=== PATIENT | female | born 1965 | race Caucasian/White ===

== ENCOUNTER 2016-10-18 19:18 | Inpatient (IN) ==
[2016-10-18] MEDS ORDERED: Ondansetron 4 MG/2 ML VIAL IV ONE (19:25)
--- NOTE | 2016-10-18 19:29 | Emergency Department Note ---
Disposition Clinical Impression: Nausea and vomiting, Chronic anemia, COPD exacerbation, CHF (congestive heart failure) Disposition: Admitted As Inpatient Condition: Fair Referrals: NO,PCP [Non-Partnered Physician] - Forms: ED Satisfaction Letter Time of Disposition: 23:04 Nausea/Vomiting/Diarrhea HPI - General Chief complaint: ED Nausea/Vomiting/Diarrhea Stated complaint: N/V Time Seen by Provider: 10/18/16 19:21 Source: patient, EMS Mode of arrival: EMS Limitations: physical limitation Nursing Notes Reviewed: Yes Vital Signs Reviewed: Yes - History of Present Illness HPI Narrative: This is a 51-year-old female who is morbidly obese who presents with nausea, vomiting, and diarrhea. None of these complaints are new to patient she states she has been on hospice care for CHF and states she has been doing this since July. Patient states she is now having trouble holding liquids down and she has not been eating for a month and a half according to patient although again she is morbidly obese. Patient does not really have any new complaints she states her abdomen hurts when she vomits from the dry heaving but does not hurt just sitting there. Patient states she is always short of breath and she does wear BiPAP and oxygen. Patient is not running any fevers. Patient's having no new urinary symptoms. Patient denies any chest pain. Pt Subjective Complaint: nausea, vomiting, diarrhea Onset (ago): month(s) - Related Data Home Medications Medication Instructions Recorded Confirmed Cetirizine HCl [Zyrtec] 10 mg PO DAILY 07/16/15 07/06/16 Cholecalciferol (Vitamin D3) 5,000 unit PO DAILY 07/16/15 07/06/16 [Vitamin D3] Ferrous Sulfate 325 mg PO TID 07/16/15 07/06/16 Glimepiride [Amaryl] 1 mg PO BID 07/16/15 07/06/16 Insulin Glargine,Hum.rec.anlog 67 unit SQ BID 07/16/15 07/06/16 [Lantus Solostar] Ondansetron [Zofran] 4 mg PO Q8H PRN 07/16/15 07/06/16 Atorvastatin [Lipitor] 40 mg PO HS 02/13/16 07/06/16 Fluticasone Propionate Nasal 1 - 2 spray NS DAILY 02/13/16 07/06/16 [Flonase] Guaifenesin [Mucinex] 600 mg PO Q12H 02/13/16 07/06/16 Magnesium Oxide [Mag-Ox] 400 mg PO BID 02/13/16 07/06/16 Oxybutynin [Ditropan] 2.5 mg PO BID 02/13/16 07/06/16 Capsaicin 0.025% [Trixaicin] 1 appl TP TID 05/30/16 07/06/16 Clotrimazole/Betameth Dip CRM 1 appl TP BID 05/30/16 07/06/16 [Lotrisone CRM] Gabapentin [Neurontin] 300 mg PO BID 05/30/16 07/06/16 Insulin LISPRO [Humalog Kwikpen 30 unit SQ TIDWM 05/30/16 07/06/16 U-100] L. Acidophilus/Pectin, [place] 1 cap PO DAILY 05/30/16 07/06/16 [Acidophilus Probiotic Capsule] LORazepam [Ativan] 1 mg PO BID PRN 05/30/16 07/06/16 Levothyroxine [Synthroid] 175 mcg PO DAILY 05/30/16 07/06/16 Lidocaine Patch [Lidoderm 5% patch] 1 patch TP DAILY 05/30/16 07/06/16 Omeprazole [PriLOSEC] 20 mg PO BIDAC 05/30/16 07/06/16 Oxygen 3.5 l NS AD 05/30/16 07/06/16 Saline Nasal [place] [[place] Nasal 1 - 2 spray NS Q4-6H PRN 05/30/16 07/06/16 [place]] Duloxetine HCl [Cymbalta] 120 mg PO DAILY 06/21/16 07/06/16 Previous Rx's Medication Instructions Recorded Budesonide/Formoterol 160/4.5 2 puff IH BIDR #1 inhaler 03/29/16 [Symbicort 160/4.5] Furosemide [Lasix] 80 mg PO BIDDIURETIC #120 tablet 03/29/16 Albuterol Sulfate [Albuterol 2 puff IH Q4HR PRN 30 Days 06/07/16 Inhaler] Cyanocobalamin (B-12) [Vitamin B12] 1,000 mcg PO Tu@0900 #10 tablet 06/07/16 Haloperidol Oral Conc [Haldol] 1 mg PO Q6H PRN #30 mls 07/08/16 LORazepam Oral Conc [Ativan Oral 1 mg PO Q6HR #30 mls 07/08/16 Conc] OxyCODONE Immed Rel [Roxicodone 5 5 mg PO Q2H PRN #70 tab 07/08/16 MG] Sennosides/Docusate Sodium [Senna 2 each PO BID #20 tablet 07/08/16 Plus] Allergies Allergy/AdvReac Type Severity Reaction Status Date / Time aspartame Allergy Hives Verified 06/08/16 15:48 ciprofloxacin [From Cipro] Allergy Hives Verified 06/08/16 15:48 escitalopram [From Lexapro] Allergy Hives Verified 06/08/16 15:48 morphine Allergy Hives Verified 06/08/16 15:48 Penicillins Allergy Hives Verified 06/08/16 15:48 prochlorperazine Allergy Hives Verified 06/08/16 15:48 All systems ED: reviewed and negative except as stated. Constitutional: Reports: other (pt states eating makes her sick). Denies: fever , chills, weakness, weight change Eyes: Denies: eye pain, eye discharge, vision change ENT ED: Denies: ear pain, throat pain, dental pain, hearing loss, epistaxis, congestion, dysphagia Cardiovascular: Denies: chest pain, palpitations, dyspnea on exertion, edema, syncope Respiratory: Reports: dyspnea. Denies: cough, wheezes, hemoptysis, stridor Gastrointestinal: Reports: abdominal pain, nausea, vomiting, diarrhea. Denies: constipation, hematemesis, melena, hematochezia Genitourinary: Denies: dysuria, frequency, hematuria, discharge Musculoskeletal: Denies: back pain, neck pain, arthralgia, myalgia Integumentary: Denies: rash, abrasion, lesions Neurological: Denies: headache, weakness, numbness, paresthesias, confusion, abnormal gait, vertigo Psychiatric: Denies: anxiety, depression, suicidal thoughts, homicidal thoughts , auditory hallucinations, visual hallucinations Endocrine: Reports: fatigue Hematological/Lymphatic: Denies: easy bleeding, easy bruising Allergic/Immunologic: Denies: facial swelling, urticaria Past Medical History - Past Medical History Attestation: Yes The following information was validated with the patient. 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 - Social History Smoking Status: Former smoker (Smoked about 2 packs per day for a long time, quit about 9 years ago) Smokeless Tobacco Status: No Alcohol use: Reports: none Drug use: Reports: none Physical Exam - General Limitations: physical limitation General appearance: alert, in no apparent distress, obese (morbid) - Head Head exam: atraumatic, normocephalic, normal inspection - Eye Eye exam: Present: normal appearance, PERRL, EOMI - ENT ENT exam: normal exam, normal oropharynx, mucous membranes moist - Expanded ENT Exam External ear exam: Present: normal external inspection Mouth exam: Present: normal external inspection Teeth exam: Present: normal inspection Throat exam: Present: normal inspection - Neck Neck exam: Present: normal inspection, full ROM, trachea midline - Chest Chest inspection: Present: normal inspection, symmetric chest wall rise - Respiratory Respiratory exam: Present: other (diminshed probably do to pts size) - Cardiovascular Cardiovascular exam: Present: regular rate, normal rhythm, normal heart sounds - Abdominal Exam Abdominal exam: Present: soft, Non-Tender, other (morbid obesity). Absent: tenderness, distention, guarding, rebound, rigidity - Extremities Exam Extremities exam: Present: normal inspection, full ROM, pedal edema. Absent: tenderness - Expanded Upper Extremity Exam Shoulder exam: Present: normal inspection, full ROM Arm exam: Present: normal inspection, full ROM Elbow exam: Present: normal inspection, full ROM Forearm/Wrist exam: Present: normal inspection, full ROM Hand exam: Present: normal inspection, full ROM Vascular exam: Normal: capillary refill, radial pulse - Expanded Lower Extremity Exam Hip/Pelvis exam: Present: normal inspection, full ROM Upper leg exam: Present: normal inspection, full ROM, swelling Knee exam: Present: normal inspection, full ROM Lower leg exam: Present: normal inspection, full ROM, swelling Ankle exam: Present: normal inspection, full ROM, swelling Foot/toe exam: Present: normal inspection, full ROM, swelling Neurovascular/Tendon exam: Absent: motor deficit, sensory deficit, tendon deficit - Back Exam Back exam: Present: normal inspection, full ROM. Absent: tenderness - Neurological Exam Neurological exam: Present: alert, oriented X3 - Expanded Neurological Exam Patient oriented to: Present: person, place, time Coma Scale Eye Opening: Spontaneous Coma Scale Motor Response: Obeys Commands Coma Scale Verbal Response: Oriented Coma Scale Total: 15 - Psychiatric Psychiatric exam: Present: normal affect, normal mood - Skin Skin exam: Present: warm, dry, intact, normal color Course Vital Signs Temperature 98.2 F 10/18/16 19:20 Pulse Rate 80 10/18/16 19:20 Respiratory Rate 20 10/18/16 19:20 Blood Pressure 98/62 10/18/16 19:20 O2 Sat by Pulse Oximetry 97 10/18/16 19:20 Temperature 98.2 F 10/18/16 19:20 Pulse Rate 80 10/18/16 19:20 Respiratory Rate 16 10/18/16 21:18 Blood Pressure 98/62 10/18/16 19:20 O2 Sat by Pulse Oximetry 100 10/18/16 21:18 Oxygen Delivery Oxygen Delivery Nasal Cannula Nausea/Vomiting/Diarrhea - Medical Records Medical records reviewed: Yes I reviewed the patient's medical records. - Lab Data Lab results reviewed: Yes I reviewed the patient's lab results. - Radiology Data Radiology results reviewed: Yes I reviewed the patient's radiology results. - EKG Data EKG attestation: Yes I reviewed and interpreted this EKG. EKG shows normal: sinus rhythm Rate: normal Rhythm: NSR [place]/QRS: normal Interpretation: no acute changes, nonspecific ST-T wave changes
[2016-10-18] MEDS: 0.9 % Sodium Chloride 500 ML IV SCH (20:19)
[2016-10-18] MEDS ORDERED: Metoclopramide 10 MG/2 ML VIAL IV ONE (20:41)
--- NOTE | 2016-10-18 23:33 | Emergency Department Note ---
START Narrative - START START: PT received in sign out by Dr. Valladares at 2330. Patient will get lab work and the plan is admission for intractable nausea vomiting and acute congestive heart failure. Disposition pending. Admission anticipated.
--- NOTE | 2016-10-18 23:34 | Emergency Department Note ---
Disposition Clinical Impression: Chronic anemia, COPD exacerbation, Acute kidney injury superimposed on chronic kidney disease Nausea and vomiting Qualifiers: Vomiting type: cyclical vomiting Vomiting Intractability: intractable Qualified Code(s): G43.A1 - Cyclical vomiting, intractable CHF (congestive heart failure) Qualifiers: Congestive heart failure type: combined Congestive heart failure chronicity: acute on chronic Qualified Code(s): I50.43 - Acute on chronic combined systolic (congestive) and diastolic (congestive) heart failure Disposition: Admitted As Inpatient Condition: Fair Referrals: NO,PCP [Non-Partnered Physician] - Forms: ED Satisfaction Letter Time of Disposition: 00:59 General Adult HPI - General Chief complaint: ED Nausea/Vomiting/Diarrhea Stated complaint: N/V Time Seen by Provider: 10/18/16 19:21 Source: patient, EMS Mode of arrival: EMS Limitations: physical limitation - History of Present Illness Pain Scale: 7 - Related Data Home Medications Medication Instructions Recorded Confirmed Cetirizine HCl [Zyrtec] 10 mg PO DAILY 07/16/15 07/06/16 Cholecalciferol (Vitamin D3) 5,000 unit PO DAILY 07/16/15 07/06/16 [Vitamin D3] Ferrous Sulfate 325 mg PO TID 07/16/15 07/06/16 Glimepiride [Amaryl] 1 mg PO BID 07/16/15 07/06/16 Insulin Glargine,Hum.rec.anlog 67 unit SQ BID 07/16/15 07/06/16 [Lantus Solostar] Ondansetron [Zofran] 4 mg PO Q8H PRN 07/16/15 07/06/16 Atorvastatin [Lipitor] 40 mg PO HS 02/13/16 07/06/16 Fluticasone Propionate Nasal 1 - 2 spray NS DAILY 02/13/16 07/06/16 [Flonase] Guaifenesin [Mucinex] 600 mg PO Q12H 02/13/16 07/06/16 Magnesium Oxide [Mag-Ox] 400 mg PO BID 02/13/16 07/06/16 Oxybutynin [Ditropan] 2.5 mg PO BID 02/13/16 07/06/16 Capsaicin 0.025% [Trixaicin] 1 appl TP TID 05/30/16 07/06/16 Clotrimazole/Betameth Dip CRM 1 appl TP BID 05/30/16 07/06/16 [Lotrisone CRM] Gabapentin [Neurontin] 300 mg PO BID 05/30/16 07/06/16 Insulin LISPRO [Humalog Kwikpen 30 unit SQ TIDWM 05/30/16 07/06/16 U-100] L. Acidophilus/Pectin, [place] 1 cap PO DAILY 05/30/16 07/06/16 [Acidophilus Probiotic Capsule] LORazepam [Ativan] 1 mg PO BID PRN 05/30/16 07/06/16 Levothyroxine [Synthroid] 175 mcg PO DAILY 05/30/16 07/06/16 Lidocaine Patch [Lidoderm 5% patch] 1 patch TP DAILY 05/30/16 07/06/16 Omeprazole [PriLOSEC] 20 mg PO BIDAC 05/30/16 07/06/16 Oxygen 3.5 l NS AD 05/30/16 07/06/16 Saline Nasal [place] [[place] Nasal 1 - 2 spray NS Q4-6H PRN 05/30/16 07/06/16 [place]] Duloxetine HCl [Cymbalta] 120 mg PO DAILY 06/21/16 07/06/16 Previous Rx's Medication Instructions Recorded Budesonide/Formoterol 160/4.5 2 puff IH BIDR #1 inhaler 03/29/16 [Symbicort 160/4.5] Furosemide [Lasix] 80 mg PO BIDDIURETIC #120 tablet 03/29/16 Albuterol Sulfate [Albuterol 2 puff IH Q4HR PRN 30 Days 06/07/16 Inhaler] Cyanocobalamin (B-12) [Vitamin B12] 1,000 mcg PO Tu@0900 #10 tablet 06/07/16 Haloperidol Oral Conc [Haldol] 1 mg PO Q6H PRN #30 mls 07/08/16 LORazepam Oral Conc [Ativan Oral 1 mg PO Q6HR #30 mls 07/08/16 Conc] OxyCODONE Immed Rel [Roxicodone 5 5 mg PO Q2H PRN #70 tab 07/08/16 MG] Sennosides/Docusate Sodium [Senna 2 each PO BID #20 tablet 07/08/16 Plus] Allergies Allergy/AdvReac Type Severity Reaction Status Date / Time aspartame Allergy Hives Verified 06/08/16 15:48 ciprofloxacin [From Cipro] Allergy Hives Verified 06/08/16 15:48 escitalopram [From Lexapro] Allergy Hives Verified 06/08/16 15:48 morphine Allergy Hives Verified 06/08/16 15:48 Penicillins Allergy Hives Verified 06/08/16 15:48 prochlorperazine Allergy Hives Verified 06/08/16 15:48 Constitutional: Reports: other (pt states eating makes her sick). Denies: fever , chills, weakness, weight change Eyes: Denies: eye pain, eye discharge, vision change ENT ED: Denies: ear pain, throat pain, dental pain, hearing loss, epistaxis, congestion, dysphagia Cardiovascular: Denies: chest pain, palpitations, dyspnea on exertion, edema, syncope Respiratory: Reports: dyspnea. Denies: cough, wheezes, hemoptysis, stridor Gastrointestinal: Reports: abdominal pain, nausea, vomiting, diarrhea. Denies: constipation, hematemesis, melena, hematochezia Genitourinary: Denies: dysuria, frequency, hematuria, discharge Musculoskeletal: Denies: back pain, neck pain, arthralgia, myalgia Integumentary: Denies: rash, abrasion, lesions Neurological: Denies: headache, weakness, numbness, paresthesias, confusion, abnormal gait, vertigo Psychiatric: Denies: anxiety, depression, suicidal thoughts, homicidal thoughts , auditory hallucinations, visual hallucinations Endocrine: Reports: fatigue Hematological/Lymphatic: Denies: easy bleeding, easy bruising Allergic/Immunologic: Denies: facial swelling, urticaria Past Medical History - Past Medical History Medical history: Reports: CHF (Chronic diastolic), COPD (Chronic respiratory failure, on home oxygen and BiPAP), diabetes (On long-term insulin), hyperlipidemia, hypertension, renal disease, thyroid disease (Hypothyroidism), other (Obstructive sleep apnea) Surgical history: Reports: appendectomy, (2), cholecystectomy, herniorrhaphy, orthopedic, other, other (Tonsillectomy) Psychiatric history: Reports: anxiety, depression 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 Valladares at 2330. Patient will get lab work and the plan is admission for intractable nausea vomiting and acute congestive heart failure. Disposition pending. Admission anticipated Time: 23:34 Reevaluation #2: The workup is complete CBC within normal limits chemistry panel shows worsening of her chronic renal insufficiency with acute exacerbation of chronic renal insufficiency. Troponin negative. Chest x-ray read by radiology shows cardiomegaly and mild pulmonary edema. Patient's symptoms are currently being managed with IV antiemetics and fluids. Awaiting hospitalist call back for admission. Patient stable. Time: 00:43 Reevaluation #3: Discussed the case with the hospitalist Dr. Springer. Patient accepted for admission to telemetry in stable condition. Admission orders place. Patient stable Time: 00:59 Vital Signs Temperature 98.2 F 10/18/16 19:20 Pulse Rate 80 10/18/16 19:20 Respiratory Rate 20 10/18/16 19:20 Blood Pressure 98/62 10/18/16 19:20 O2 Sat by Pulse Oximetry 97 10/18/16 19:20 Temperature 98.2 F 10/18/16 19:20 Pulse Rate 80 10/18/16 19:20 Respiratory Rate 16 10/18/16 21:18 Blood Pressure 98/62 10/18/16 19:20 O2 Sat by Pulse Oximetry 100 10/18/16 21:18 Oxygen Delivery Oxygen Delivery Nasal Cannula Medical Decision Making - Lab Data Result diagrams: 10/19/16 00:26 10/18/16 23:00 Lab Results 10/18/16 10/18/16 10/18/16 Range/Units 23:00 23:00 23:00 WBC TNP RBC TNP Hgb TNP Hct TNP MCV TNP MCH TNP MCHC TNP RDW TNP Plt Count TNP MPV TNP Immature Gran % (0-4) % Seg Neutrophils % % Lymphocytes % % Monocytes % % Eosinophils % % Basophils % % Neutrophils # (1.6-8.9) K/mcL Lymphocytes # (0.6-4.6) K/mcL Monocytes # (0.0-1.3) K/mcL Eosinophils # (0.0-0.6) K/mcL Basophils # (0.0-0.2) K/mcL Sodium 135 L (136-145) mEq/L Potassium 4.4 (3.5-4.5) mEq/L Chloride 92 L (98-109) mEq/L Carbon Dioxide 26 (19-29) mEq/L BUN 34 H (7-20) mg/dL Creatinine 2.50 H (0.57-1.11) mg/dL Est GFR ( Amer) 24 L (> 60) Est GFR (Non-Af Amer) 20 L (> 60) BUN/Creatinine Ratio 14 (6-26) Glucose 244 H (70-99) mg/dL Calculated Osmolality 296 (280-300) Calcium 8.9 (8.6-10.8) mg/dL Total Bilirubin 0.7 (0.2-1.2) mg/dL Direct Bilirubin 0.2 (0.0-0.5) mg/dL Indirect Bilirubin 0.5 (0.0-1.2) mg/dL AST 19 (5-34) Units/L ALT 8 (0-55) Units/L Alkaline Phosphatase 159 H (38-126) Units/L Troponin I 0.02 (0-0.03) ng/mL B-Natriuretic Peptide (0-100) pg/mL Serum Total Protein 7.6 (6.0-8.3) g/dL Albumin 2.4 L (3.5-5.0) g/dL Globulin 5.2 H (2.4-3.5) g/dL Albumin/Globulin Ratio 0.5 L (1.1-2.2) Lipase 29 (8-78) Units/L Specimen Rejected 10/18/16 10/19/16 10/19/16 Range/Units 23:00 00:26 23:06 WBC 8.8 RBC 3.83 Hgb 10.6 L Hct 32.4 L MCV 84.6 MCH 27.7 L MCHC 32.7 RDW 15.5 H Plt Count 164 MPV 9.7 Immature Gran % 2.7 (0-4) % Seg Neutrophils % 75.1 % Lymphocytes % 13.2 % Monocytes % 5.9 % Eosinophils % 2.3 % Basophils % 0.8 % Neutrophils # 6.6 (1.6-8.9) K/mcL Lymphocytes # 1.2 (0.6-4.6) K/mcL Monocytes # 0.5 (0.0-1.3) K/mcL Eosinophils # 0.2 (0.0-0.6) K/mcL Basophils # 0.1 (0.0-0.2) K/mcL Sodium (136-145) mEq/L Potassium (3.5-4.5) mEq/L Chloride (98-109) mEq/L Carbon Dioxide (19-29) mEq/L BUN (7-20) mg/dL Creatinine (0.57-1.11) mg/dL Est GFR ( Amer) (> 60) Est GFR (Non-Af Amer) (> 60) BUN/Creatinine Ratio (6-26) Glucose (70-99) mg/dL Calculated Osmolality (280-300) Calcium (8.6-10.8) mg/dL Total Bilirubin (0.2-1.2) mg/dL Direct Bilirubin (0.0-0.5) mg/dL Indirect Bilirubin (0.0-1.2) mg/dL AST (5-34) Units/L ALT (0-55) Units/L Alkaline Phosphatase (38-126) Units/L Troponin I (0-0.03) ng/mL B-Natriuretic Peptide 18 (0-100) pg/mL Serum Total Protein (6.0-8.3) g/dL Albumin (3.5-5.0) g/dL Globulin (2.4-3.5) g/dL Albumin/Globulin Ratio (1.1-2.2) Lipase (8-78) Units/L Specimen Rejected Clotted
[2016-10-18 23:40] LABS: Albumin 2.4 g/dL (3.5-5.0); Albumin/Globulin Ratio 0.5 (1.1-2.2); Bilirubin,Direct 0.2 mg/dL (0.0-0.5); Bilirubin,Indirect 0.5 mg/dL (0.0-1.2); Bilirubin,Total 0.7 mg/dL (0.2-1.2); Calcium 8.9 mg/dL (8.6-10.8); Globulin 5.2 g/dL (2.4-3.5); Potassium 4.4 mEq/L (3.5-4.5); Total Protein 7.6 g/dL (6.0-8.3)
[2016-10-19 00:33] LABS: Basophils # 0.1 K/mcL (0.0-0.2); Basophils % 0.8 %; Eosinophils # 0.2 K/mcL (0.0-0.6); Eosinophils % 2.3 %; Hematocrit 32.4 % (35.3-44.9); Hemoglobin 10.6 g/dL (11.5-15.4); Immature Granulocytes % 2.7 % (0-4); Lymphocytes # 1.2 K/mcL (0.6-4.6); Lymphocytes % 13.2 %; Mean Corpuscular HGB Conc 32.7 g/dL (31.6-35.5); Mean Corpuscular Hemoglobin 27.7 pg (28.0-33.3); Mean Corpuscular Volume 84.6 fL (83.0-100.0); Mean Platelet Volume 9.7 fL (9.4-12.4); Monocytes # 0.5 K/mcL (0.0-1.3); Monocytes % 5.9 %; Neutrophils # 6.6 K/mcL (1.6-8.9); Platelet Count 164 K/mcL (140-400); Red Blood Count 3.83 M/mcL (3.82-4.97); Red Cell Distribution Width 15.5 % (11.5-14.5); Segmented Neutrophils % 75.1 %
[2016-10-19] MEDS ORDERED: Ondansetron 4 MG/2 ML VIAL IVP ONE (00:45)
[2016-10-19] MEDS ORDERED: Albuterol 2.5 MG/3 ML NEBULIZER IH PRN (01:09)
[2016-10-19] MEDS ORDERED: Naloxone 0.4 MG/ML INJ IVP PRN (01:09)
[2016-10-19] MEDS ORDERED: *HR* OxyCODONE Immed Rel 5 MG TABLET PO PRN (01:09)
[2016-10-19] MEDS ORDERED: Haloperidol Oral Conc 10 MG/5 ML UDC PO PRN (01:14)
[2016-10-19] MEDS ORDERED: *HR* LORazepam 1 MG TABLET PO PRN (01:14)
[2016-10-19] MEDS ORDERED: NON-FORMULARY MEDICATION 1 EACH EACH (Oxygen [Oxygen] 3.5 L) NS SCH (01:15)
[2016-10-19] MEDS: Ipratropium/Albuterol Neb 3 ML IH SCH ×5 (02:19→23:13)
[2016-10-19] MEDS: Ondansetron 4 MG/2 ML VIAL IVP PRN ×3 (02:24→20:36)
[2016-10-19] MEDS: 0.9 % Sodium Chloride 1,000 ML IVC SCH (04:39)
[2016-10-19 04:52] LABS: Magnesium 0.9 mg/dL (1.6-2.6); Phosphorous 3.4 mg/dL (2.3-4.7)
[2016-10-19 04:53] LABS: INR 1.2; Prothrombin Time 13.1 Seconds (9.4-12.1)
[2016-10-19 04:56] LABS: Activated Partial Thrombo Time 35.4 Seconds (26.0-36.0)
[2016-10-19 05:15] LABS: Hemoglobin A1C 8.1 %
[2016-10-19 05:16] LABS: Thyroid Stimulating Hormone 3.273 mcIU/mL (0.350-4.840)
--- NOTE | 2016-10-19 05:17 | Internal Med History&Physical ---
Date of Encounter: 10/19/16 Time of Encounter: 01:00 Assessment and Plan (1) Intractable cyclical vomiting with nausea Current visit: Yes Status: Chronic . (2) Acute kidney injury superimposed on chronic kidney disease Current visit: Yes Status: Acute . (3) COPD exacerbation Current visit: Yes Status: Acute . (4) Chronic anemia Current visit: Yes Status: Chronic . (5) Acute exacerbation of COPD with asthma Current visit: Yes Status: Acute . (6) Diastolic CHF Current visit: Yes Status: Chronic . Qualifiers: Congestive heart failure chronicity: chronic Qualified Code(s): I50.32 - Chronic diastolic (congestive) heart failure (7) DMII (diabetes mellitus, type 2) Current visit: Yes Status: Chronic . Qualifiers: Diabetes mellitus complication status: with unspecified complications Diabetes mellitus watermaster insulin use: unspecified watermaster insulin use status Qualified Code(s): E11.8 - Type 2 diabetes mellitus with unspecified complications (8) HLD (hyperlipidemia) Current visit: Yes Status: Chronic . Qualifiers: Hyperlipidemia type: mixed hyperlipidemia Qualified Code(s): E78.2 - Mixed hyperlipidemia (9) HTN (hypertension) Current visit: Yes Status: Chronic . Qualifiers: Hypertension type: unspecified secondary hypertension Qualified Code(s): I15.9 - Secondary hypertension, unspecified; I15 - Secondary hypertension (10) Hypothyroid Current visit: Yes Status: Chronic . Qualifiers: Hypothyroidism type: acquired Qualified Code(s): E03.9 - Hypothyroidism, unspecified (11) Mixed restrictive and obstructive lung disease Current visit: Yes Status: Chronic . (12) Morbid obesity with BMI of 70 and over, adult Current visit: Yes Status: Chronic . (13) VONDA (obstructive sleep apnea) Current visit: Yes Status: Chronic . (14) Obesity hypoventilation syndrome Current visit: Yes Status: Chronic . (15) Hypotension due to medication Current visit: Yes Status: Acute . Internal Medicine - H&P: HPI Chief complaint: Nausea vomiting diarrhea. Abdominal pain. Admitted From: Emergency Dept Plans for Post Hospital Care: Home History of present illness: Ms. Pal is a 51 year old female is significant for COPD-mixed obstructive and restrictive disease, chronic respiratory failure, home oxygen and BiPAP therapy, VONDA/OHS, type 2 diabetes mellitus, hypertension, dyslipidemia, hypothyroidism, CKD III, osteoarthritis, osteopenia, depression and anxiety, chronic diastolic CHF, morbid obesity, former smoker. The patient was visited and interviewed and examined. The patient was admitted to [facility] through the emergency department when she presented via EMS services from home with complaints of intractable nausea vomiting and diarrhea. Patient acknowledges that none of the current symptoms or new. She further reports that she has been enrolled in hospice care for congestive heart failure and states that she has been having these symptoms repetitively since July 2016. She reports she is now having trouble holding liquids down. She has not eaten consistently for over a month and a half. According to the patient, eating makes her sick. She reports and general discomfort of her stomach. This pain is aggravated more from dry heaving. She experiences no pain sitting at rest or lying. She acknowledges some shortness of breath which is a chronic issue. She wears continuous oxygen as well as BiPAP at night she denies any associated fevers chills or sweats. Denies any upper or lower respiratory complaints. Denies any dysuria frequency or hematuria. Denies any bleeding events. Nice chest pain. Reports generalized fatigue. Findings in the ED: Temperature 98.2 pulse 80 respirations 20 blood pressure 98/62 O2 saturation 100% 2 L per nasal cannula. Telemetry panel normal except for sodium of 135 chloride 92. BUN 34 creatinine 2.5 GFR 20. Glucose 244 osm 296. Hepatic function normal except alkaline phosphatase 159. Albumin 2.4-7.6. Troponin 0.02. WBC 8.5 hemoglobin 10.6 MCH 27.7 platelets 164 ,000. RDW 15.5. Differential normal. Lipase 29. BNP 18. CT of the abdomen and pelvis noncontrast demonstrated no acute intra-abdominal findings. Hepatic steatosis noted. No evidence of bowel obstruction or evidence of abnormal bowel wall thickening or distention. Appendix not identified. Gallbladder surgically absent. Mild fatty atrophy of the pancreas. Santillan catheter in place of urinary bladder with collapse. Pelvic organs without acute abnormality. No free air or free fluid within the abdomen. Portable chest x- ray demonstrated persistent cardiomegaly with mild pulmonary edema. No focal consolidation or pleural effusion or pneumothorax identified. EKG normal sinus rhythm with no acute ischemic changes. Preliminary impression suggests functional abdominal pain. This is likely of musculoskeletal etiology. Radiographic studies did not disclose a discrete etiology for patient's persisting pain complaint. As it seems to relate to oral intake possibility of esophagitis gastritis duodenitis laboratory changes may be contributing to much of this. Patient is status post cholecystectomy and appendectomy. Morbidly obese the patient has a degree of anasarca and hepatic steatosis. Chest x-ray suggests cardiomegaly with mild pulmonary edema. Cyclic nausea vomiting and diarrhea may be a consequence of patient's significant medication pharmacology with adverse drug drug interaction and a relatively fasted for further elucidation will proceed. The patient given her significant comorbidities is at risk for further acute clinical decline and morbidity in this setting. Workup and treatment to progress comprehensively. Cumulative laboratory and radiographic data base was reviewed, considered and discussed. Pertinent ancillary medical records including ECW and PCI documentation, when available, was reviewed and considered. Given the patient's presenting concerns, past medical history, clinical findings and symptoms, she is admitted at this time will undergo further evaluation and disposition. Orders were written as per the computerized physician bordereau clerk system.......................................................................... .................... Consultative opinion and will be sought as clinical circumstances justify. Pain management needs will be addressed. Laboratory and radiographic data base will be updated as appropriate. Studies include: Cultures of blood urine sputum, cardiac injury panels, BNP, metabolic and hematologic panels, magnesium, phosphorus, ionized calcium, thyroid panel, lipid profile, HbgA1c, amylase, lipase, C-peptide, CRP, sed rate, respiratory infection profile, respiratory virus panel, blood gas, lactic acid, UDS, urinalysis, serologies, etc. Precautions: Aspiration, fall, delirium protocol/surveillance initiated. Telemetry with continuous hemodynamic monitoring and pulse oximetry initiated. Empiric antibody coverage: pending culture data. Bowel rest imposed. Nothing by mouth status to progress to clear liquids and progressed to ADA/cardiac diet as her clinical circumstances permit. Diabetic, prokinetic, probiotic therapy will be employed. Acute heart failure protocol/surveillance initiated. 1500 mL fluid total per 24 -hour restriction. No added salt diet restriction. Strict input output and daily weights. Calorie counts. Gentle diuresis with careful attention to metabolic and acid base balance and deficit corrections. Special studies: CT chest, CT abdomen/pelvis, chest x-ray, telemetry, EKG, bladder scan, postvoid, US retroperitoneum, echocardiogram.. Pulmonary toilet: Incentive spirometry, aerosol bronchodilator, mucolytic, antitussive, supplemental oxygen. Corticosteroid therapy may be employed. CPAP /BiPAP supplemental oxygen delivery employed. Aerosol Mucomyst therapy may be employed. Fluid and electrolyte repletion efforts will proceed. Careful attention to fluid balance and renal recovery will be emphasized. Avoidance of nephrotoxic exposure and adverse drug drug interaction in the setting of impaired renal function will be monitored closely. Acute coronary syndrome protocol/surveillance initiated. DVT and PUD prophylaxis initiated: PPI therapy, intermittent pneumatic cuffs. Subcutaneous heparin/lovenox. Early ambulation will be encouraged. Immunization updates recommended. Influenza and pneumococcal vaccinations as part of ongoing preventative healthcare recommendations strongly recommended. Smoking cessation counseling briefly addressed. Patient is a former smoker. Nicotine substitute will be provided on an as request basis. Advanced care directive discussion briefly addressed. Patient does not declare any healthcare restrictions at this time. Cardiovascular risk appraisal and cardiovascular risk reduction efforts will be emphasized. Physical and occupational therapy may be counseled to evaluate patient's functional capacity and progress mobility if her circumstances justify. Sliding scale /basal insulin coverage, ADA dietary restraint and schedule an as- needed basis fingerstick glucose assessments were initiated. Nutrition/diabetes education counseling may be considered as circumstances permit. Outpatient medication schedules will be reviewed confirmed and facilitated as appropriate. Reconciliation of home treatments including adjustments, substitutions and reintroduction into the treatment regimen as necessary maintenance therapies for chronic pre-existing medical conditions. Plan of care has been reviewed and discussed in detail with the patient. Questions addressed. Hospital course will depend on clinical findings, treatment response and potential consultative interventions. Patient is at risk for further acute clinical decline and morbidity due to her presenting chief complaints and comorbidities. Condition is serious. Prognosis is guarded. CODE STATUS is reported as full. 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 Obstructive sleep apnea. Hypoventilatory syndrome and the obese.), diabetes, GERD, hyperlipidemia , hypertension, osteoporosis (Sandhya deficiency), renal disease (Urinary incontinence.), thyroid disease, other (Anemia. Iron deficiency. Allergic rhinitis.) Psychiatric history: anxiety, depression, other - Past Surgical History Surgical History: appendectomy, , cholecystectomy, herniorrhaphy, orthopedic, other, sinus surgery (Tonsillectomy adenoidectomy.), other ( Bilateral tubal ligation.) - Social History Smoking Status: Former smoker Packs per day: Smoked approximately 2 packs per day for most of her adult life quit x9yrs Smokeless Tobacco Status: No Alcohol use: none Drug use: none Occupational status: unemployed, disabled Current living situation: With Family Activity Level: Mostly sedentary Recent Out of Country Travel Within the Last 8 Weeks: No Exposure or Possible Exposure to Illness During Travel: No - Family History Mother Adopted: No Living Status: Hx Family Cardiac Disorders: No Hx Family Respiratory Disorders: No Hx Family Cancer: Yes Hx Family GI Disorders: No Hx Family Endocrine Disorder: No Hx Family Neuromuscular Disorders: No Hx Family Neurologic Disorders: No Hx Family HEENT Disorders: No Hx Family Autoimmune Disorders: No Sister Hx Family Cancer: Yes (Sister " female cancer requiring hysterectomy") Father Adopted: No Living Status: Hx Family Cardiac Disorders: No Hx Family Respiratory Disorders: No Hx Family Cancer: No Hx Family GI Disorders: Yes Hx Family Endocrine Disorder: Yes Hx Family Neuromuscular Disorders: No Hx Family Neurologic Disorders: No Hx Family HEENT Disorders: No Hx Family Autoimmune Disorders: No Maternal Grandfather History Unknown: Yes Hx Family Cancer: Yes Internal Medicine - H&P: Meds Cetirizine HCl [Zyrtec] 10 mg PO DAILY 07/16/15 [History] Cholecalciferol (Vitamin D3) [Vitamin D3] 5,000 unit PO DAILY 07/16/15 [History] Ferrous Sulfate 325 mg PO TID 07/16/15 [History] Glimepiride [Amaryl] 1 mg PO BID 07/16/15 [History] Insulin Glargine,Hum.rec.anlog [Lantus Solostar] 67 unit SQ BID 07/16/15 [ History] Ondansetron [Zofran] 4 mg PO Q8H PRN 07/16/15 [History] Atorvastatin [Lipitor] 40 mg PO HS 02/13/16 [History] Guaifenesin [Mucinex] 600 mg PO Q12H 02/13/16 [History] Magnesium Oxide [Mag-Ox] 400 mg PO BID 02/13/16 [History] Oxybutynin [Ditropan] 2.5 mg PO BID 02/13/16 [History] Budesonide/Formoterol 160/4.5 [Symbicort 160/4.5] 2 puff IH BIDR #1 inhaler 04/08 [Rx] Capsaicin 0.025% [Trixaicin] 1 appl TP TID 05/30/16 [History] Clotrimazole/Betameth Dip CRM [Lotrisone CRM] 1 appl TP BID 05/30/16 [History] Gabapentin [Neurontin] 300 mg PO BID 05/30/16 [History] Insulin LISPRO [Humalog Kwikpen U-100] 30 unit SQ TIDWM 05/30/16 [History] LORazepam [Ativan] 1 mg PO BID PRN 05/30/16 [History] Levothyroxine [Synthroid] 175 mcg PO DAILY 05/30/16 [History] Omeprazole [PriLOSEC] 20 mg PO BIDAC 05/30/16 [History] Oxygen 3.5 l NS AD 05/30/16 [History] Saline Nasal [place] [[place] Nasal [place]] 1 - 2 spray NS Q4-6H PRN 05/30/16 [ History] Albuterol Sulfate [Albuterol Inhaler] 2 puff IH Q4HR PRN 30 Days 06/07/16 [Rx] LORazepam Oral Conc [Ativan Oral Conc] 1 mg PO Q6HR #30 mls 07/08/16 [Rx] OxyCODONE Immed Rel [Roxicodone 5 MG] 5 mg PO Q2H PRN #70 tab 07/08/16 [Rx] Cyanocobalamin (B-12) [Vitamin B12] 1,000 mcg PO DAILY 10/19/16 [History] Furosemide [Lasix] 80 mg PO BID 10/19/16 [History] Allergies aspartame Allergy (Verified 06/08/16 15:48) Hives ciprofloxacin [From Cipro] Allergy (Verified 06/08/16 15:48) Hives escitalopram [From Lexapro] Allergy (Verified 06/08/16 15:48) Hives morphine Allergy (Verified 06/08/16 15:48) Hives Penicillins Allergy (Verified 06/08/16 15:48) Hives prochlorperazine Allergy (Verified 06/08/16 15:48) Hives haloperidol [From Haldol] Adverse Reaction (Verified 10/19/16 05:29) Hallucinating All Systems PM: A 10-system review of systems was performed and is negative for pertinent findings except as documented above in the HPI. - Constitutional Constitutional: as per HPI, no chills, no fever(s), no night sweats - EENT Eyes: as per HPI, no change in vision, no discharge, no pain, no photophobia Ears: as per HPI, no ear discharge, no ear pain, no tinnitus Nose, mouth and throat: as per HPI, no dysphagia, no nasal discharge, no neck pain, no sore throat - Cardiovascular Cardiovascular ROS IM: as per HPI, no chest pain, no diaphoresis, no dyspnea, no lightheadedness, no palpitations, no syncope - Respiratory Respiratory: as per HPI, dyspnea, dyspnea on exertion, no cough, no wheezing, no excessive phlegm production - Gastrointestinal Gastrointestinal: as per HPI, abdominal pain, bloating, change in stool character, cramping, diarrhea, loose stools, nausea, vomiting, no coffee ground emesis, no hematemesis, no hematochezia, no melena - Genitourinary Genitourinary: as per HPI, no change in urinary stream, no dysuria, no flank pain, no hematuria Menstruation: as per HPI, post hysterectomy, post menopausal - Musculoskeletal Musculoskeletal ROS IM: as per HPI, no numbness, no tingling - Integumentary Integumentary IM: as per HPI, no rash, no unusual bruising - Neurological Neurological ROS: as per HPI, no confusion, no convulsions, no focal weakness, no numbness, no tingling, no tremor(s) - Psychiatric Psychiatric: as per HPI - Endocrine Endocrine IM: as per HPI - Hematologic/Lymphatic Hematologic/Lymphatic: as per HPI, no easy bruising - Allergic/Immunologic Allergic/Immunologic: as per HPI - Constitutional Vitals: Temp Pulse Resp BP Pulse Ox 97.5 F L 92 15 85/57 95 10/19/16 02:23 10/19/16 02:23 10/19/16 04:30 10/19/16 02:23 10/19/16 04:30 General appearance: Present: disheveled, mild distress, A&O X 3, morbidly obese , answers questions appropriately - Head Head exam: Present: atraumatic, normocephalic - Eye Eye exam: Present: EOMI, PERRL, conjuntiva pink, sclera anicteric Pupils: Present: normal accommodation, PERRL - ENT ENT exam: Present: mucous membranes moist, normal external ear exam, normal oropharynx - Neck Neck exam general surgery: Present: full ROM, supple, trachea midline. Absent: lymphadenopathy, tenderness, nuchal rigidity - Respiratory Respiratory exam: Present: chest wall tenderness, decreased breath sounds, prolonged expiratory phase, rhonchi, wheezes. Absent: accessory muscle use, rales, stridor - Cardiovascular Cardiovascular exam: Present: distant heart sounds, RRR, +S1, +S2. Absent: diastolic murmur, gallop, rubs, systolic murmur - GI/Abdominal GI/Abdominal exam: Present: normal bowel sounds, soft, no peritoneal signs. Absent: distended, tenderness - Extremities Exam Extremities exam: Present: full ROM, warm, radial pulses palpable and symetrical. Absent: calf tenderness, cyanotic, pedal edema - Neurological Exam Neurological exam: Present: alert, CN II-XII intact, oriented X3, no focal deficits. Absent: pronater drift, facial droop, speech deficit - Expanded Neurological Exam Neurological exam expanded: Present: protecting the airway. Absent: expressive aphasia, receptive aphasia Patient oriented to: Present: person, place, time Speech: Present: fluid speech Coma Scale Eye Opening: Spontaneous Coma Scale Motor Response: Obeys Commands Coma Scale Verbal Response: Oriented Coma Scale Total: 15 - Psychiatric Psychiatric exam: Present: normal affect, normal mood - Skin Skin exam: Present: dry, intact, warm. Absent: petechiae, rash, urticaria, vesicles Internal Med - H&P Results - Labs CBC & Chem 7: 10/20/16 03:23 10/20/16 03:23 Labs: Cardiac Enzymes 10/19/16 Range/Units 04:06 Troponin I 0.02 (0-0.03) ng/mL - Impressions Vital Signs Temp Pulse Resp BP Pulse Ox 10/19/16 04:30 15 95 10/19/16 02:23 97.5 F L 92 20 85/57 93 L 10/19/16 01:50 98.2 F 18 80/41 10/18/16 21:18 16 100 10/18/16 19:20 98.2 F 80 20 98/62 97 Intake and Output 10/18/16 10/18/16 10/19/16 15:59 23:59 07:59 Other: Stool Size Moderate Stool Characteristics Normal for Patient Stool Color Brown Weight 222.26 kg Short CBC 10/19/16 10/18/16 Range/Units 00:26 23:00 WBC 8.8 TNP Hgb 10.6 L TNP Hct 32.4 L TNP Plt Count 164 TNP Neutrophils # 6.6 (1.6-8.9) K/mcL BMP 10/18/16 Range/Units 23:00 Sodium 135 L (136-145) mEq/L Potassium 4.4 (3.5-4.5) mEq/L Chloride 92 L (98-109) mEq/L Carbon Dioxide 26 (19-29) mEq/L BUN 34 H (7-20) mg/dL Creatinine 2.50 H (0.57-1.11) mg/dL Glucose 244 H (70-99) mg/dL Calcium 8.9 (8.6-10.8) mg/dL Cardiac Enzymes 10/19/16 10/18/16 Range/Units 04:06 23:00 Troponin I 0.02 0.02 (0-0.03) ng/mL Liver Function 10/18/16 Range/Units 23:00 Total Bilirubin 0.7 (0.2-1.2) mg/dL Direct Bilirubin 0.2 (0.0-0.5) mg/dL AST 19 (5-34) Units/L ALT 8 (0-55) Units/L Alkaline Phosphatase 159 H (38-126) Units/L Albumin 2.4 L (3.5-5.0) g/dL Abnormal lab results Hgb 10.6 g/dL (11.5-15.4) L 10/19/16 00:26 Hct 32.4 % (35.3-44.9) L 10/19/16 00:26 MCH 27.7 pg (28.0-33.3) L 10/19/16 00:26 RDW 15.5 % (11.5-14.5) H 10/19/16 00:26 PT 13.1 Seconds (9.4-12.1) H 10/19/16 04:24 Sodium 135 mEq/L (136-145) L 10/18/16 23:00 Chloride 92 mEq/L (98-109) L 10/18/16 23:00 BUN 34 mg/dL (7-20) H 10/18/16 23:00 Creatinine 2.50 mg/dL (0.57-1.11) H 10/18/16 23:00 Est GFR ( Amer) 24 (> 60) L 10/18/16 23:00 Est GFR (Non-Af Amer) 20 (> 60) L 10/18/16 23:00 Glucose 244 mg/dL (70-99) H 10/18/16 23:00 Hemoglobin A1c 8.1 % (-5.6) H 10/19/16 04:24 Magnesium 0.9 mg/dL (1.6-2.6) L 10/19/16 04:24 Alkaline Phosphatase 159 Units/L (38-126) H 10/18/16 23:00 Creatine Kinase 14 Units/L (29-168) L 10/19/16 04:06 C-Reactive Protein 67 mg/L (Less than 5) H 10/19/16 04:06 Albumin 2.4 g/dL (3.5-5.0) L 10/18/16 23:00 Globulin 5.2 g/dL (2.4-3.5) H 10/18/16 23:00 Albumin/Globulin Ratio 0.5 (1.1-2.2) L 10/18/16 23:00 Allergies Allergy/AdvReac Type Severity Reaction Status Date / Time aspartame Allergy Hives Verified 06/08/16 15:48 ciprofloxacin [From Cipro] Allergy Hives Verified 06/08/16 15:48 escitalopram [From Lexapro] Allergy Hives Verified 06/08/16 15:48 morphine Allergy Hives Verified 06/08/16 15:48 Penicillins Allergy Hives Verified 06/08/16 15:48 prochlorperazine Allergy Hives Verified 06/08/16 15:48 Laboratory Results WBC 8.8 K/mcL (4.3-11.1) 10/19/16 00:26 RBC 3.83 M/mcL (3.82-4.97) 10/19/16 00:26 Hgb 10.6 g/dL (11.5-15.4) L 10/19/16 00:26 Hct 32.4 % (35.3-44.9) L 10/19/16 00:26 MCV 84.6 fL (83.0-100.0) 10/19/16 00:26 MCH 27.7 pg (28.0-33.3) L 10/19/16 00:26 MCHC 32.7 g/dL (31.6-35.5) 10/19/16 00:26 RDW 15.5 % (11.5-14.5) H 10/19/16 00:26 Plt Count 164 K/mcL (140-400) 10/19/16 00:26 MPV 9.7 fL (9.4-12.4) 10/19/16 00:26 Immature Gran % 2.7 % (0-4) 10/19/16 00:26 Seg Neutrophils % 75.1 % 10/19/16 00:26 Lymphocytes % 13.2 % 10/19/16 00:26 Monocytes % 5.9 % 10/19/16 00:26 Eosinophils % 2.3 % 10/19/16 00:26 Basophils % 0.8 % 10/19/16 00:26 Neutrophils # 6.6 K/mcL (1.6-8.9) 10/19/16 00:26 Lymphocytes # 1.2 K/mcL (0.6-4.6) 10/19/16 00:26 Monocytes # 0.5 K/mcL (0.0-1.3) 10/19/16 00:26 Eosinophils # 0.2 K/mcL (0.0-0.6) 10/19/16 00:26 Basophils # 0.1 K/mcL (0.0-0.2) 10/19/16 00:26 PT 13.1 Seconds (9.4-12.1) H 10/19/16 04:24 INR 1.2 10/19/16 04:24 APTT 35.4 Seconds (26.0-36.0) 10/19/16 04:24 Sodium 135 mEq/L (136-145) L 10/18/16 23:00 Potassium 4.4 mEq/L (3.5-4.5) 10/18/16 23:00 Chloride 92 mEq/L (98-109) L 10/18/16 23:00 Carbon Dioxide 26 mEq/L (19-29) 10/18/16 23:00 BUN 34 mg/dL (7-20) H 10/18/16 23:00 Creatinine 2.50 mg/dL (0.57-1.11) H 10/18/16 23:00 Est GFR ( Amer) 24 (> 60) L 10/18/16 23:00 Est GFR (Non-Af Amer) 20 (> 60) L 10/18/16 23:00 BUN/Creatinine Ratio 14 (6-26) 10/18/16 23:00 Glucose 244 mg/dL (70-99) H 10/18/16 23:00 Est Mean Plasma Glucose 186 mg/dl 10/19/16 04:24 Hemoglobin A1c 8.1 % (-5.6) H 10/19/16 04:24 Calculated Osmolality 296 (280-300) 10/18/16 23:00 Lactic Acid 1.5 mmol/L (0.5-2.2) 10/19/16 04:24 Calcium 8.9 mg/dL (8.6-10.8) 10/18/16 23:00 Phosphorus 3.4 mg/dL (2.3-4.7) 10/19/16 04:24 Magnesium 0.9 mg/dL (1.6-2.6) L 10/19/16 04:24 Total Bilirubin 0.7 mg/dL (0.2-1.2) 10/18/16 23:00 Direct Bilirubin 0.2 mg/dL (0.0-0.5) 10/18/16 23:00 Indirect Bilirubin 0.5 mg/dL (0.0-1.2) 10/18/16 23:00 AST 19 Units/L (5-34) 10/18/16 23:00 ALT 8 Units/L (0-55) 10/18/16 23:00 Alkaline Phosphatase 159 Units/L (38-126) H 10/18/16 23:00 Creatine Kinase 14 Units/L (29-168) L 10/19/16 04:06 Troponin I 0.02 ng/mL (0-0.03) 10/19/16 04:06 C-Reactive Protein 67 mg/L (Less than 5) H 10/19/16 04:06 B-Natriuretic Peptide 15 pg/mL (0-100) 10/19/16 04:24 Serum Total Protein 7.6 g/dL (6.0-8.3) 10/18/16 23:00 Albumin 2.4 g/dL (3.5-5.0) L 10/18/16 23:00 Globulin 5.2 g/dL (2.4-3.5) H 10/18/16 23:00 Albumin/Globulin Ratio 0.5 (1.1-2.2) L 10/18/16 23:00 Lipase 29 Units/L (8-78) 10/18/16 23:00 TSH 3.273 mcIU/mL (0.350-4.840) 10/19/16 04:06 Specimen Rejected Clotted 10/19/16 23:06 Impressions Chest X-Ray 10/18/16 19:24 IMPRESSION: Persistent cardiomegaly and mild pulmonary edema. D/ / Chintan Bowman MD / Chintan Bowman MD Interpreting Provider: Chintan Bowman MD Abdomen/Pelvis CT 10/18/16 19:25 IMPRESSION: 1. No acute intra-abdominal findings. 2. Hepatic steatosis. D/ / Chintan Bowman MD / Chintan Bowman MD Interpreting Provider: Chintan Bowman MD Chest CT 10/19/16 01:09 IMPRESSION: 1. No acute airspace disease. 2. Pulmonary hypertension. D/ / Martín Alexander MD / Martín Alexander MD Interpreting Provider: Martín Alexander MD
[2016-10-19] MEDS ORDERED: Magnesium Oxide 400 MG TABLET PO SCH (09:00)
[2016-10-19] MEDS: Loratadine 10 MG TABLET PO SCH (09:07)
[2016-10-19] MEDS: Gabapentin 300 MG CAPSULE PO SCH ×2 (09:07→20:33)
[2016-10-19] MEDS: Insulin DETEMIR 100 UNIT/ML X5UNITS SQ SCH ×2 (09:10→20:33)
[2016-10-19] MEDS: Insulin LISPRO 300 UNITS/3 ML VIAL SQ SCH ×3 (09:35→17:14)
[2016-10-19] MEDS ORDERED: Magnesium Sulfate 2 GM in D5% in Water 100 ML IVPB ONE (09:45)
[2016-10-19] MEDS: Budesonide/Formoterol 160/4.5 MDI IH SCH ×2 (10:17→23:13)
[2016-10-19 11:28] LABS: Bilirubin,Urine Moderate (Negative); Blood,Urine Large (Negative); Clarity,Urine Turbid (Clear); Color,Urine Red (Yellow); Glucose,Urine (UA) Normal (Normal); Ketones,Urine Trace mg/dL (Negative); Leukocyte Esterase,Urine Large (Negative); Nitrite,Urine Positive (Negative); PH,Urine 5.5 pH Units (5.0-8.0); Protein,Urine 100 mg/dL (Neg-Trace); Specific Gravity,Urine 1.021 (1.010-1.025); Urobilinogen,Urine Normal (Normal)
[2016-10-19 11:29] LABS: Bacteria,Urine Many per hpf (None-Few); Squamous Epithelial Cell,Urine Many per lpf (None-Few); WBC,Urine TNTC per hpf (0-3)
[2016-10-19 11:39] LABS: Amphetamine Screen,Urine Negative ng/mL (Cutoff=1000); Barbiturate Screen,Urine Negative ng/mL (Cutoff=200); Benzodiazepines Screen,Urine Negative ng/mL (Cutoff=200); Cannabinoid Screen,Urine Negative ng/mL (Cutoff = 50); Cocaine Screen,Urine Negative ng/mL (Cutoff= 300); Opiate Screen,Urine Positive ng/mL (Cutoff=300); Phencyclidine Screen,Urine Negative ng/mL (Cutoff=25)
[2016-10-19 11:57] LABS: Transitional Epi Cells,Urine Present per hpf (None-Few); Yeast,Urine Present per hpf (None Seen)
[2016-10-19 11:58] LABS: RBC,Urine Present per hpf (0-3); Renal Epithelial Cells,Urine Present per hpf (None-Few)
--- NOTE | 2016-10-19 15:52 | Electrocardiograph Report ---
[facility] Test Date: 2016-10-18 Pat Name: Silvina Pal Department: 102 Room: 3B23 Gender: F Order [place]: [facility] : 1965 Requested By: Tara Valladares Order Number: [id number] Reading MD: Larisa Apodaca Measurements Intervals [place] Rate: 78 P: 40 PA: 195 QRS: 44 QRSD: 90 T: 40 QT: 380 QTc: 413 Interpretive Statements SINUS RHYTHM NONSPECIFIC ST \T\ T-WAVE ABNORMALITY Electronically Signed On 10-19-16 15:50:40 EST by Larisa Apodaca
[2016-10-19] MEDS: *HR* HYDROmorphone (PF) 1 MG/ML SYRINGE IVP PRN ×2 (16:17→22:36)
--- NOTE | 2016-10-19 20:53 | Internal Med Progress Note ---
Date of Encounter: 10/19/16 Time of Encounter: 12:35 - Assessment and plan (1) Acute exacerbation of COPD with asthma Current Visit: Yes Status: Acute Assessment and plan: Continue current therapy (2) Acute kidney injury superimposed on chronic kidney disease Current Visit: Yes Status: Acute Assessment and plan: Trend creatinine (3) Diastolic CHF Current Visit: Yes Status: Chronic Qualifiers: Congestive heart failure chronicity: chronic Qualified Code(s): I50.32 - Chronic diastolic (congestive) heart failure (4) Intractable cyclical vomiting with nausea Current Visit: Yes Status: Chronic (5) Chronic anemia Current Visit: Yes Status: Chronic (6) DMII (diabetes mellitus, type 2) Current Visit: Yes Status: Chronic Qualifiers: Diabetes mellitus complication status: with unspecified complications Diabetes mellitus [facility] insulin use: unspecified [facility] insulin use status Qualified Code(s): E11.8 - Type 2 diabetes mellitus with unspecified complications (7) HLD (hyperlipidemia) Current Visit: Yes Status: Chronic Qualifiers: Hyperlipidemia type: mixed hyperlipidemia Qualified Code(s): E78.2 - Mixed hyperlipidemia (8) HTN (hypertension) Current Visit: Yes Status: Chronic Qualifiers: Hypertension type: unspecified secondary hypertension Qualified Code(s): I15.9 - Secondary hypertension, unspecified; I15 - Secondary hypertension (9) Hypothyroid Current Visit: Yes Status: Chronic Qualifiers: Hypothyroidism type: acquired Qualified Code(s): E03.9 - Hypothyroidism, unspecified (10) Morbid obesity with BMI of 70 and over, adult Current Visit: Yes Status: Chronic (11) VONDA (obstructive sleep apnea) Current Visit: Yes Status: Chronic (12) Obesity hypoventilation syndrome Current Visit: Yes Status: Chronic - Subjective Interval history: 51 Y/O F with PMH of Morbid Obesity, discharged 06/2016 to home hospice Being managed in this admission for acute on chronic respiratory failure and CHRISTO other chronic conditions are stabilized Patient reports intractable nausea and vomiting for the past 3 months, with poor oral intake However, chart review reveals weight gain from 209kg 06/2016 to 222kg this admission She is seen at bedside with spouse Denies new complains Requesting for pain medications IV as she is not tolerating orally - Constitutional Vitals: Temp Pulse Resp BP Pulse Ox 97.7 F 80 16 97/67 100 10/19/16 18:47 10/19/16 18:47 10/19/16 18:47 10/19/16 18:47 10/19/16 18:47 General appearance: Present: A&O X 3, morbidly obese, no acute distress - Head Head exam: Present: atraumatic - Eye Eye exam: Present: PERRL, conjuntiva pink, sclera anicteric - ENT ENT exam: Present: mucous membranes moist - Neck Neck exam general surgery: Present: normal inspection - Respiratory Additional comments: Diminished breath sounds due to her body habitus however, no crackles or rales - Cardiovascular Cardiovascular exam: Present: RRR, +S1, +S2. Absent: diastolic murmur, gallop, rubs, systolic murmur - GI/Abdominal GI/Abdominal exam: Present: normal bowel sounds, soft, no peritoneal signs. Absent: distended, tenderness - Extremities Exam Extremities exam: Present: warm, radial pulses palpable and symetrical. Absent : calf tenderness, cyanotic, pedal edema - Neurological Exam Neurological exam: Present: CN II-XII intact, oriented X3, no focal deficits. Absent: pronater drift, facial droop, speech deficit Internal Medicine: Result - Labs CBC & Chem 7: 10/19/16 00:26 10/18/16 23:00 Labs: Cardiac Enzymes 10/19/16 Range/Units 04:06 Troponin I 0.02 (0-0.03) ng/mL Urine 10/19/16 Range/Units 10:09 Urine Color Red A (Yellow) Urine Clarity Turbid A (Clear) Urine pH 5.5 (5.0-8.0) pH Units Ur Specific [place] 1.021 (1.010-1.025) Urine Protein 100 H (Neg-Trace) mg/dL Urine Glucose (UA) Normal (Normal) mg/dL - ABG Interpretation ABG results: PT/INR, D-dimer PT 13.1 Seconds (9.4-12.1) H 10/19/16 04:24 Consult Discharge Plan - Plan Referrals: Aide Foss DO [Primary Care Provider] - 10/26/16 1:45 pm ()
[2016-10-20] MEDS: 0.9 % Sodium Chloride 1,000 ML IVC SCH ×2 (03:16→03:20)
[2016-10-20] MEDS: 0.9 % Sodium Chloride 500 ML IV SCH (03:19)
[2016-10-20] MEDS: Ipratropium/Albuterol Neb 3 ML IH SCH ×4 (04:29→22:12)
[2016-10-20 05:08] LABS: Basophils % 0.4 %; Eosinophils # 0.1 K/mcL (0.0-0.6); Eosinophils % 2.1 %; Hematocrit 30.8 % (35.3-44.9); Hemoglobin 9.7 g/dL (11.5-15.4); Immature Granulocytes % 0.4 % (0-4); Lymphocytes # 0.7 K/mcL (0.6-4.6); Lymphocytes % 10.1 %; Mean Corpuscular HGB Conc 31.5 g/dL (31.6-35.5); Mean Corpuscular Hemoglobin 28.2 pg (28.0-33.3); Mean Corpuscular Volume 89.5 fL (83.0-100.0); Mean Platelet Volume 9.8 fL (9.4-12.4); Monocytes # 0.3 K/mcL (0.0-1.3); Monocytes % 5.1 %; Neutrophils # 5.5 K/mcL (1.6-8.9); Red Blood Count 3.44 M/mcL (3.82-4.97); Red Cell Distribution Width 15.7 % (11.5-14.5); Segmented Neutrophils % 81.9 %
[2016-10-20 05:40] LABS: Platelet Count 167 K/mcL (140-400)
[2016-10-20 05:46] LABS: Calcium 8.4 mg/dL (8.6-10.8); Magnesium 1.8 mg/dL (1.6-2.6); Phosphorous 4.1 mg/dL (2.3-4.7)
[2016-10-20 05:50] LABS: Adenovirus Not Detected (Not Detect); Bordetella Pertussis Not Detected (Not Detect); Chlamydophila pneumoniae Not Detected (Not Detect); Coronavirus 229E Not Detected (Not Detect); Coronavirus HKU1 Not Detected (Not Detect); Coronavirus NL63 Not Detected (Not Detect); Coronavirus OC43 Not Detected (Not Detect); Human Metapneumovirus Not Detected (Not Detect); Human Rhinovirus/Enterovirus Not Detected (Not Detect); Influenza A Subtype 2009 H1 Not Detected (Not Detect); Influenza A Untypeable Not Detected (Not Detect); Influenza B Not Detected (Not Detect); Mycoplasma pneumoniae Not Detected (Not Detect); Parainfluenza Virus 1 Not Detected (Not Detect); Parainfluenza Virus 2 Not Detected (Not Detect); Parainfluenza Virus 3 Not Detected (Not Detect); Parainfluenza Virus 4 Not Detected (Not Detect); Respiratory Syncytial Virus Not Detected (Not Detect)
[2016-10-20 06:18] LABS: Potassium 2.6 mEq/L (3.5-4.5)
[2016-10-20] MEDS ORDERED: Ondansetron ODT 4 MG TAB.RAPDIS SL ONE (08:30)
[2016-10-20] MEDS ORDERED: Magnesium Sulfate 2 GM in D5% in Water 100 ML IVPB SCH (09:00)
[2016-10-20] MEDS: Insulin LISPRO 300 UNITS/3 ML VIAL SQ SCH ×3 (09:36→17:54)
[2016-10-20] MEDS: Gabapentin 300 MG CAPSULE PO SCH ×2 (09:37→20:28)
[2016-10-20] MEDS: Loratadine 10 MG TABLET PO SCH (09:37)
[2016-10-20] MEDS: Insulin DETEMIR 100 UNIT/ML X5UNITS SQ SCH ×2 (10:49→21:55)
[2016-10-20] MEDS: Budesonide/Formoterol 160/4.5 MDI IH SCH ×2 (11:08→22:13)
[2016-10-20] MEDS ORDERED: 0.9 % Sodium Chloride 1,000 ML IVC ONE (11:58)
[2016-10-20] MEDS: *HR* HYDROmorphone (PF) 1 MG/ML SYRINGE IVP PRN ×2 (12:04→18:35)
[2016-10-20] MEDS: *HR* Heparin 5,000 UNIT/ML VIAL SQ SCH (15:35)
--- NOTE | 2016-10-20 16:27 | General Surgery Consult Note ---
Date of Encounter: 10/20/16 Time of Encounter: 16:27 Assessment and Plan (1) Intractable cyclical vomiting with nausea Current Visit: Yes Status: Chronic Surgery would like to do an EGD, patient has been informed and is considering the risks and benefits of the procedure before giving consent (2) Acute kidney injury superimposed on chronic kidney disease Current Visit: Yes Status: Acute improving management per medicine team (3) Chronic anemia Current Visit: Yes Status: Chronic stable (4) DMII (diabetes mellitus, type 2) Current Visit: Yes Status: Chronic management per medicine team Qualifiers: Diabetes mellitus complication status: with unspecified complications Diabetes mellitus [place] insulin use: unspecified [place] insulin use status Qualified Code(s): E11.8 - Type 2 diabetes mellitus with unspecified complications (5) VONDA (obstructive sleep apnea) Current Visit: Yes Status: Chronic BIPAP at night (6) Obesity hypoventilation syndrome Current Visit: Yes Status: Chronic management per medicine team supplemental oxygen BIPAP PRN and when sleeping History of Present Illness Consult date: 10/20/16 Reason for consult: other (intractable nausea and vomiting) Requesting physician: Jensen Bangura History of present illness: 51-year-old female with the past medical history of diabetes, stage III CKD, COPD requiring supplemental oxygen 24/7 with BiPAP during sleep, pulmonary hypertension, morbid obesity presents with a several month history. This has been going on at least since with a worsening since July. She states that everything she eats come and that she also throws up yellow or green fluid. She has had a greater than 100 pound weight loss without trying to lose weight. She has no appetite. She has had a decrease in her bowel movements from once a day to every other day, she also notes that she now has diarrhea - sometimes with urgency. Her last EGD and colonoscopy were 2-3 years ago in [place]. As far as she can recall, the results were normal. Chest CT shows pulmonary hypertension. Abdominal/pelvic CT shows hepatic steatosis. 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 Obstructive sleep apnea. Hypoventilatory syndrome and the obese.), diabetes, GERD, hyperlipidemia , hypertension, osteoporosis (Sandhya deficiency), renal disease (Urinary incontinence.), thyroid disease, other (Anemia. Iron deficiency. Allergic rhinitis.) Psychiatric history: anxiety, depression, other - Past Surgical History Surgical History: appendectomy, , cholecystectomy, herniorrhaphy, orthopedic, other, sinus surgery (Tonsillectomy adenoidectomy.), other ( Bilateral tubal ligation.) - Social History Smoking Status: Former smoker Packs per day: Smoked approximately 2 packs per day for most of her adult life quit x9yrs Smokeless Tobacco Status: No Alcohol use: none Drug use: none - Family History Mother Adopted: No Living Status: Hx Family Cardiac Disorders: No Hx Family Respiratory Disorders: No Hx Family Cancer: Yes Hx Family GI Disorders: No Hx Family Endocrine Disorder: No Hx Family Neuromuscular Disorders: No Hx Family Neurologic Disorders: No Hx Family HEENT Disorders: No Hx Family Autoimmune Disorders: No Sister Hx Family Cancer: Yes (Sister " female cancer requiring hysterectomy") Father Adopted: No Living Status: Hx Family Cardiac Disorders: No Hx Family Respiratory Disorders: No Hx Family Cancer: No Hx Family GI Disorders: Yes Hx Family Endocrine Disorder: Yes Hx Family Neuromuscular Disorders: No Hx Family Neurologic Disorders: No Hx Family HEENT Disorders: No Hx Family Autoimmune Disorders: No Maternal Grandfather History Unknown: Yes Hx Family Cancer: Yes Medications and Allergies Cetirizine HCl [Zyrtec] 10 mg PO DAILY 07/16/15 [History] Cholecalciferol (Vitamin D3) [Vitamin D3] 5,000 unit PO DAILY 07/16/15 [History] Ferrous Sulfate 325 mg PO TID 07/16/15 [History] Glimepiride [Amaryl] 1 mg PO BID 07/16/15 [History] Insulin Glargine,Hum.rec.anlog [Lantus Solostar] 67 unit SQ BID 07/16/15 [ History] Ondansetron [Zofran] 4 mg PO Q8H PRN 07/16/15 [History] Atorvastatin [Lipitor] 40 mg PO HS 02/13/16 [History] Guaifenesin [Mucinex] 600 mg PO Q12H 02/13/16 [History] Magnesium Oxide [Mag-Ox] 400 mg PO BID 02/13/16 [History] Oxybutynin [Ditropan] 2.5 mg PO BID 02/13/16 [History] Budesonide/Formoterol 160/4.5 [Symbicort 160/4.5] 2 puff IH BIDR #1 inhaler 04/08 [Rx] Capsaicin 0.025% [Trixaicin] 1 appl TP TID 05/30/16 [History] Clotrimazole/Betameth Dip CRM [Lotrisone CRM] 1 appl TP BID 05/30/16 [History] Gabapentin [Neurontin] 300 mg PO BID 05/30/16 [History] Insulin LISPRO [Humalog Kwikpen U-100] 30 unit SQ TIDWM 05/30/16 [History] LORazepam [Ativan] 1 mg PO BID PRN 05/30/16 [History] Levothyroxine [Synthroid] 175 mcg PO DAILY 05/30/16 [History] Omeprazole [PriLOSEC] 20 mg PO BIDAC 05/30/16 [History] Oxygen 3.5 l NS AD 05/30/16 [History] Saline Nasal [place] [Deputy Nasal [place]] 1 - 2 spray NS Q4-6H PRN 05/30/16 [ History] Albuterol Sulfate [Albuterol Inhaler] 2 puff IH Q4HR PRN 30 Days 06/07/16 [Rx] LORazepam Oral Conc [Ativan Oral Conc] 1 mg PO Q6HR #30 mls 07/08/16 [Rx] OxyCODONE Immed Rel [Roxicodone 5 MG] 5 mg PO Q2H PRN #70 tab 07/08/16 [Rx] Cyanocobalamin (B-12) [Vitamin B12] 1,000 mcg PO DAILY 10/19/16 [History] Furosemide [Lasix] 80 mg PO BID 10/19/16 [History] Allergies aspartame Allergy (Verified 06/08/16 15:48) Hives ciprofloxacin [From Cipro] Allergy (Verified 06/08/16 15:48) Hives escitalopram [From Lexapro] Allergy (Verified 06/08/16 15:48) Hives morphine Allergy (Verified 06/08/16 15:48) Hives Penicillins Allergy (Verified 06/08/16 15:48) Hives prochlorperazine Allergy (Verified 06/08/16 15:48) Hives haloperidol [From Haldol] Adverse Reaction (Verified 10/19/16 05:29) Hallucinating Review of Systems All systems PM: A 10-system review of systems was performed and is negative for pertinent findings except as documented above in the HPI. - Constitutional weight loss, no chills, no fever(s) - Gastrointestinal change in bowel habits (less frequent bowel movements), diarrhea, nausea, vomiting (bilious, nonbloody) - Genitourinary Genitourinary: no dysuria General Surgery Exam Initial Vital Signs Temp Pulse Resp BP Pulse Ox 98.2 F 80 20 98/62 97 10/18/16 19:20 10/18/16 19:20 10/18/16 19:20 10/18/16 19:20 10/18/16 19:20 Exam Initial Vital Signs Temp Pulse Resp BP Pulse Ox 98.2 F 80 20 98/62 97 10/18/16 19:20 10/18/16 19:20 10/18/16 19:20 10/18/16 19:20 10/18/16 19:20 - General physical appearance no distress, obese (morbidly), other (on BIPAP) - Eyes PERRL, normal ocular movement - ENT Other (on BIPAP support) - Neck trachea midline - Respiratory clear to auscultation - Abdomen Abdomen: soft, tender (LLQ, mild) - Integumentary no rash - Neurologic CN 2-12 grossly intact - Psychiatric oriented to time, oriented to person, oriented to place, speech is normal Results - Labs 10/20/16 03:23 10/20/16 03:23 Abnormal lab results RBC 3.44 M/mcL (3.82-4.97) L 10/20/16 03:23 Hgb 9.7 g/dL (11.5-15.4) L 10/20/16 03:23 Hct 30.8 % (35.3-44.9) L 10/20/16 03:23 MCHC 31.5 g/dL (31.6-35.5) L 10/20/16 03:23 RDW 15.7 % (11.5-14.5) H 10/20/16 03:23 PT 13.1 Seconds (9.4-12.1) H 10/19/16 04:24 Potassium 2.6 mEq/L (3.5-4.5) L D 10/20/16 03:23 Chloride 96 mEq/L (98-109) L 10/20/16 03:23 BUN 33 mg/dL (7-20) H 10/20/16 03:23 Creatinine 2.26 mg/dL (0.57-1.11) H 10/20/16 03:23 Est GFR ( Amer) 27 (> 60) L 10/20/16 03:23 Est GFR (Non-Af Amer) 23 (> 60) L 10/20/16 03:23 POC Glucose 111 (58-89) H 10/20/16 12:01 Hemoglobin A1c 8.1 % (-5.6) H 10/19/16 04:24 Calcium 8.4 mg/dL (8.6-10.8) L 10/20/16 03:23 Alkaline Phosphatase 159 Units/L (38-126) H 10/18/16 23:00 Creatine Kinase 14 Units/L (29-168) L 10/19/16 04:06 C-Reactive Protein 67 mg/L (Less than 5) H 10/19/16 04:06 Albumin 2.4 g/dL (3.5-5.0) L 10/18/16 23:00 Globulin 5.2 g/dL (2.4-3.5) H 10/18/16 23:00 Albumin/Globulin Ratio 0.5 (1.1-2.2) L 10/18/16 23:00 Ur Specimen Adequacy See below A 10/19/16 10:09 Urine Color Red (Yellow) A 10/19/16 10:09 Urine Clarity Turbid (Clear) A 10/19/16 10:09 Urine Protein 100 mg/dL (Neg-Trace) H 10/19/16 10:09 Urine Ketones Trace mg/dL (Negative) H 10/19/16 10:09 Urine Blood Large (Negative) H 10/19/16 10:09 Urine Nitrite Positive (Negative) A 10/19/16 10:09 Urine Bilirubin Moderate (Negative) H 10/19/16 10:09 Ur Leukocyte Esterase Large (Negative) H 10/19/16 10:09 Urine Microscopic WBC TNTC per hpf (0-3) H 10/19/16 10:09 Ur Squamous Epith Cells Many per lpf (None-Few) H 10/19/16 10:09 Urine Bacteria Many per hpf (None-Few) H 10/19/16 10:09 Urine Yeast Present per hpf (None Seen) H 10/19/16 10:09 Urine Opiates Screen Positive ng/mL ([id number]) H 10/19/16 10:09 All other labs normal. Consult Discharge Plan - Plan Referrals: Aide Foss DO [Primary Care Provider] - 10/26/16 1:45 pm ()
--- NOTE | 2016-10-20 17:37 | Internal Med Progress Note ---
Date of Encounter: 10/20/16 Time of Encounter: 12:00 - Assessment and plan (1) Hypokalemia Current Visit: Yes Status: Acute (2) Acute exacerbation of COPD with asthma Current Visit: Yes Status: Acute Assessment and plan: Continue current therapy (3) Acute kidney injury superimposed on chronic kidney disease Current Visit: Yes Status: Acute Assessment and plan: Slight improvement in creatinine Received 1L bolus today Gentle maintenance with close monitoring of respiratory status (4) Intractable cyclical vomiting with nausea Current Visit: Yes Status: Chronic Assessment and plan: Acute on chronic GI review appreciated For EGD (5) Diastolic CHF Current Visit: Yes Status: Chronic Assessment and plan: Not in exacerbation Will need close monitoring due to requirement of IVF or CHRISTO Qualifiers: Congestive heart failure chronicity: chronic Qualified Code(s): I50.32 - Chronic diastolic (congestive) heart failure (6) Chronic anemia Current Visit: Yes Status: Chronic (7) DMII (diabetes mellitus, type 2) Current Visit: Yes Status: Chronic Qualifiers: Diabetes mellitus complication status: with unspecified complications Diabetes mellitus retirement insulin use: unspecified [employer] insulin use status Qualified Code(s): E11.8 - Type 2 diabetes mellitus with unspecified complications (8) HLD (hyperlipidemia) Current Visit: Yes Status: Chronic Qualifiers: Hyperlipidemia type: mixed hyperlipidemia Qualified Code(s): E78.2 - Mixed hyperlipidemia (9) HTN (hypertension) Current Visit: Yes Status: Chronic Qualifiers: Hypertension type: unspecified secondary hypertension Qualified Code(s): I15.9 - Secondary hypertension, unspecified; I15 - Secondary hypertension (10) Hypothyroid Current Visit: Yes Status: Chronic Qualifiers: Hypothyroidism type: acquired Qualified Code(s): E03.9 - Hypothyroidism, unspecified (11) Morbid obesity with BMI of 70 and over, adult Current Visit: Yes Status: Chronic (12) VONDA (obstructive sleep apnea) Current Visit: Yes Status: Chronic (13) Obesity hypoventilation syndrome Current Visit: Yes Status: Chronic - Subjective Interval history: 51 Y/O F with PMH of Morbid Obesity, discharged 06/2016 to home hospice Being managed in this admission for acute on chronic respiratory failure and CHRISTO She has been noted to have lost >100 pounds unintentionally and reports not being able to tolerate orally She is seen today at bedside with no new complains She reports that she revoked her hospice status when she came into the ER, she has had multiple abdominal surgeries in the past, and had a B last night She has been started on IVF boluses and will be made inpatient due to necessity for work up of intractable nausea and vomiting, continuous IV use of opiates, IV replacement of electrolytes, CHRISTO on CKD with slow improvement and high risk respiratory status Surgery has been consulted for GI complains - Constitutional Vitals: Temp Pulse Resp BP Pulse Ox 98.0 F 77 15 80/54 100 10/20/16 16:35 10/20/16 16:35 10/20/16 16:35 10/20/16 16:35 10/20/16 16:35 General appearance: Present: A&O X 3, morbidly obese, no acute distress, answers questions appropriately - Head Head exam: Present: atraumatic - Eye Eye exam: Present: PERRL, conjuntiva pink, sclera anicteric - ENT ENT exam: Present: mucous membranes dry - Respiratory Respiratory exam: Present: CTAB Additional comments: Diminished due to body habitus - Cardiovascular Cardiovascular exam: Present: RRR, +S1, +S2 - GI/Abdominal GI/Abdominal exam: Present: normal bowel sounds, soft, no peritoneal signs. Absent: tenderness - Extremities Exam Extremities exam: Absent: pedal edema - Neurological Exam Neurological exam: Present: alert, oriented X3, no focal deficits. Absent: pronater drift, facial droop, speech deficit - Skin Skin exam: Present: dry Internal Medicine: Result - Labs CBC & Chem 7: 10/20/16 03:23 10/20/16 03:23 - ABG Interpretation ABG results: PT/INR, D-dimer PT 13.1 Seconds (9.4-12.1) H 10/19/16 04:24 Consult Discharge Plan - Plan Referrals: Aide Foss DO [Primary Care Provider] - 10/26/16 1:45 pm ()
[2016-10-20] MEDS: Ondansetron 4 MG/2 ML VIAL IVP PRN (20:30)
[2016-10-20] MEDS: Nystatin POWDER 30 GM BOTTLE TP SCH (21:55)
[2016-10-21] MEDS: *HR* Heparin 5,000 UNIT/ML VIAL SQ SCH ×3 (00:55→15:44)
[2016-10-21] MEDS: *HR* HYDROmorphone (PF) 1 MG/ML SYRINGE IVP PRN ×4 (00:58→23:39)
[2016-10-21] MEDS: Ipratropium/Albuterol Neb 3 ML IH SCH ×4 (04:01→23:51)
[2016-10-21] MEDS: 0.9 % Sodium Chloride 1,000 ML IVC SCH ×2 (04:22→13:40)
[2016-10-21 04:54] LABS: Basophils % 0.7 %; Eosinophils # 0.2 K/mcL (0.0-0.6); Eosinophils % 3.7 %; Hematocrit 26.9 % (35.3-44.9); Hemoglobin 8.2 g/dL (11.5-15.4); Immature Granulocytes % 0.2 % (0-4); Lymphocytes # 0.6 K/mcL (0.6-4.6); Lymphocytes % 13.6 %; Mean Corpuscular HGB Conc 30.5 g/dL (31.6-35.5); Mean Corpuscular Hemoglobin 27.2 pg (28.0-33.3); Mean Corpuscular Volume 89.1 fL (83.0-100.0); Monocytes # 0.2 K/mcL (0.0-1.3); Monocytes % 5.5 %; Neutrophils # 3.3 K/mcL (1.6-8.9); Platelet Count 138 K/mcL (140-400); Red Blood Count 3.02 M/mcL (3.82-4.97); Red Cell Distribution Width 15.7 % (11.5-14.5); Segmented Neutrophils % 76.3 %
[2016-10-21 05:13] LABS: Magnesium 1.9 mg/dL (1.6-2.6); Potassium 2.7 mEq/L (3.5-4.5)
[2016-10-21] MEDS ORDERED: 0.9 % Sodium Chloride 500 ML IVC ONE (07:37)
[2016-10-21] MEDS: Insulin LISPRO 300 UNITS/3 ML VIAL SQ SCH ×3 (07:49→17:06)
[2016-10-21] MEDS: Loratadine 10 MG TABLET PO SCH (08:09)
[2016-10-21] MEDS: Gabapentin 300 MG CAPSULE PO SCH ×2 (08:09→20:34)
[2016-10-21] MEDS: Magnesium Oxide 400 MG TABLET PO SCH ×2 (08:10→20:34)
[2016-10-21] MEDS: Insulin DETEMIR 100 UNIT/ML X5UNITS SQ SCH ×2 (08:29→20:35)
[2016-10-21] MEDS: Nystatin POWDER 30 GM BOTTLE TP SCH ×2 (08:31→20:45)
[2016-10-21] MEDS: Ondansetron 4 MG/2 ML VIAL IVP PRN ×2 (09:28→15:45)
[2016-10-21] MEDS: Budesonide/Formoterol 160/4.5 MDI IH SCH ×2 (11:41→23:51)
--- NOTE | 2016-10-21 13:42 | Event Note ---
Date of Encounter: 10/21/16 Time of Encounter: 13:40 Patient is refusing EGD at this time. Surgery will sign off. We are available if there are any further questions/concerns. Recommend follow-up with Gastroenterology.
--- NOTE | 2016-10-21 15:36 | Internal Med Progress Note ---
Date of Encounter: 10/21/16 Time of Encounter: 12:20 - Assessment and plan (1) Hypokalemia Current Visit: Yes Status: Acute Assessment and plan: Replaced, Magnessium now WNL, continue to monitor (2) Acute exacerbation of COPD with asthma Current Visit: Yes Status: Acute Assessment and plan: Continue current therapy (3) Acute kidney injury superimposed on chronic kidney disease Current Visit: Yes Status: Acute Assessment and plan: Improving Discontinue IVF,m encourage oral intake (4) Intractable cyclical vomiting with nausea Current Visit: Yes Status: Chronic Assessment and plan: Chronic, improving GI review appreciated NO intervention for now (5) Diastolic CHF Current Visit: Yes Status: Chronic Assessment and plan: Not in exacerbation Will continue to monitor closely Qualifiers: Congestive heart failure chronicity: chronic Qualified Code(s): I50.32 - Chronic diastolic (congestive) heart failure (6) Chronic anemia Current Visit: Yes Status: Chronic (7) DMII (diabetes mellitus, type 2) Current Visit: Yes Status: Chronic Assessment and plan: SQ insulin, basal and prandial, monitor FS Qualifiers: Diabetes mellitus complication status: with unspecified complications Diabetes mellitus fpc insulin use: unspecified fpc insulin use status Qualified Code(s): E11.8 - Type 2 diabetes mellitus with unspecified complications (8) HLD (hyperlipidemia) Current Visit: Yes Status: Chronic Qualifiers: Hyperlipidemia type: mixed hyperlipidemia Qualified Code(s): E78.2 - Mixed hyperlipidemia (9) HTN (hypertension) Current Visit: Yes Status: Chronic Assessment and plan: Meds held due to low BP Qualifiers: Hypertension type: unspecified secondary hypertension Qualified Code(s): I15.9 - Secondary hypertension, unspecified; I15 - Secondary hypertension (10) Hypothyroid Current Visit: Yes Status: Chronic Qualifiers: Hypothyroidism type: acquired Qualified Code(s): E03.9 - Hypothyroidism, unspecified (11) Morbid obesity with BMI of 70 and over, adult Current Visit: Yes Status: Chronic (12) VONDA (obstructive sleep apnea) Current Visit: Yes Status: Chronic Assessment and plan: BIPAP RTC (13) Obesity hypoventilation syndrome Current Visit: Yes Status: Chronic - Subjective Interval history: 51 Y/O F with PMH of Morbid Obesity, discharged 06/2016 to home hospice Being managed in this admission for acute on chronic respiratory failure and CHRISTO She has been noted to have lost >100 pounds unintentionally and reports not being able to tolerate orally She is seen today at bedside, tolerating orally , with no new complains Patient was seen by Surgery (on behalf of GI) yesterday and she had refused EGD. She maintains her stance today Her CHRISTO is improving and she is beginning to tolerate orally She has many electrolyte abnormalities today which I plan to replace Patient will be discharged home a.m if her multiple electrolyte derangements and CHRISTO continue to improve She had revoked her home hospice status and as per palliative care here, she is no longer a candidate - Constitutional Vitals: Temp Pulse Resp BP Pulse Ox 97.8 F 76 18 117/64 98 10/21/16 11:37 10/21/16 11:37 10/21/16 11:41 10/21/16 11:37 10/21/16 11:41 General appearance: Present: A&O X 3, morbidly obese, no acute distress, answers questions appropriately - Head Head exam: Present: atraumatic, normocephalic - Eye Eye exam: Present: PERRL, conjuntiva pink, sclera anicteric Pupils: Present: PERRL - Neck Neck exam general surgery: Present: supple, trachea midline. Absent: lymphadenopathy - Respiratory Respiratory exam: Present: CTAB - Cardiovascular Cardiovascular exam: Present: RRR, +S1, +S2. Absent: diastolic murmur, gallop, rubs, systolic murmur - GI/Abdominal GI/Abdominal exam: Present: normal bowel sounds, soft, no peritoneal signs. Absent: distended, tenderness - Extremities Exam Extremities exam: Present: warm, radial pulses palpable and symetrical. Absent : calf tenderness, cyanotic, pedal edema - Neurological Exam Neurological exam: Present: CN II-XII intact, oriented X3, no focal deficits. Absent: pronater drift, facial droop, speech deficit - Skin Skin exam: Present: dry, intact Internal Medicine: Result - Labs CBC & Chem 7: 10/21/16 04:21 10/21/16 04:21 Labs: Short CBC 10/21/16 Range/Units 04:21 WBC 4.4 (4.3-11.1) K/mcL Hgb 8.2 L D (11.5-15.4) g/dL Hct 26.9 L (35.3-44.9) % Plt Count 138 L (140-400) K/mcL Neutrophils # 3.3 (1.6-8.9) K/mcL BMP 10/21/16 04:21 Sodium 139 Potassium 2.7 L Chloride 99 Carbon Dioxide 32 H BUN 29 H Creatinine 1.68 H Glucose 108 H Calcium 8.0 L - ABG Interpretation ABG results: PT/INR, D-dimer PT 13.1 Seconds (9.4-12.1) H 10/19/16 04:24 Consult Discharge Plan - Plan Referrals: Aide Foss DO [Primary Care Provider] - 10/26/16 1:45 pm ()
[2016-10-21] MEDS: Acetaminophen 325 MG TABLET PO PRN (20:33)
[2016-10-22] MEDS: *HR* Heparin 5,000 UNIT/ML VIAL SQ SCH ×3 (00:35→15:07)
[2016-10-22] MEDS: Ipratropium/Albuterol Neb 3 ML IH SCH ×4 (03:34→22:50)
[2016-10-22] MEDS: Ondansetron 4 MG/2 ML VIAL IVP PRN ×3 (04:02→21:12)
[2016-10-22 04:27] LABS: Basophils % 1.2 %; Eosinophils # 0.2 K/mcL (0.0-0.6); Eosinophils % 4.7 %; Hematocrit 26.6 % (35.3-44.9); Hemoglobin 8.3 g/dL (11.5-15.4); Immature Granulocytes % 0.3 % (0-4); Lymphocytes # 0.7 K/mcL (0.6-4.6); Lymphocytes % 19.5 %; Mean Corpuscular HGB Conc 31.2 g/dL (31.6-35.5); Mean Corpuscular Hemoglobin 27.8 pg (28.0-33.3); Mean Platelet Volume 9.2 fL (9.4-12.4); Monocytes # 0.2 K/mcL (0.0-1.3); Monocytes % 5.9 %; Neutrophils # 2.3 K/mcL (1.6-8.9); Platelet Count 135 K/mcL (140-400); Red Blood Count 2.99 M/mcL (3.82-4.97); Red Cell Distribution Width 15.9 % (11.5-14.5); Segmented Neutrophils % 68.4 %
[2016-10-22 04:38] LABS: Calcium 8.2 mg/dL (8.6-10.8); Phosphorous 1.9 mg/dL (2.3-4.7); Potassium 3.3 mEq/L (3.5-4.5)
[2016-10-22] MEDS: *HR* HYDROmorphone (PF) 1 MG/ML SYRINGE IVP PRN ×3 (07:53→21:12)
[2016-10-22] MEDS: Nystatin POWDER 30 GM BOTTLE TP SCH ×2 (07:54→21:30)
[2016-10-22] MEDS: Gabapentin 300 MG CAPSULE PO SCH ×2 (07:54→22:44)
[2016-10-22] MEDS: Loratadine 10 MG TABLET PO SCH (07:54)
[2016-10-22] MEDS: Insulin LISPRO 300 UNITS/3 ML VIAL SQ SCH ×3 (07:54→17:24)
[2016-10-22] MEDS: Magnesium Oxide 400 MG TABLET PO SCH ×2 (07:54→22:44)
--- NOTE | 2016-10-22 10:12 | General Surgery Progress Note ---
Date of Encounter: 10/22/16 Time of Encounter: 10:10 - Assessment and Plan (1) Intractable cyclical vomiting with nausea Current Visit: Yes Status: Chronic Patient refused EGD due to the risks of sedation/intubation Proceed with UGI evaluation (2) Chronic anemia Current Visit: Yes Status: Chronic Stable Management per medicine service (3) Acute kidney injury superimposed on chronic kidney disease Current Visit: Yes Status: Acute Improving-- 2.26>1.68>1.43 Continue to monitor labs Management per medicine service (4) DMII (diabetes mellitus, type 2) Current Visit: Yes Status: Chronic Management per medicine service Qualifiers: Diabetes mellitus complication status: with unspecified complications Diabetes mellitus retirement insulin use: unspecified retirement insulin use status Qualified Code(s): E11.8 - Type 2 diabetes mellitus with unspecified complications (5) VONDA (obstructive sleep apnea) Current Visit: Yes Status: Chronic On bipap as needed while sleeping and as needed (6) Obesity hypoventilation syndrome Current Visit: Yes Status: Chronic On bipap while sleeping and as needed (7) Morbid obesity Current Visit: No Status: Chronic Qualifiers: Obesity type: due to excess calories Qualified Code(s): E66.01 - Morbid ( severe) obesity due to excess calories Subjective Patient reports: no new complaints, afebrile (Patient refused EGD due to the risk of sedation and intubation; she requested a less invasive work-up if possible) Objective Vital Signs - Last 8 Hours Temp Pulse Resp BP Pulse Ox 10/22/16 07:37 97.5 F L 74 18 103/58 96 10/22/16 04:22 98.5 F 74 14 107/57 97 10/22/16 03:35 18 92/56 99 Intake and Output 10/21/16 10/22/16 10/22/16 23:59 07:59 15:59 Intake Total 120 / 120 0 / 0 Output Total 1200 / 1200 0 / 0 Balance 120 / 120 -1200 / -1200 0 / 0 Intake: Oral 120 / 120 0 / 0 Output: Urine 0 / 0 Catheter 1200 / 1200 Other: Meal Lunch NPO Percent of Meal Consumed 20% 0% Weight 170.1 kg Blood Glucose* 267 166 Patient Weight 10/22/16 23:59 Weight 170.1 kg - General physical appearance no distress, chronically ill, obese, other (resting comfortably on bipap) - Eyes normal ocular movement - ENT dry mucosa, atraumatic, normocephalic - Neck Neck exam: trachea midline - Respiratory clear to auscultation, other (resting on bipap) - Cardiovascular Cardiovascular exam: Present: RRR - Abdomen Abdomen: Present: bowel sounds present, soft, non tender - Genitourinary other ([place] catheter to SD) - Neurologic CN 2-12 grossly intact - Musculoskeletal other (severe deconditioning) - Psychiatric oriented to time, oriented to person, oriented to place, speech is normal, memory intact - Labs 10/22/16 04:10 10/22/16 04:10 Diabetes panel 10/22/16 Range/Units 04:10 Sodium 137 (136-145) mEq/L Potassium 3.3 L (3.5-4.5) mEq/L Chloride 99 (98-109) mEq/L Carbon Dioxide 29 (19-29) mEq/L BUN 22 H (7-20) mg/dL Creatinine 1.43 H (0.57-1.11) mg/dL Glucose 192 H (70-99) mg/dL Calcium 8.2 L (8.6-10.8) mg/dL Calcium panel 10/22/16 Range/Units 04:10 Calcium 8.2 L (8.6-10.8) mg/dL Phosphorus 1.9 L (2.3-4.7) mg/dL Pituitary panel 10/22/16 Range/Units 04:10 Sodium 137 (136-145) mEq/L Potassium 3.3 L (3.5-4.5) mEq/L Chloride 99 (98-109) mEq/L Carbon Dioxide 29 (19-29) mEq/L BUN 22 H (7-20) mg/dL Creatinine 1.43 H (0.57-1.11) mg/dL Glucose 192 H (70-99) mg/dL Calcium 8.2 L (8.6-10.8) mg/dL Adrenal panel 10/22/16 Range/Units 04:10 Sodium 137 (136-145) mEq/L Potassium 3.3 L (3.5-4.5) mEq/L Chloride 99 (98-109) mEq/L Carbon Dioxide 29 (19-29) mEq/L BUN 22 H (7-20) mg/dL Creatinine 1.43 H (0.57-1.11) mg/dL Glucose 192 H (70-99) mg/dL Calcium 8.2 L (8.6-10.8) mg/dL Consult Discharge Plan - Plan Referrals: Aide Foss DO [Primary Care Provider] - 10/26/16 1:45 pm () - Attending Attestation I examined this patient and my medical decision-making was reviewed with the JAVA SCALA DEVELOPER/PA/Advanced Practice Nurse/Resident Physician. I agree with the documented findings, disposition and treatment plan as described except to the extent set forth below.
[2016-10-22] MEDS: Budesonide/Formoterol 160/4.5 MDI IH SCH ×2 (10:58→22:51)
[2016-10-22] MEDS: Acetaminophen 325 MG TABLET PO PRN (15:07)
--- NOTE | 2016-10-22 16:36 | Internal Med Progress Note ---
Date of Encounter: 10/22/16 Time of Encounter: 10:00 - Assessment and plan (1) Hypokalemia Current Visit: Yes Status: Acute Assessment and plan: Replaced, Magnessium now WNL, continue to monitor (2) Acute exacerbation of COPD with asthma Current Visit: Yes Status: Acute Assessment and plan: Significantly improved (3) Acute kidney injury superimposed on chronic kidney disease Current Visit: Yes Status: Acute Assessment and plan: Improving Creatinine is back to baseline (4) Intractable cyclical vomiting with nausea Current Visit: Yes Status: Chronic Assessment and plan: Barium studies noted for possible esophageal dysmotility and generally poor stdy due to patient's inabiity to stand and she vomitted barium, endoscopy was recommended Awaiting Follow up by surgery (5) Diastolic CHF Current Visit: Yes Status: Chronic Assessment and plan: Not in exacerbation Will continue to monitor closely Qualifiers: Congestive heart failure chronicity: chronic Qualified Code(s): I50.32 - Chronic diastolic (congestive) heart failure (6) Chronic anemia Current Visit: Yes Status: Chronic (7) DMII (diabetes mellitus, type 2) Current Visit: Yes Status: Chronic Assessment and plan: SQ insulin, basal and prandial, monitor FS Qualifiers: Diabetes mellitus complication status: with unspecified complications Diabetes mellitus emt intermediate insulin use: unspecified emt intermediate insulin use status Qualified Code(s): E11.8 - Type 2 diabetes mellitus with unspecified complications (8) HLD (hyperlipidemia) Current Visit: Yes Status: Chronic Qualifiers: Hyperlipidemia type: mixed hyperlipidemia Qualified Code(s): E78.2 - Mixed hyperlipidemia (9) HTN (hypertension) Current Visit: Yes Status: Chronic Assessment and plan: Meds held due to low BP Qualifiers: Hypertension type: unspecified secondary hypertension Qualified Code(s): I15.9 - Secondary hypertension, unspecified; I15 - Secondary hypertension (10) Hypothyroid Current Visit: Yes Status: Chronic Qualifiers: Hypothyroidism type: acquired Qualified Code(s): E03.9 - Hypothyroidism, unspecified (11) Morbid obesity with BMI of 70 and over, adult Current Visit: Yes Status: Chronic (12) VONDA (obstructive sleep apnea) Current Visit: Yes Status: Chronic Assessment and plan: BIPAP RTC (13) Obesity hypoventilation syndrome Current Visit: Yes Status: Chronic - Subjective Interval history: 51 Y/O F with PMH of Morbid Obesity, discharged 06/2016 to home hospice Being managed in this admission for acute on chronic respiratory failure and CHRISTO She has been noted to have lost >100 pounds unintentionally and reports not being able to tolerate orally She is seen today, no new complains, awaiting upper GI series study as she had refused EGD - Constitutional Vitals: Temp Pulse Resp BP Pulse Ox 98.4 F 80 12 102/59 100 10/22/16 15:53 10/22/16 15:53 10/22/16 15:58 10/22/16 15:53 10/22/16 15:58 General appearance: Present: A&O X 3, morbidly obese, no acute distress, answers questions appropriately - Head Head exam: Present: atraumatic, normocephalic - Eye Eye exam: Present: PERRL, conjuntiva pink, sclera anicteric Pupils: Present: PERRL - Neck Neck exam general surgery: Present: supple, trachea midline. Absent: lymphadenopathy - Respiratory Respiratory exam: Present: CTAB. Absent: accessory muscle use, rales, rhonchi, wheezes Additional comments: Distant breath sounds due to body habitus NO wheezing or rhonchi - Cardiovascular Cardiovascular exam: Present: RRR, +S1, +S2, systolic murmur. Absent: diastolic murmur, gallop, rubs - GI/Abdominal GI/Abdominal exam: Present: normal bowel sounds, soft, no peritoneal signs. Absent: distended, tenderness - Extremities Exam Extremities exam: Present: warm, radial pulses palpable and symetrical. Absent : calf tenderness, cyanotic, pedal edema - Neurological Exam Neurological exam: Present: CN II-XII intact, oriented X3, no focal deficits. Absent: pronater drift, facial droop, speech deficit - Skin Skin exam: Present: dry Internal Medicine: Result - Labs CBC & Chem 7: 10/22/16 04:10 10/22/16 04:10 Labs: Short CBC 10/22/16 Range/Units 04:10 WBC 3.4 L (4.3-11.1) K/mcL Hgb 8.3 L (11.5-15.4) g/dL Hct 26.6 L (35.3-44.9) % Plt Count 135 L (140-400) K/mcL Neutrophils # 2.3 (1.6-8.9) K/mcL BMP 10/22/16 04:10 Sodium 137 Potassium 3.3 L Chloride 99 Carbon Dioxide 29 BUN 22 H Creatinine 1.43 H Glucose 192 H Calcium 8.2 L - ABG Interpretation ABG results: PT/INR, D-dimer PT 13.1 Seconds (9.4-12.1) H 10/19/16 04:24 - Impressions Impressions Upper GI Series 10/22/16 14:54 IMPRESSION: Limited examination due to the patient's inability to stand and move on the table. There was evidence of gastroesophageal reflux and the esophagus did not completely empty suggesting some dysmotility or dysfunction. No obvious mass or stenosis. Limited evaluation of the stomach. The patient vomited contrast, and the study was then terminated. Endoscopy could better evaluate if indicated. D/ / 10/22/2016 16:02:29 Edith Rodriguez MD / bcarter Interpreting Provider: Edith Rodriguez MD Consult Discharge Plan - Plan Referrals: Aide Foss DO [Primary Care Provider] - 10/26/16 1:45 pm ()
[2016-10-22] MEDS: Insulin DETEMIR 100 UNIT/ML X5UNITS SQ SCH (22:45)
[2016-10-23] MEDS: *HR* Heparin 5,000 UNIT/ML VIAL SQ SCH ×3 (00:28→16:59)
[2016-10-23] MEDS: Ipratropium/Albuterol Neb 3 ML IH SCH ×4 (04:19→21:44)
[2016-10-23] MEDS: *HR* HYDROmorphone (PF) 1 MG/ML SYRINGE IVP PRN (07:50)
[2016-10-23] MEDS: Ondansetron 4 MG/2 ML VIAL IVP PRN ×2 (07:50→17:00)
[2016-10-23] MEDS: Insulin LISPRO 300 UNITS/3 ML VIAL SQ SCH ×3 (08:00→17:00)
[2016-10-23] MEDS: Magnesium Oxide 400 MG TABLET PO SCH ×2 (08:01→21:14)
[2016-10-23] MEDS: Gabapentin 300 MG CAPSULE PO SCH ×2 (08:01→21:22)
[2016-10-23] MEDS: Loratadine 10 MG TABLET PO SCH (08:01)
[2016-10-23] MEDS: Nystatin POWDER 30 GM BOTTLE TP SCH ×2 (08:03→21:22)
[2016-10-23 09:13] LABS: Calcium 8.7 mg/dL (8.6-10.8); Potassium 3.8 mEq/L (3.5-4.5)
[2016-10-23] MEDS: Budesonide/Formoterol 160/4.5 MDI IH SCH ×2 (11:03→22:40)
--- NOTE | 2016-10-23 14:43 | General Surgery Progress Note ---
Addendum entered and electronically signed by Albina Lawson DO 14:50: Subjective: Patient resting comfortably in bed on BiPAP. No complaints at this time. Objective: Gen: No distress, morbidly obese, on BiPAP Eyes: PERRL, normal ocular movements ENT: On BiPAP support Neck: Trachea midline Respiratory: Clear to auscultation bilaterally Integumentary: No rash Neurologic: CN 2-12 grossly intact Original Note: <Albina Lawson - Last Filed: 10/23/16 14:41> Date of Encounter: 10/23/16 Time of Encounter: 14:41 - Assessment and Plan (1) Intractable cyclical vomiting with nausea Current Visit: Yes Status: Chronic Upper GI results: Limited examination due to patient inability to stand and move on the table. There was evidence of gastroesophageal reflux and the esophagus did not completely empty suggesting some dysmotility or dysfunction. No obvious mass or stenosis. Limited evaluation of the stomach. The patient vomited contrast, and the study was then terminated. Endoscopy could better evaluate if indicated. Patient still refusing EGD due to the risks of sedation/intubation. Surgery will sign off at this time, thank you for involving us in this patient s care, please feel free to contact us with any questions. (2) Acute kidney injury superimposed on chronic kidney disease Current Visit: Yes Status: Acute Improving-- 2.26>1.68>1.43>1.25 Management per medicine service (3) Chronic anemia Current Visit: Yes Status: Chronic Stable Management per medicine service (4) DMII (diabetes mellitus, type 2) Current Visit: Yes Status: Chronic Management per medicine service Qualifiers: Diabetes mellitus complication status: with unspecified complications Diabetes mellitus porcelain enamel sprayer insulin use: unspecified porcelain enamel sprayer insulin use status Qualified Code(s): E11.8 - Type 2 diabetes mellitus with unspecified complications (5) VONDA (obstructive sleep apnea) Current Visit: Yes Status: Chronic On bipap while sleeping and as needed (6) Obesity hypoventilation syndrome Current Visit: Yes Status: Chronic On bipap while sleeping and as needed Objective Vital Signs - Last 8 Hours Temp Pulse Resp BP Pulse Ox 10/23/16 14:16 82/56 10/23/16 12:09 84 84/50 10/23/16 11:56 97.7 F 85 16 84/43 97 12/31/16 08:16 100 10/23/16 07:23 97.9 F 69 18 108/67 100 Intake and Output 10/22/16 10/23/16 10/23/16 23:59 07:59 15:59 Intake Total 0 / 0 0 / 0 60 / 60 Output Total 0 / 0 Balance 0 / 0 0 / 0 60 / 60 Intake: Oral 0 / 0 0 / 0 60 / 60 Output: Catheter 0 / 0 Other: Meal Breakfast Percent of Meal Consumed 5% Weight 171.2 kg Blood Glucose* 179 162 155 Patient Weight 10/23/16 23:59 Weight 171.2 kg - Labs 10/22/16 04:10 10/23/16 07:50 Diabetes panel 10/23/16 Range/Units 07:50 Sodium 139 (136-145) mEq/L Potassium 3.8 (3.5-4.5) mEq/L Chloride 101 (98-109) mEq/L Carbon Dioxide 31 H (19-29) mEq/L BUN 20 (7-20) mg/dL Creatinine 1.25 H (0.57-1.11) mg/dL Glucose 173 H (70-99) mg/dL Calcium 8.7 (8.6-10.8) mg/dL Calcium panel 10/23/16 Range/Units 07:50 Calcium 8.7 (8.6-10.8) mg/dL Pituitary panel 10/23/16 Range/Units 07:50 Sodium 139 (136-145) mEq/L Potassium 3.8 (3.5-4.5) mEq/L Chloride 101 (98-109) mEq/L Carbon Dioxide 31 H (19-29) mEq/L BUN 20 (7-20) mg/dL Creatinine 1.25 H (0.57-1.11) mg/dL Glucose 173 H (70-99) mg/dL Calcium 8.7 (8.6-10.8) mg/dL Adrenal panel 10/23/16 Range/Units 07:50 Sodium 139 (136-145) mEq/L Potassium 3.8 (3.5-4.5) mEq/L Chloride 101 (98-109) mEq/L Carbon Dioxide 31 H (19-29) mEq/L BUN 20 (7-20) mg/dL Creatinine 1.25 H (0.57-1.11) mg/dL Glucose 173 H (70-99) mg/dL Calcium 8.7 (8.6-10.8) mg/dL Consult Discharge Plan - Plan Referrals: Aide Foss DO [Primary Care Provider] - 10/26/16 1:45 pm () <Negrita Moreno - Last Filed: 10/23/16 15:01> Date of Encounter: 10/23/16 - Assessment and Plan (1) Acute exacerbation of COPD with asthma Current Visit: Yes Status: Acute (2) Nausea and vomiting Current Visit: Yes Status: Acute recommend zofran/phenegran may need scopalamine patch Qualifiers: Vomiting type: cyclical vomiting Vomiting Intractability: intractable Qualified Code(s): G43.A1 - Cyclical vomiting, intractable (3) Intractable cyclical vomiting with nausea Current Visit: Yes Status: Chronic discussed with patient her UGI results, discussed EGD and she refuses at this time. Will sign off. Subjective Patient reports: no new complaints Objective Vital Signs - Last 8 Hours Temp Pulse Resp BP Pulse Ox 10/23/16 14:16 82/56 10/23/16 12:09 84 84/50 10/23/16 11:56 97.7 F 85 16 84/43 97 10/23/16 08:16 100 10/23/16 07:23 97.9 F 69 18 108/67 100 Intake and Output 10/22/16 10/23/16 10/23/16 23:59 07:59 15:59 Intake Total 0 / 0 0 / 0 60 / 60 Output Total 0 / 0 Balance 0 / 0 0 / 0 60 / 60 Intake: Oral 0 / 0 0 / 0 60 / 60 Output: Catheter 0 / 0 Other: Meal Breakfast Percent of Meal Consumed 5% Weight 171.2 kg Blood Glucose* 179 162 155 Patient Weight 10/23/16 23:59 Weight 171.2 kg - General physical appearance no distress, no pain, obese - Eyes PERRL, normal ocular movement - ENT dry mucosa, atraumatic - Neurologic CN 2-12 grossly intact - Psychiatric oriented to time, oriented to person, memory intact - Labs 10/22/16 04:10 10/23/16 07:50 Diabetes panel 10/23/16 Range/Units 07:50 Sodium 139 (136-145) mEq/L Potassium 3.8 (3.5-4.5) mEq/L Chloride 101 (98-109) mEq/L Carbon Dioxide 31 H (19-29) mEq/L BUN 20 (7-20) mg/dL Creatinine 1.25 H (0.57-1.11) mg/dL Glucose 173 H (70-99) mg/dL Calcium 8.7 (8.6-10.8) mg/dL Calcium panel 10/23/16 Range/Units 07:50 Calcium 8.7 (8.6-10.8) mg/dL Pituitary panel 10/23/16 Range/Units 07:50 Sodium 139 (136-145) mEq/L Potassium 3.8 (3.5-4.5) mEq/L Chloride 101 (98-109) mEq/L Carbon Dioxide 31 H (19-29) mEq/L BUN 20 (7-20) mg/dL Creatinine 1.25 H (0.57-1.11) mg/dL Glucose 173 H (70-99) mg/dL Calcium 8.7 (8.6-10.8) mg/dL Adrenal panel 10/23/16 Range/Units 07:50 Sodium 139 (136-145) mEq/L Potassium 3.8 (3.5-4.5) mEq/L Chloride 101 (98-109) mEq/L Carbon Dioxide 31 H (19-29) mEq/L BUN 20 (7-20) mg/dL Creatinine 1.25 H (0.57-1.11) mg/dL Glucose 173 H (70-99) mg/dL Calcium 8.7 (8.6-10.8) mg/dL - Imaging Additional Studies: UGI results discussed with patient - Attending Attestation I examined this patient and my medical decision-making was reviewed with the SAFETY ADVISOR/PA/Advanced Practice Nurse/Resident Physician. I agree with the documented findings, disposition and treatment plan as described except to the extent set forth below.
--- NOTE | 2016-10-23 14:45 | Internal Med Progress Note ---
Date of Encounter: 10/23/16 Time of Encounter: 10:55 - Assessment and plan (1) Hypokalemia Current Visit: Yes Status: Acute Assessment and plan: Resolved (2) Acute exacerbation of COPD with asthma Current Visit: Yes Status: Acute Assessment and plan: Significantly improved (3) Acute kidney injury superimposed on chronic kidney disease Current Visit: Yes Status: Acute Assessment and plan: Resolved. Creatinine has been stable at baseline (4) Intractable cyclical vomiting with nausea Current Visit: Yes Status: Chronic Assessment and plan: Surgery has verbally signed off due to patient refused offered diagnostic EGD Will continue supportive care with Zofran pre-meal Patient is scheduled for d/c to home hospice, however, D[facility]WBEN[facility] OPERATOR may not be able to admit patient to hospice till Tuesday Will keep patient in-patient till then due to necessity for IV medications which family may not be able to help administer (5) Diastolic CHF Current Visit: Yes Status: Chronic Assessment and plan: Not in exacerbation Will continue to monitor closely Qualifiers: Qualified Code(s): I50.32 - Chronic diastolic (congestive) heart failure (6) Chronic anemia Current Visit: Yes Status: Chronic (7) DMII (diabetes mellitus, type 2) Current Visit: Yes Status: Chronic Assessment and plan: SQ insulin, basal and prandial, monitor FS Qualifiers: Qualified Code(s): E11.8 - Type 2 diabetes mellitus with unspecified complications (8) HLD (hyperlipidemia) Current Visit: Yes Status: Chronic Qualifiers: Qualified Code(s): E78.2 - Mixed hyperlipidemia (9) HTN (hypertension) Current Visit: Yes Status: Chronic Assessment and plan: Meds held due to low BP Patient's BP running low with MAP 65. Will give gentle boluses if MAP <65 Continue to monitor closely Qualifiers: Qualified Code(s): I15.9 - Secondary hypertension, unspecified; I15 - Secondary hypertension (10) Hypothyroid Current Visit: Yes Status: Chronic Qualifiers: Qualified Code(s): E03.9 - Hypothyroidism, unspecified (11) Morbid obesity with BMI of 70 and over, adult Current Visit: Yes Status: Chronic (12) VONDA (obstructive sleep apnea) Current Visit: Yes Status: Chronic Assessment and plan: BIPAP RTC (13) Obesity hypoventilation syndrome Current Visit: Yes Status: Chronic - Subjective Interval history: 51 Y/O F with PMH of Morbid Obesity, discharged 06/2016 to home hospice Being managed in this admission for acute on chronic respiratory failure and CHRISTO She has been noted to have lost >100 pounds unintentionally and reports not being able to tolerate orally Barium studies revealed possible esophageal dysmotility, with recommendations for endoscopy However, patient had refused EGD offered by surgery Her main active problems this morning is persistent nausea and vomiting with low blood pressures Blood pressure has ranged from mid 80s systolic but MAP has been greater than and equal to 65 CHRISTO has resolved and her respiratory status is back to baseline Hypokalemia has improved - Constitutional Vitals: Temp Pulse Resp BP Pulse Ox 97.7 F 84 16 82/56 97 10/23/16 11:56 10/23/16 12:09 10/23/16 11:56 10/23/16 14:16 10/23/16 11:56 General appearance: Present: A&O X 3, morbidly obese, no acute distress, answers questions appropriately - Head Head exam: Present: atraumatic, normocephalic - Eye Eye exam: Present: PERRL, conjuntiva pink, sclera anicteric Pupils: Present: PERRL - Neck Neck exam general surgery: Present: supple, trachea midline. Absent: lymphadenopathy - Respiratory Respiratory exam: Present: CTAB. Absent: accessory muscle use (Distant breath sounds due to body habitus. ), rales, rhonchi, wheezes - Cardiovascular Cardiovascular exam: Present: RRR, +S1, +S2, systolic murmur. Absent: diastolic murmur, gallop, rubs - GI/Abdominal GI/Abdominal exam: Present: normal bowel sounds, soft, no peritoneal signs. Absent: distended, tenderness - Extremities Exam Extremities exam: Present: warm, radial pulses palpable and symetrical. Absent : calf tenderness, cyanotic, pedal edema - Neurological Exam Neurological exam: Present: CN II-XII intact, oriented X3, no focal deficits. Absent: pronater drift, facial droop, speech deficit - Skin Skin exam: Present: dry Internal Medicine: Result - Labs CBC & Chem 7: 10/22/16 04:10 10/23/16 07:50 Labs: BMP 10/23/16 07:50 Sodium 139 Potassium 3.8 Chloride 101 Carbon Dioxide 31 H BUN 20 Creatinine 1.25 H Glucose 173 H Calcium 8.7 - ABG Interpretation ABG results: PT/INR, D-dimer PT 13.1 Seconds (9.4-12.1) H 10/19/16 04:24 - Impressions Impressions Upper GI Series 10/22/16 14:54 IMPRESSION: Limited examination due to the patient's inability to stand and move on the table. There was evidence of gastroesophageal reflux and the esophagus did not completely empty suggesting some dysmotility or dysfunction. No obvious mass or stenosis. Limited evaluation of the stomach. The patient vomited contrast, and the study was then terminated. Endoscopy could better evaluate if indicated. D/ / 10/22/2016 16:02:29 Edith Rodriguez MD / art Interpreting Provider: Edith Rodriguez MD Consult Discharge Plan - Plan Referrals: Aide Foss DO [Primary Care Provider] - 10/26/16 1:45 pm ()
[2016-10-23] MEDS: Acetaminophen 325 MG TABLET PO PRN (21:14)
[2016-10-23] MEDS: Insulin DETEMIR 100 UNIT/ML X5UNITS SQ SCH (21:17)
[2016-10-24] MEDS: Ondansetron 4 MG/2 ML VIAL IVP PRN ×4 (01:17→21:32)
[2016-10-24] MEDS: *HR* HYDROmorphone (PF) 1 MG/ML SYRINGE IVP PRN ×4 (01:19→21:33)
[2016-10-24] MEDS: *HR* Heparin 5,000 UNIT/ML VIAL SQ SCH ×3 (01:25→17:57)
[2016-10-24] MEDS: Ipratropium/Albuterol Neb 3 ML IH SCH ×4 (03:58→22:09)
[2016-10-24 05:46] LABS: Calcium 8.7 mg/dL (8.6-10.8); Potassium 4.4 mEq/L (3.5-4.5)
[2016-10-24] MEDS: Acetaminophen 325 MG TABLET PO PRN (06:53)
[2016-10-24] MEDS: Magnesium Oxide 400 MG TABLET PO SCH ×2 (08:00→21:32)
[2016-10-24] MEDS: Loratadine 10 MG TABLET PO SCH (08:00)
[2016-10-24] MEDS: Nystatin POWDER 30 GM BOTTLE TP SCH ×2 (08:01→21:33)
[2016-10-24] MEDS: Gabapentin 300 MG CAPSULE PO SCH ×2 (08:01→21:33)
[2016-10-24] MEDS: Insulin LISPRO 300 UNITS/3 ML VIAL SQ SCH ×3 (08:02→17:57)
[2016-10-24] MEDS: Budesonide/Formoterol 160/4.5 MDI IH SCH ×2 (09:52→22:09)
--- NOTE | 2016-10-24 14:09 | Internal Med Progress Note ---
Date of Encounter: 10/24/16 Time of Encounter: 10:00 - Assessment and plan (1) Hypokalemia Current Visit: Yes Status: Resolved Assessment and plan: Resolved (2) Acute exacerbation of COPD with asthma Current Visit: Yes Status: Acute Assessment and plan: Significantly improved (3) Acute kidney injury superimposed on chronic kidney disease Current Visit: Yes Status: Resolved Assessment and plan: Resolved. Creatinine has been stable at baseline (4) Intractable cyclical vomiting with nausea Current Visit: Yes Status: Chronic Assessment and plan: Surgery has verbally signed off due to patient refused offered diagnostic EGD Will continue supportive care with Zofran pre-meal Patient is scheduled for d/c to home hospice, however, [facility] may not be able to admit patient to hospice till Tuesday Will keep patient in-patient till then due to necessity for IV medications which family may not be able to help administer (5) Diastolic CHF Current Visit: Yes Status: Chronic Assessment and plan: Not in exacerbation Will continue to monitor closely Qualifiers: Congestive heart failure chronicity: chronic Qualified Code(s): I50.32 - Chronic diastolic (congestive) heart failure (6) Chronic anemia Current Visit: Yes Status: Chronic (7) DMII (diabetes mellitus, type 2) Current Visit: Yes Status: Chronic Assessment and plan: SQ insulin, basal and prandial, monitor FS Qualifiers: Diabetes mellitus complication status: with unspecified complications Diabetes mellitus parts counterman insulin use: unspecified parts counterman insulin use status Qualified Code(s): E11.8 - Type 2 diabetes mellitus with unspecified complications (8) HLD (hyperlipidemia) Current Visit: Yes Status: Chronic Qualifiers: Hyperlipidemia type: mixed hyperlipidemia Qualified Code(s): E78.2 - Mixed hyperlipidemia (9) HTN (hypertension) Current Visit: Yes Status: Chronic Assessment and plan: Meds held due to low BP Patient's BP running low with MAP 65. Will give gentle boluses if MAP <65 Continue to monitor closely Qualifiers: Hypertension type: unspecified secondary hypertension Qualified Code(s): I15.9 - Secondary hypertension, unspecified; I15 - Secondary hypertension (10) Hypothyroid Current Visit: Yes Status: Chronic Qualifiers: Hypothyroidism type: acquired Qualified Code(s): E03.9 - Hypothyroidism, unspecified (11) Morbid obesity with BMI of 70 and over, adult Current Visit: Yes Status: Chronic (12) VONDA (obstructive sleep apnea) Current Visit: Yes Status: Chronic Assessment and plan: BIPAP RTC (13) Obesity hypoventilation syndrome Current Visit: Yes Status: Chronic - Subjective Interval history: 51 Y/O F with PMH of Morbid Obesity, discharged 06/2016 to home hospice Being managed in this admission for acute on chronic respiratory failure and CHRISTO She has been noted to have lost >100 pounds unintentionally and reports not being able to tolerate orally Barium studies revealed possible esophageal dysmotility, with recommendations for endoscopy However, patient had refused EGD offered by surgery Her main active problems this morning is persistent nausea and vomiting with low blood pressures CHRISTO has resolved and her respiratory status is back to baseline Hypokalemia has improved BP has remained low normal with MAP >65 - Constitutional Vitals: Temp Pulse Resp BP Pulse Ox 98 F 87 14 93/58 99 10/24/16 11:07 10/24/16 11:07 10/24/16 11:07 10/24/16 11:07 10/24/16 11:07 General appearance: Present: A&O X 3, morbidly obese, no acute distress, answers questions appropriately - Head Head exam: Present: atraumatic, normocephalic - Eye Eye exam: Present: PERRL, conjuntiva pink, sclera anicteric Pupils: Present: PERRL - Neck Neck exam general surgery: Present: supple, trachea midline. Absent: lymphadenopathy - Respiratory Respiratory exam: Present: CTAB. Absent: accessory muscle use, rales, rhonchi, wheezes - Cardiovascular Cardiovascular exam: Present: RRR, +S1, +S2. Absent: diastolic murmur, gallop, rubs, systolic murmur - GI/Abdominal GI/Abdominal exam: Present: normal bowel sounds, soft, no peritoneal signs. Absent: distended, tenderness - Extremities Exam Extremities exam: Present: warm, radial pulses palpable and symetrical. Absent : calf tenderness, cyanotic, pedal edema - Neurological Exam Neurological exam: Present: CN II-XII intact, oriented X3, no focal deficits. Absent: pronater drift, facial droop, speech deficit - Skin Skin exam: Present: dry Internal Medicine: Result - Labs CBC & Chem 7: 10/22/16 04:10 10/24/16 04:55 Labs: BMP 10/24/16 04:55 Sodium 139 Potassium 4.4 Chloride 104 Carbon Dioxide 29 BUN 18 Creatinine 1.22 H Glucose 151 H Calcium 8.7 - ABG Interpretation ABG results: PT/INR, D-dimer PT 13.1 Seconds (9.4-12.1) H 10/19/16 04:24 Consult Discharge Plan - Plan Referrals: Aide Foss DO [Primary Care Provider] - 10/26/16 1:45 pm ()
[2016-10-24] MEDS: Insulin DETEMIR 100 UNIT/ML X5UNITS SQ SCH (21:33)
[2016-10-25] MEDS: *HR* Heparin 5,000 UNIT/ML VIAL SQ SCH ×3 (00:55→15:09)
[2016-10-25] MEDS: Ipratropium/Albuterol Neb 3 ML IH SCH ×4 (04:25→22:16)
[2016-10-25] MEDS: Ondansetron 4 MG/2 ML VIAL IVP PRN ×3 (06:30→19:27)
[2016-10-25] MEDS: *HR* HYDROmorphone (PF) 1 MG/ML SYRINGE IVP PRN ×2 (06:31→19:59)
[2016-10-25 07:51] LABS: Calcium 8.6 mg/dL (8.6-10.8)
[2016-10-25 07:52] LABS: Potassium 5.2 mEq/L (3.5-4.5)
--- NOTE | 2016-10-25 09:02 | Physician Discharge Referral ---
Home Health/Hosp Referral Info Transfer to: Hospice (Home hospice) Provider in Charge Post Discharge: Lamps Tester And Inspector - Diagnosis (1) Hypokalemia Priority: Secondary Status: Resolved (2) Acute exacerbation of COPD with asthma Priority: Primary Status: Resolved (3) Acute kidney injury superimposed on chronic kidney disease Priority: Primary Status: Resolved (4) Intractable cyclical vomiting with nausea Priority: Secondary Status: Chronic (5) Diastolic CHF Priority: Secondary Status: Chronic (6) Chronic anemia Priority: Secondary Status: Chronic (7) DMII (diabetes mellitus, type 2) Priority: Secondary Status: Chronic (8) HLD (hyperlipidemia) Priority: Secondary Status: Chronic (9) HTN (hypertension) Priority: Secondary Status: Chronic (10) Hypothyroid Priority: Secondary Status: Chronic (11) Morbid obesity with BMI of 70 and over, adult Priority: Secondary Status: Chronic (12) VONDA (obstructive sleep apnea) Priority: Secondary Status: Chronic (13) Obesity hypoventilation syndrome Priority: Secondary Status: Chronic - Respiratory Orders Other (Continuous CPAP) Smoking Cessation: Smoking cessation has been advised. For more information, call the [place] Tobacco Quit Line at 9-042-ZMJO-NOW. - Diet/Nutrition Diet/Nutrition Orders: Mechanical Soft, Renal, Cardiac - Activity Activity Orders: Bedrest - Services Needed Following services are medically necessary services: Nursing - Transfer Medications Home Medications: Cetirizine HCl [Zyrtec] 10 mg PO DAILY 07/16/15 [History] Cholecalciferol (Vitamin D3) [Vitamin D3] 5,000 unit PO DAILY 07/16/15 [History] Ferrous Sulfate 325 mg PO TID 07/16/15 [History] Glimepiride [Amaryl] 1 mg PO BID 07/16/15 [History] Insulin Glargine,Hum.rec.anlog [Lantus Solostar] 67 unit SQ BID 07/16/15 [ History] Ondansetron [Zofran] 4 mg PO Q8H PRN 07/16/15 [History] Atorvastatin [Lipitor] 40 mg PO HS 02/13/16 [History] Guaifenesin [Mucinex] 600 mg PO Q12H 02/13/16 [History] Magnesium Oxide [Mag-Ox] 400 mg PO BID 02/13/16 [History] Oxybutynin [Ditropan] 2.5 mg PO BID 02/13/16 [History] Budesonide/Formoterol 160/4.5 [Symbicort 160/4.5] 2 puff IH BIDR #1 inhaler 04/08 [Rx] Capsaicin 0.025% [Trixaicin] 1 appl TP TID 05/30/16 [History] Clotrimazole/Betameth Dip CRM [Lotrisone CRM] 1 appl TP BID 05/30/16 [History] Gabapentin [Neurontin] 300 mg PO BID 05/30/16 [History] Insulin LISPRO [Humalog Kwikpen U-100] 30 unit SQ TIDWM 05/30/16 [History] LORazepam [Ativan] 1 mg PO BID PRN 05/30/16 [History] Levothyroxine [Synthroid] 175 mcg PO DAILY 05/30/16 [History] Omeprazole [PriLOSEC] 20 mg PO BIDAC 05/30/16 [History] Oxygen 3.5 l NS AD 05/30/16 [History] Saline Nasal [place] [[place] Nasal [place]] 1 - 2 spray NS Q4-6H PRN 05/30/16 [ History] Albuterol Sulfate [Albuterol Inhaler] 2 puff IH Q4HR PRN 30 Days 06/07/16 [Rx] LORazepam Oral Conc [Ativan Oral Conc] 1 mg PO Q6HR #30 mls 07/08/16 [Rx] OxyCODONE Immed Rel [Roxicodone 5 MG] 5 mg PO Q2H PRN #70 tab 07/08/16 [Rx] Cyanocobalamin (B-12) [Vitamin B12] 1,000 mcg PO DAILY 10/19/16 [History] Furosemide [Lasix] 80 mg PO BID 10/19/16 [History] Allergies/Adverse Reactions: Allergies aspartame Allergy (Verified 06/08/16 15:48) Hives ciprofloxacin [From Cipro] Allergy (Verified 06/08/16 15:48) Hives escitalopram [From Lexapro] Allergy (Verified 06/08/16 15:48) Hives morphine Allergy (Verified 06/08/16 15:48) Hives Penicillins Allergy (Verified 06/08/16 15:48) Hives prochlorperazine Allergy (Verified 06/08/16 15:48) Hives haloperidol [From Haldol] Adverse Reaction (Verified 10/19/16 05:29) Hallucinating Certification: Further, I certify that my clinical findings support that this patient is homebound (i.e. absences from home require considerable and taxing effort and are for medical reasons or cheondoism services or infrequently or short duration when for other reasons) because: Homebound Reason: Patient requires assistance of a person or device to safely leave home, Leaving home requires considerable and taxing effort due to condition, Severity of cardiac or pulmonary status limits activity tolerance Attestation: My signature below is to certify that this patient is under my care and that I, or nurse practitioner, or a physician's respiratory assistant working with me, has a face-to -face encounter with this patient.
--- NOTE | 2016-10-25 09:04 | Discharge Summary ---
Date of Encounter: 10/25/16 Time of Encounter: 09:03 - Discharge Diagnosis (1) Hypokalemia Priority: Primary Status: Resolved (2) Acute exacerbation of COPD with asthma Priority: Primary Status: Resolved (3) Acute kidney injury superimposed on chronic kidney disease Priority: Primary Status: Resolved (4) Intractable cyclical vomiting with nausea Priority: Secondary Status: Chronic (5) Diastolic CHF Priority: Secondary Status: Chronic Qualifiers: Congestive heart failure chronicity: chronic Qualified Code(s): I50.32 - Chronic diastolic (congestive) heart failure (6) Chronic anemia Priority: Secondary Status: Chronic (7) DMII (diabetes mellitus, type 2) Priority: Secondary Status: Chronic Qualifiers: Diabetes mellitus complication status: with unspecified complications Diabetes mellitus terminal operator insulin use: unspecified residential insulin use status Qualified Code(s): E11.8 - Type 2 diabetes mellitus with unspecified complications (8) HLD (hyperlipidemia) Priority: Secondary Status: Chronic Qualifiers: Hyperlipidemia type: mixed hyperlipidemia Qualified Code(s): E78.2 - Mixed hyperlipidemia (9) HTN (hypertension) Priority: Secondary Status: Chronic Qualifiers: Hypertension type: unspecified secondary hypertension Qualified Code(s): I15.9 - Secondary hypertension, unspecified; I15 - Secondary hypertension (10) Hypothyroid Priority: Secondary Status: Chronic Qualifiers: Hypothyroidism type: acquired Qualified Code(s): E03.9 - Hypothyroidism, unspecified (11) Morbid obesity with BMI of 70 and over, adult Priority: Secondary Status: Chronic (12) VONDA (obstructive sleep apnea) Priority: Secondary Status: Chronic (13) Obesity hypoventilation syndrome Priority: Secondary Status: Chronic - Discharge Medications Home Medications: Cetirizine HCl [Zyrtec] 10 mg PO DAILY 07/16/15 [History] Cholecalciferol (Vitamin D3) [Vitamin D3] 5,000 unit PO DAILY 07/16/15 [History] Ferrous Sulfate 325 mg PO TID 07/16/15 [History] Glimepiride [Amaryl] 1 mg PO BID 07/16/15 [History] Insulin Glargine,Hum.rec.anlog [Lantus Solostar] 67 unit SQ BID 07/16/15 [ History] Ondansetron [Zofran] 4 mg PO Q8H PRN 07/16/15 [History] Atorvastatin [Lipitor] 40 mg PO HS 04/22/16 [History] Guaifenesin [Mucinex] 600 mg PO Q12H 02/13/16 [History] Magnesium Oxide [Mag-Ox] 400 mg PO BID 02/13/16 [History] Oxybutynin [Ditropan] 2.5 mg PO BID 02/13/16 [History] Budesonide/Formoterol 160/4.5 [Symbicort 160/4.5] 2 puff IH BIDR #1 inhaler 04/08 [Rx] Capsaicin 0.025% [Trixaicin] 1 appl TP TID 05/30/16 [History] Clotrimazole/Betameth Dip CRM [Lotrisone CRM] 1 appl TP BID 05/30/16 [History] Gabapentin [Neurontin] 300 mg PO BID 05/30/16 [History] Insulin LISPRO [Humalog Kwikpen U-100] 30 unit SQ TIDWM 05/30/16 [History] LORazepam [Ativan] 1 mg PO BID PRN 05/30/16 [History] Levothyroxine [Synthroid] 175 mcg PO DAILY 05/30/16 [History] Omeprazole [PriLOSEC] 20 mg PO BIDAC 05/30/16 [History] Oxygen 3.5 l NS AD 05/30/16 [History] Saline Nasal [place] [[place] Nasal [place]] 1 - 2 spray NS Q4-6H PRN 05/30/16 [ History] Albuterol Sulfate [Albuterol Inhaler] 2 puff IH Q4HR PRN 30 Days 06/07/16 [Rx] LORazepam Oral Conc [Ativan Oral Conc] 1 mg PO Q6HR #30 mls 07/08/16 [Rx] OxyCODONE Immed Rel [Roxicodone 5 MG] 5 mg PO Q2H PRN #70 tab 07/08/16 [Rx] Cyanocobalamin (B-12) [Vitamin B12] 1,000 mcg PO DAILY 10/19/16 [History] Furosemide [Lasix] 80 mg PO BID 10/19/16 [History] Allergies/Adverse Reactions: Allergies aspartame Allergy (Verified 06/08/16 15:48) Hives ciprofloxacin [From Cipro] Allergy (Verified 06/08/16 15:48) Hives escitalopram [From Lexapro] Allergy (Verified 06/08/16 15:48) Hives morphine Allergy (Verified 06/08/16 15:48) Hives Penicillins Allergy (Verified 06/08/16 15:48) Hives prochlorperazine Allergy (Verified 06/08/16 15:48) Hives haloperidol [From Haldol] Adverse Reaction (Verified 10/19/16 05:29) Hallucinating Date of admission: 10/20/16 14:06 Primary care physician: Aide Foss DO Consults: 10/20/16 14:24 Consult to Surgery [CONS] Routine Consulting Provider: [facility] Reason for Consult: Persistent vomitting Call Completed: Yes Discharging clinician: Jensen Bangura Anticipated date of discharge: 10/25/16 - Patient Status Condition: Fair - Discharge Instructions Follow Up With: Aide Foss DO [Primary Care Provider] - 11/01/16 10:00 am () Hospital course: Ms. Pal is a 51 year old female - Time Spent with Patient Total time spent providing and/or coordinating discharge services: - Constitutional Vitals: Temp Pulse Resp BP Pulse Ox 97.4 F L 86 13 94/64 100 10/25/16 07:57 10/25/16 07:57 10/25/16 07:57 10/25/16 07:57 10/25/16 07:57 General appearance: Present: A&O X 3, morbidly obese, no acute distress, answers questions appropriately
[2016-10-25] MEDS: Gabapentin 300 MG CAPSULE PO SCH ×2 (09:27→19:58)
[2016-10-25] MEDS: Loratadine 10 MG TABLET PO SCH (09:27)
[2016-10-25] MEDS: Magnesium Oxide 400 MG TABLET PO SCH ×2 (09:28→19:59)
[2016-10-25] MEDS: Insulin LISPRO 300 UNITS/3 ML VIAL SQ SCH ×3 (09:28→17:13)
[2016-10-25] MEDS: Nystatin POWDER 30 GM BOTTLE TP SCH ×2 (09:44→20:00)
[2016-10-25] MEDS: Budesonide/Formoterol 160/4.5 MDI IH SCH ×2 (11:00→22:16)
[2016-10-25] MEDS: Acetaminophen 325 MG TABLET PO PRN (13:05)
--- NOTE | 2016-10-25 13:52 | Internal Med Progress Note ---
Date of Encounter: 10/25/16 Time of Encounter: 13:50 - Assessment and plan (1) Hypokalemia Current Visit: Yes Status: Resolved Assessment and plan: Resolved, now elevated this morning, will hold supplements and give [id number]\\ Monitor chem (2) Acute exacerbation of COPD with asthma Current Visit: Yes Status: Resolved Assessment and plan: Resolved (3) Acute kidney injury superimposed on chronic kidney disease Current Visit: Yes Status: Resolved Assessment and plan: Resolved. Creatinine has been stable at baseline (4) Intractable cyclical vomiting with nausea Current Visit: Yes Status: Chronic Assessment and plan: Surgery had verbally signed off 10/23 due to patient refused offered diagnostic EGD Patient was scheduled for d/c to home hospice, however today, requests surgery consultation as she now wants the procedure Surgery has been consulted (5) Diastolic CHF Current Visit: Yes Status: Chronic Assessment and plan: Not in exacerbation Will continue to monitor closely Qualifiers: Congestive heart failure chronicity: chronic Qualified Code(s): I50.32 - Chronic diastolic (congestive) heart failure (6) Chronic anemia Current Visit: Yes Status: Chronic (7) DMII (diabetes mellitus, type 2) Current Visit: Yes Status: Chronic Assessment and plan: SQ insulin, basal and prandial, monitor FS Qualifiers: Diabetes mellitus complication status: with unspecified complications Diabetes mellitus [facility] insulin use: unspecified vermin exterminator insulin use status Qualified Code(s): E11.8 - Type 2 diabetes mellitus with unspecified complications (8) HLD (hyperlipidemia) Current Visit: Yes Status: Chronic Qualifiers: Hyperlipidemia type: mixed hyperlipidemia Qualified Code(s): E78.2 - Mixed hyperlipidemia (9) HTN (hypertension) Current Visit: Yes Status: Chronic Assessment and plan: Meds held due to low BP Patient's BP running low with MAP 65. Will give gentle boluses if MAP <65 Continue to monitor closely Qualifiers: Hypertension type: unspecified secondary hypertension Qualified Code(s): I15.9 - Secondary hypertension, unspecified; I15 - Secondary hypertension (10) Hypothyroid Current Visit: Yes Status: Chronic Qualifiers: Hypothyroidism type: acquired Qualified Code(s): E03.9 - Hypothyroidism, unspecified (11) Morbid obesity with BMI of 70 and over, adult Current Visit: Yes Status: Chronic (12) VONDA (obstructive sleep apnea) Current Visit: Yes Status: Chronic Assessment and plan: BIPAP RTC (13) Obesity hypoventilation syndrome Current Visit: Yes Status: Chronic - Subjective Interval history: 51 Y/O F with PMH of Morbid Obesity, discharged 06/2016 to home hospice Being managed in this admission for acute on chronic respiratory failure and CHRISTO CHRISTO and respiratory failure has resolved She has been noted to have lost >100 pounds unintentionally and reports not being able to tolerate orally Barium studies revealed possible esophageal dysmotility, with recommendations for endoscopy However, patient had refused EGD offered by surgery Her main active problems this morning is persistent nausea and vomiting with low blood pressures This morning, patient tells physician "I do not want to yet, I want surgery and the procedure, and or a feeding tube". Prior to this conversation, she had been scheduled to return to home hospice today I have spoken to the surgical team following patient , they will review - Constitutional Vitals: Temp Pulse Resp BP Pulse Ox 97.8 F 90 18 100/65 100 10/25/16 11:30 10/25/16 11:30 10/25/16 11:30 10/25/16 11:30 10/25/16 11:30 General appearance: Present: A&O X 3, morbidly obese, no acute distress, answers questions appropriately - Head Head exam: Present: atraumatic - Eye Eye exam: Present: PERRL, conjuntiva pink, sclera anicteric - ENT Additional comments: Perinasal mottling possibly fro chronic use of BiPAP - Neck Neck exam general surgery: Present: supple, trachea midline. Absent: lymphadenopathy - Respiratory Respiratory exam: Present: CTAB. Absent: accessory muscle use, rales, rhonchi, wheezes - Cardiovascular Cardiovascular exam: Present: RRR, +S1, +S2. Absent: diastolic murmur, gallop, rubs, systolic murmur - GI/Abdominal GI/Abdominal exam: Present: normal bowel sounds, soft, no peritoneal signs. Absent: distended, tenderness - Extremities Exam Extremities exam: Present: warm, radial pulses palpable and symetrical. Absent : calf tenderness, cyanotic, pedal edema - Neurological Exam Neurological exam: Present: CN II-XII intact, oriented X3, no focal deficits. Absent: pronater drift, facial droop, speech deficit - Skin Skin exam: Present: dry, excoriation Internal Medicine: Result - Labs CBC & Chem 7: 12/30/16 04:10 10/25/16 07:25 Labs: BMP 10/25/16 07:25 Sodium 139 Potassium 5.2 H Chloride 107 Carbon Dioxide 23 BUN 18 Creatinine 1.34 H Glucose 171 H Calcium 8.6 - ABG Interpretation ABG results: PT/INR, D-dimer PT 13.1 Seconds (9.4-12.1) H 10/19/16 04:24 Consult Discharge Plan - Plan Referrals: Aide Foss DO [Primary Care Provider] - 11/01/16 10:00 am ()
[2016-10-25] MEDS ORDERED: *HR* HYDROmorphone 2 MG TABLET PO ONE (14:58)
--- NOTE | 2016-10-25 19:08 | Anesthesia Evaluation PreOp ---
Date of Encounter: 10/25/16 Time of Encounter: 19:00 - Past History Planned Operation: EGD Cardiac History: CHF (Diastolic Dysfunction), HTN, Hyperlipidemia, Other ( Chronic Anemia) Pulmonary History: COPD, VONDA Dx (Currently on BiPap) TAPROOM ATTENDANT History: Denies Any Significant HX Other Medical History: Renal (CKD Stage 3), Diabetes Type II, Thyroid ( Hypothyroid), Other (Morbid Obesity BMI 70) Anesthesia History: No Prior Anesthetic Complications : No Alcohol Use: none Drug use: none Medications and Allergies Cetirizine HCl [Zyrtec] 10 mg PO DAILY 07/16/15 [History] Cholecalciferol (Vitamin D3) [Vitamin D3] 5,000 unit PO DAILY 07/16/15 [History] Ferrous Sulfate 325 mg PO TID 07/16/15 [History] Glimepiride [Amaryl] 1 mg PO BID 07/16/15 [History] Insulin Glargine,Hum.rec.anlog [Lantus Solostar] 67 unit SQ BID 07/16/15 [ History] Ondansetron [Zofran] 4 mg PO Q8H PRN 07/16/15 [History] Atorvastatin [Lipitor] 40 mg PO HS 02/13/16 [History] Guaifenesin [Mucinex] 600 mg PO Q12H 02/13/16 [History] Magnesium Oxide [Mag-Ox] 400 mg PO BID 02/13/16 [History] Oxybutynin [Ditropan] 2.5 mg PO BID 02/13/16 [History] Budesonide/Formoterol 160/4.5 [Symbicort 160/4.5] 2 puff IH BIDR #1 inhaler 04/08 [Rx] Capsaicin 0.025% [Trixaicin] 1 appl TP TID 05/30/16 [History] Clotrimazole/Betameth Dip CRM [Lotrisone CRM] 1 appl TP BID 05/30/16 [History] Gabapentin [Neurontin] 300 mg PO BID 05/30/16 [History] Insulin LISPRO [Humalog Kwikpen U-100] 30 unit SQ TIDWM 05/30/16 [History] LORazepam [Ativan] 1 mg PO BID PRN 05/30/16 [History] Levothyroxine [Synthroid] 175 mcg PO DAILY 05/30/16 [History] Omeprazole [PriLOSEC] 20 mg PO BIDAC 05/30/16 [History] Oxygen 3.5 l NS AD 05/30/16 [History] Saline Nasal [place] [[place] Nasal [place]] 1 - 2 spray NS Q4-6H PRN 05/30/16 [ History] Albuterol Sulfate [Albuterol Inhaler] 2 puff IH Q4HR PRN 30 Days 06/07/16 [Rx] LORazepam Oral Conc [Ativan Oral Conc] 1 mg PO Q6HR #30 mls 07/08/16 [Rx] OxyCODONE Immed Rel [Roxicodone 5 MG] 5 mg PO Q2H PRN #70 tab 07/08/16 [Rx] Cyanocobalamin (B-12) [Vitamin B12] 1,000 mcg PO DAILY 10/19/16 [History] Furosemide [Lasix] 80 mg PO BID 10/19/16 [History] Allergies aspartame Allergy (Verified 06/08/16 15:48) Hives ciprofloxacin [From Cipro] Allergy (Verified 06/08/16 15:48) Hives escitalopram [From Lexapro] Allergy (Verified 06/08/16 15:48) Hives morphine Allergy (Verified 06/08/16 15:48) Hives Penicillins Allergy (Verified 06/08/16 15:48) Hives prochlorperazine Allergy (Verified 06/08/16 15:48) Hives haloperidol [From Haldol] Adverse Reaction (Verified 10/19/16 05:29) Hallucinating - Meds/Allergy Pre-op Review Medications Reviewed: Yes Allergies Reviewed: Yes Beta Blockers on Current Med List: No Anesthesia Results - Labs 10/22/16 04:10 10/25/16 07:25 Laboratory Tests 10/19/16 10/22/16 10/25/16 04:24 04:10 07:25 Hgb 8.3 L Hct 26.6 L Plt Count 135 L PT 13.1 H INR 1.2 APTT 35.4 Sodium 139 Potassium 5.2 H BUN 18 Creatinine 1.34 H POC Glucose 10/25/16 16:24 Hgb Hct Plt Count PT INR APTT Sodium Potassium BUN Creatinine POC Glucose 166 H - Imaging EKG: report reviewed (SR non specific changes) Additional studies: ECHO from -2015 LVEF 65% Anesthesia Exam O2 Sat Weight 170.097 kg O2 Sat by Pulse Oximetry 100 O2 Sat by Pulse Oximetry 90 O2 Sat by Pulse Oximetry 100 O2 Sat by Pulse Oximetry 100 O2 Sat by Pulse Oximetry 100 O2 Sat by Pulse Oximetry 100 O2 Sat by Pulse Oximetry 100 O2 Sat by Pulse Oximetry 98 O2 Sat by Pulse Oximetry 98 O2 Sat by Pulse Oximetry 100 O2 Sat by Pulse Oximetry 93 Vital Signs Temp Pulse Resp BP Pulse Ox 98.2 F 80 20 98/62 97 10/18/16 19:20 10/18/16 19:20 10/18/16 19:20 10/18/16 19:20 10/18/16 19:20 Height: 5'3 Weight: 375 lbs NPO (# of Hours): MN - HEENT Pupil (Motor): Pupils equal, EOMI Mallampati: III Teeth: Edentulous Oral Opening: Less than or equal to 3 - TAPROOM ATTENDANT LOC: Oriented TAPROOM ATTENDANT Motor: Normal RUE, Normal LUE, Normal RLE, Normal LLE, Normal Face TAPROOM ATTENDANT Sensory: Normal: RUE, LUE, RLE, LLE, Face - Cardiac Rhythm: Regular Murmur: None JVD: No Carotid Bruit: No - Pulmonary Breath Sounds: bilateral Clear Respiratory Effort: Symmetrical (On BiPAP) Anesthesia Assess/Plan ASA Score: 4 (MO HTN VONDA CKD DM) Modified Jose L Scale for Level of Consciousness: Cooperative, oriented, and tranquil Anesthetic Plan: MAC Monitoring Plan: Standard Monitors Recovery Plan: PACU (Discussed MAC, agrees to proceed)
[2016-10-25] MEDS: Insulin DETEMIR 100 UNIT/ML X5UNITS SQ SCH (19:59)
[2016-10-26] MEDS: *HR* Heparin 5,000 UNIT/ML VIAL SQ SCH ×3 (00:41→16:05)
[2016-10-26] MEDS: Ondansetron 4 MG/2 ML VIAL IVP PRN ×3 (02:39→16:05)
[2016-10-26] MEDS: *HR* HYDROmorphone (PF) 1 MG/ML SYRINGE IVP PRN ×4 (02:39→22:01)
[2016-10-26] MEDS: Ipratropium/Albuterol Neb 3 ML IH SCH ×2 (04:39→10:22)
[2016-10-26] MEDS: Insulin LISPRO 300 UNITS/3 ML VIAL SQ SCH ×3 (08:19→16:05)
[2016-10-26] MEDS: Nystatin POWDER 30 GM BOTTLE TP SCH ×2 (08:19→22:01)
[2016-10-26] MEDS: Magnesium Oxide 400 MG TABLET PO SCH ×2 (08:20→22:00)
[2016-10-26] MEDS: Gabapentin 300 MG CAPSULE PO SCH ×2 (08:20→22:00)
[2016-10-26] MEDS: Loratadine 10 MG TABLET PO SCH (08:21)
[2016-10-26] MEDS: Budesonide/Formoterol 160/4.5 MDI IH SCH ×2 (10:22→20:03)
[2016-10-26] MEDS ORDERED: 0.9 % Sodium Chloride 1,000 ML IVC SCH (10:45)
[2016-10-26] MEDS ORDERED: Metoclopramide 10 MG/2 ML VIAL ONE (11:16)
[2016-10-26] MEDS ORDERED: Famotidine 20 MG/2 ML VIAL ONE (11:16)
[2016-10-26 11:24] LABS: Basophils % 0.5 %; Eosinophils # 0.2 K/mcL (0.0-0.6); Eosinophils % 3.3 %; Hematocrit 27.5 % (35.3-44.9); Hemoglobin 8.7 g/dL (11.5-15.4); Immature Granulocytes % 0.5 % (0-4); Lymphocytes # 0.7 K/mcL (0.6-4.6); Lymphocytes % 10.7 %; Mean Corpuscular HGB Conc 31.6 g/dL (31.6-35.5); Mean Corpuscular Hemoglobin 28.2 pg (28.0-33.3); Mean Corpuscular Volume 89.3 fL (83.0-100.0); Mean Platelet Volume 9.4 fL (9.4-12.4); Monocytes # 0.3 K/mcL (0.0-1.3); Monocytes % 4.6 %; Neutrophils # 5.2 K/mcL (1.6-8.9); Platelet Count 122 K/mcL (140-400); Red Blood Count 3.08 M/mcL (3.82-4.97); Red Cell Distribution Width 15.8 % (11.5-14.5); Segmented Neutrophils % 80.4 %
[2016-10-26] MEDS ORDERED: Ketamine *HR* 500 MG/10 ML MDV ONE (11:33)
[2016-10-26 11:37] LABS: Calcium 8.8 mg/dL (8.6-10.8)
[2016-10-26] MEDS ORDERED: Ipratropium/Albuterol Neb 3 ML IH PRN (12:04)
[2016-10-26] MEDS ORDERED: *HR* Propofol 200 MG/20 ML VIAL IVP ONE (12:08)
--- NOTE | 2016-10-26 12:14 | Anesthesia Evaluation Post Op ---
Date of Encounter: 10/26/16 Time of Encounter: 12:12 - Vital Signs Vital Signs: 3 Vital Signs Time 1305 BP 106/76 Pulse 91 Resp 20 O2 Sat 99 - Lungs Lungs: Clear Ascult./Percussion (no change) - Airway Airway: Non-obstructed - Cardiovascular Regular Rate - Mental Status Mental Status: Alert & Oriented, Answers Appropriately - Pain Pain Scale: 0 - Nausea Vomiting Nausea Vomiting: Present (chronic nausea) - Hydration Hydration: NPO, Has not voided - Discharge PostOp Status: Transfer Patient to floor
--- NOTE | 2016-10-26 14:18 | Palliative - Consult Note ---
Date of Encounter: 10/26/16 Time of Encounter: 14:16 - Assessment and Plan (1) Nausea and vomiting Current Visit: Yes Status: Acute Assessment and plan: Anti-emetics scheduled around the clock for now. Added reglan for increased motility. EGD completed today, results noted. Qualifiers: Vomiting type: cyclical vomiting Vomiting Intractability: intractable Qualified Code(s): G43.A1 - Cyclical vomiting, intractable (2) COPD exacerbation Current Visit: Yes Status: Acute Assessment and plan: On BIPAP (3) Goals of care, counseling/discussion Current Visit: Yes Status: Acute Assessment and plan: Discussed goals of care with the patient and her . She states that she revoked hospice services because she "wanted worked up" for the intractable nausea and weight loss. We discussed code status. Ms. Pal wishes to be a DNR/DNI as was her previously known intent. She is still contemplating going home with hospice services vs. Home Health. Ms. Pal states that this decision will depend on the report of findings. Her goal was to discover the reason behind the intractable nausea and vomiting. social services specialist are following the patient to assist with discharge planning. Palliative-CN HPI - Data of Consult Patient: known to practice within the last 3 years Consult date: 10/26/16 Requesting Physician: Jensen Bangura MD Primary Care Provider: Aide Foss DO - Consult Narrative Palliative Care/Comfort Measures: Palliative care Reason for consult: Goals of care History of present illness: Ms. Pal is a 51 year old female known to the palliative care team from prior admissions. She was enrolled in [facility] services prior to admission. Ms. Pal reports a 3 month history of intractable nausea and vomiting with a 140# weight loss in 3 months. She revoked hospice services to seek aggressive input on what is causing her nausea/vomiting. General surgery was consulted to assist with treatment options. Ms. Pal initially declined invasive testing due to the risks of anesthesia. An Upper GI series was completed and revealed esophageal dismotility. Further recommendations were for an EGD, but Ms. Pal declined that until today. Her EGD revealed mild gastritis. The palliative care team was consulted to assist with goals of care management and code status discussions. Overall, Ms. Pal has been on a progressive decline over the past 6 months. She is bed bound and depends on her BiPAP the vast majority of the time , only using her nasal cannula during meal times. She reports progressive generalized weakness and shortness of breath with exertion. Ms. Pal has had a chronic indwelling dallas catheter for at least 3 months. She reports having loose stools. Ms. Pal has chronic low back pain that has been stable. She has some mild lower extremity edema, but it is stable. CC: Jensen Bangura MD Past Med Surg Social Fam HX - Past Medical History Attestation: Yes The following information was validated with the patient. Source: patient, old records reviewed Medical history: arthritis, asthma, CHF, COPD, diabetes, GERD, hyperlipidemia, hypertension, osteoporosis, renal disease, thyroid disease, other (pulmonary hypertension, morbid obesity, VONDA, esophagitis, CKD, neuropathy) Psychiatric history: anxiety, depression, other - Past Surgical History Surgical History: appendectomy, , cholecystectomy, herniorrhaphy, orthopedic, other, sinus surgery, other (tonsillectomy) - Social History Smoking Status: Former smoker Packs per day: Smoked approximately 2 packs per day for most of her adult life quit x9yrs Smokeless Tobacco Status: No Alcohol use: none Drug use: none Occupational status: disabled Current living situation: Home, With Family Activity Level: Bed bound Additional social history: Ms. Pal was previously enrolled in hospice care. She opted to revoke hospice and return to the hospital for aggressive measures. - Family History Mother Adopted: No Living Status: Hx Family Cardiac Disorders: No Hx Family Respiratory Disorders: No Hx Family Cancer: Yes Hx Family GI Disorders: No Hx Family Endocrine Disorder: No Hx Family Neuromuscular Disorders: No Hx Family Neurologic Disorders: No Hx Family HEENT Disorders: No Hx Family Autoimmune Disorders: No Sister Hx Family Cancer: Yes (Sister " female cancer requiring hysterectomy") Father Adopted: No Living Status: Hx Family Cardiac Disorders: No Hx Family Respiratory Disorders: No Hx Family Cancer: No Hx Family GI Disorders: Yes Hx Family Endocrine Disorder: Yes Hx Family Neuromuscular Disorders: No Hx Family Neurologic Disorders: No Hx Family HEENT Disorders: No Hx Family Autoimmune Disorders: No Maternal Grandfather History Unknown: Yes Hx Family Cancer: Yes Medications and Allergies Cetirizine HCl [Zyrtec] 10 mg PO DAILY 07/16/15 [History] Cholecalciferol (Vitamin D3) [Vitamin D3] 5,000 unit PO DAILY 07/16/15 [History] Ferrous Sulfate 325 mg PO TID 07/16/15 [History] Glimepiride [Amaryl] 1 mg PO BID 07/16/15 [History] Insulin Glargine,Hum.rec.anlog [Lantus Solostar] 67 unit SQ BID 07/16/15 [ History] Ondansetron [Zofran] 4 mg PO Q8H PRN 07/16/15 [History] Atorvastatin [Lipitor] 40 mg PO HS 02/13/16 [History] Guaifenesin [Mucinex] 600 mg PO Q12H 02/13/16 [History] Magnesium Oxide [Mag-Ox] 400 mg PO BID 02/13/16 [History] Oxybutynin [Ditropan] 2.5 mg PO BID 02/13/16 [History] Budesonide/Formoterol 160/4.5 [Symbicort 160/4.5] 2 puff IH BIDR #1 inhaler 04/08 [Rx] Capsaicin 0.025% [Trixaicin] 1 appl TP TID 05/30/16 [History] Clotrimazole/Betameth Dip CRM [Lotrisone CRM] 1 appl TP BID 05/30/16 [History] Gabapentin [Neurontin] 300 mg PO BID 05/30/16 [History] Insulin LISPRO [Humalog Kwikpen U-100] 30 unit SQ TIDWM 05/30/16 [History] LORazepam [Ativan] 1 mg PO BID PRN 05/30/16 [History] Levothyroxine [Synthroid] 175 mcg PO DAILY 05/30/16 [History] Omeprazole [PriLOSEC] 20 mg PO BIDAC 05/30/16 [History] Oxygen 3.5 l NS AD 05/30/16 [History] Saline Nasal [place] [[place] Nasal [place]] 1 - 2 spray NS Q4-6H PRN 05/30/16 [ History] Albuterol Sulfate [Albuterol Inhaler] 2 puff IH Q4HR PRN 30 Days 06/07/16 [Rx] LORazepam Oral Conc [Ativan Oral Conc] 1 mg PO Q6HR #30 mls 07/08/16 [Rx] OxyCODONE Immed Rel [Roxicodone 5 MG] 5 mg PO Q2H PRN #70 tab 07/08/16 [Rx] Cyanocobalamin (B-12) [Vitamin B12] 1,000 mcg PO DAILY 10/19/16 [History] Furosemide [Lasix] 80 mg PO BID 10/19/16 [History] Allergies aspartame Allergy (Verified 06/08/16 15:48) Hives ciprofloxacin [From Cipro] Allergy (Verified 06/08/16 15:48) Hives escitalopram [From Lexapro] Allergy (Verified 06/08/16 15:48) Hives morphine Allergy (Verified 06/08/16 15:48) Hives Penicillins Allergy (Verified 06/08/16 15:48) Hives prochlorperazine Allergy (Verified 06/08/16 15:48) Hives haloperidol [From Haldol] Adverse Reaction (Verified 10/19/16 05:29) Hallucinating - Constitutional Constitutional ROS PAL: decreased appetite, weight loss (patient self reports a 140# weight loss since June 2016) - EENT Eyes: no change in vision Ears: no decreased hearing Ears, nose, mouth, throat: dysphagia, no dry mouth, no neck pain, no sore throat - Cardiovascular Cardiovascular ROS: dyspnea on exertion, no chest pain, no leg edema - Respiratory Respiratory: dyspnea, dyspnea on exertion Additional comments: BiPAP dependent except during meals when she wears O2 at 3 liters per nasal cannula. - Gastrointestinal Gastrointestinal: loose stools, nausea, vomiting, no abdominal pain, no constipation, no hematemesis Additional comments: reports chronic nausea with vomiting during meals accompanied by weight loss. - Genitourinary Additional comments: chronic indwelling dallas catheter with occasional bladder spasms. - Musculoskeletal Musculoskeletal ROS IM: back pain (chronic), muscle weakness Additional comments: bedbound - Integumentary ROS Integumentary: rash (intermittent to skin folds) - Neurological Neurological ROS: weakness (generalized overal weakness), no confusion, no paresthesias - Psychiatric Psychiatric general PM: depression Palliative Care-Exam - Constitutional Vitals: Temp Pulse Resp BP Pulse Ox 98.3 F 91 16 116/64 98 10/26/16 11:20 10/26/16 11:20 10/26/16 11:20 10/26/16 11:20 10/26/16 11:20 General appearance: Present: cooperative, morbidly obese Exam: 51 year old female appearing older than stated age, morbidly obese, bipap dependent. - Head Head Exam: Present: atraumatic - Eye Eye exam: Present: EOMI Pupils: Present: PERRL - ENT ENT exam: Present: mucous membranes moist - Expanded ENT Exam Teeth exam: Present: edentulous - Respiratory Respiratory exam: Present: decreased breath sounds. Absent: accessory muscle use, respiratory distress Additional comments: BiPAP dependent - Cardiovascular Cardiovascular exam: Present: RRR - GI/Abdominal Exam GI/Abdominal exam: Present: normal bowel sounds. Absent: guarding, tenderness - Expanded GI/Abdominal Exam GI/Abdominal exam: Absent: ascites - Rectal Rectal exam: Present: deferred - Catheter Type: Urethral ([place]) - Extremities Exam Extremities exam: Absent: pedal edema - Neurological Exam Neurological exam: Present: alert, oriented X3, no focal deficits, strengths equal and symetr throughout (generalized weakness) - Psychiatric Psychiatric exam: Present: flat affect. Absent: agitated, anxious - Skin Skin exam: Present: dry, warm Internal Medicine - CN: Reslt - Labs CBC & Chem 7: 10/26/16 11:18 10/26/16 11:18 Labs: Short CBC 10/26/16 Range/Units 11:18 WBC 6.5 D (4.3-11.1) K/mcL Hgb 8.7 L (11.5-15.4) g/dL Hct 27.5 L (35.3-44.9) % Plt Count 122 L (140-400) K/mcL Neutrophils # 5.2 (1.6-8.9) K/mcL BMP 10/26/16 11:18 Sodium 138 Potassium 5.0 H Chloride 103 Carbon Dioxide 29 BUN 17 Creatinine 1.29 H Glucose 153 H Calcium 8.8 - ABG Interpretation ABG results: PT/INR, D-dimer PT 13.1 Seconds (9.4-12.1) H 10/19/16 04:24 Consult Discharge Plan - Plan Referrals: Aide Foss DO [Primary Care Provider] - 11/01/16 10:00 am () Palliative Quality Palliative Quality: Screen for Code Status: Yes, Screen for Goals of Care: Yes, Screen for Pain: Yes, If Pain Regimen Started, Initiate Bowel Regimen: NA, Screen for Nausea/Vomitting: Yes
[2016-10-26] MEDS ORDERED: Ondansetron 4 MG/2 ML VIAL ONE (14:33)
--- NOTE | 2016-10-26 14:40 | Internal Med Progress Note ---
Date of Encounter: 10/26/16 Time of Encounter: 14:38 - Assessment and plan (1) COPD exacerbation Current Visit: Yes Status: Acute Assessment and plan: resolved. (2) Goals of care, counseling/discussion Current Visit: Yes Status: Acute Assessment and plan: palliative was consulted. maryan wants to remain DNR-CCA however just wanted work up for her peristent nausea. appreciate palliative recommnedations. (3) HLD (hyperlipidemia) Current Visit: Yes Status: Chronic Qualifiers: Hyperlipidemia type: mixed hyperlipidemia Qualified Code(s): E78.2 - Mixed hyperlipidemia (4) HTN (hypertension) Current Visit: Yes Status: Chronic Assessment and plan: bP stable today. Continue to monitor closely Qualifiers: Hypertension type: unspecified secondary hypertension Qualified Code(s): I15.9 - Secondary hypertension, unspecified; I15 - Secondary hypertension (5) Intractable cyclical vomiting with nausea Current Visit: Yes Status: Chronic Assessment and plan: Surgery had verbally signed off 10/23 due to patient refused offered diagnostic EGD Patient was scheduled for d/c to home hospice, however requests surgery consultation as she now wants the procedure she underwent EGD today and showed mild gastritis. will add sucralfate as per the recommendation. will also add reglan as she has GERD and her upper bowel series also shows reflux disease. will consult GI if this does not help. (6) Morbid obesity with BMI of 70 and over, adult Current Visit: Yes Status: Chronic (7) VONDA (obstructive sleep apnea) Current Visit: Yes Status: Chronic Assessment and plan: BIPAP RTC (8) Acute kidney injury superimposed on chronic kidney disease Current Visit: Yes Status: Resolved Assessment and plan: Resolved. Creatinine has been stable at baseline - Time Spent With Patient 25 - 35 minutes - Subjective Interval history: Patient seen at the bedside, complaining of nausea. Reported that she vomited once today. CODE STATUS is still DNR CC, however wanted to have work up for thus nausea. - Constitutional Vitals: Temp Pulse Resp BP Pulse Ox 98.3 F 91 16 116/64 98 10/26/16 11:20 10/26/16 11:20 10/26/16 11:20 10/26/16 11:20 10/26/16 11:20 General appearance: Present: A&O X 3, morbidly obese, no acute distress, answers questions appropriately Exam: General appearance: Present: A&O X 3, morbidly obese, no acute distress, answers questions appropriately - Head Head exam: Present: atraumatic - Eye Eye exam: Present: PERRL, conjuntiva pink, sclera anicteric - ENT Additional comments: Perinasal mottling possibly fro chronic use of BiPAP - Neck Neck exam general surgery: Present: supple, trachea midline. Absent: lymphadenopathy - Respiratory Respiratory exam: Present: CTAB. Absent: accessory muscle use, rales, rhonchi, wheezes - Cardiovascular Cardiovascular exam: Present: RRR, +S1, +S2. Absent: diastolic murmur, gallop, rubs, systolic murmur - GI/Abdominal GI/Abdominal exam: Present: normal bowel sounds, soft, no peritoneal signs. Absent: distended, tenderness - Extremities Exam Extremities exam: Present: warm, radial pulses palpable and symetrical. Absent : calf tenderness, cyanotic, pedal edema - Neurological Exam Neurological exam: Present: CN II-XII intact, oriented X3, no focal deficits. Absent: pronater drift, facial droop, speech deficit - Skin Skin exam: Present: dry, excoriation Internal Medicine: Result - Labs CBC & Chem 7: 10/26/16 11:18 10/26/16 11:18 Labs: Short CBC 10/26/16 Range/Units 11:18 WBC 6.5 D (4.3-11.1) K/mcL Hgb 8.7 L (11.5-15.4) g/dL Hct 27.5 L (35.3-44.9) % Plt Count 122 L (140-400) K/mcL Neutrophils # 5.2 (1.6-8.9) K/mcL BMP 10/26/16 11:18 Sodium 138 Potassium 5.0 H Chloride 103 Carbon Dioxide 29 BUN 17 Creatinine 1.29 H Glucose 153 H Calcium 8.8 - ABG Interpretation ABG results: PT/INR, D-dimer PT 13.1 Seconds (9.4-12.1) H 10/19/16 04:24 Consult Discharge Plan - Plan Referrals: Aide Foss DO [Primary Care Provider] - 11/01/16 10:00 am ()
[2016-10-26] MEDS: Ondansetron 4 MG/2 ML VIAL IVP SCH (14:41)
[2016-10-26] MEDS: Sucralfate 1 GM TABLET PO SCH ×2 (16:05→22:00)
[2016-10-26] MEDS: Insulin DETEMIR 100 UNIT/ML X5UNITS SQ SCH (22:00)
[2016-10-27] MEDS: *HR* Heparin 5,000 UNIT/ML VIAL SQ SCH ×3 (01:30→14:57)
[2016-10-27] MEDS: Ondansetron 4 MG/2 ML VIAL IVP SCH ×4 (01:31→17:04)
[2016-10-27] MEDS: Loratadine 10 MG TABLET PO SCH (08:28)
[2016-10-27] MEDS: Magnesium Oxide 400 MG TABLET PO SCH ×2 (08:28→20:50)
[2016-10-27] MEDS: Gabapentin 300 MG CAPSULE PO SCH ×2 (08:29→20:50)
[2016-10-27] MEDS: Budesonide/Formoterol 160/4.5 MDI IH SCH ×2 (08:38→21:58)
--- NOTE | 2016-10-27 09:15 | Palliative Progress Note ---
Date of Encounter: 10/27/16 Time of Encounter: 08:30 - Assessment and plan (1) Nausea and vomiting Current Visit: Yes Status: Acute Assessment and plan: Mild gastritis noted on EGD A she has noted that the Reglan and scheduled Zofran does seem to be helping some, however the patient still has a bag in her hand. Qualifiers: Vomiting type: cyclical vomiting Vomiting Intractability: intractable Qualified Code(s): G43.A1 - Cyclical vomiting, intractable (2) Goals of care, counseling/discussion Current Visit: Yes Status: Acute Assessment and plan: The patient is DNR CCA, DNI to work is working on her discharge plan. The patient is probably going home with [facility]. (3) Dyspnea Current Visit: No Status: Acute Assessment and plan: Using BiPAP as needed, she is largely BiPAP dependent new current medications. Qualifiers: Dyspnea type: shortness of breath Qualified Code(s): R06.02 - Shortness of breath - Time Spent With Patient Total time spent is greater than 50% in coordination of care (as documented) at patient's floor/unit and/or counseling patient: - Subjective Interval history: Nausea is a little better this morning. Otherwise no complaint. She seems somewhat cheerful. Patient is not wearing BiPAP currently. - Constitutional Vitals: Abnormal lab results RBC 3.08 M/mcL (3.82-4.97) L 10/26/16 11:18 Hgb 8.7 g/dL (11.5-15.4) L 10/26/16 11:18 Hct 27.5 % (35.3-44.9) L 10/26/16 11:18 RDW 15.8 % (11.5-14.5) H 10/26/16 11:18 Plt Count 122 K/mcL (140-400) L 10/26/16 11:18 PT 13.1 Seconds (9.4-12.1) H 10/19/16 04:24 Potassium 5.0 mEq/L (3.5-4.5) H 10/26/16 11:18 Creatinine 1.29 mg/dL (0.57-1.11) H 10/26/16 11:18 Est GFR ( Amer) 52 (> 60) L 10/26/16 11:18 Est GFR (Non-Af Amer) 43 (> 60) L 10/26/16 11:18 Glucose 153 mg/dL (70-99) H 10/26/16 11:18 POC Glucose 115 (58-89) H 10/27/16 07:50 Hemoglobin A1c 8.1 % (-5.6) H 10/19/16 04:24 Phosphorus 1.9 mg/dL (2.3-4.7) L 10/22/16 04:10 Alkaline Phosphatase 159 Units/L (38-126) H 10/18/16 23:00 Creatine Kinase 14 Units/L (29-168) L 10/19/16 04:06 C-Reactive Protein 67 mg/L (Less than 5) H 10/19/16 04:06 Albumin 2.4 g/dL (3.5-5.0) L 10/18/16 23:00 Globulin 5.2 g/dL (2.4-3.5) H 10/18/16 23:00 Albumin/Globulin Ratio 0.5 (1.1-2.2) L 10/18/16 23:00 Ur Specimen Adequacy See below A 10/19/16 10:09 Urine Color Red (Yellow) A 10/19/16 10:09 Urine Clarity Turbid (Clear) A 10/19/16 10:09 Urine Protein 100 mg/dL (Neg-Trace) H 10/19/16 10:09 Urine Ketones Trace mg/dL (Negative) H 10/19/16 10:09 Urine Blood Large (Negative) H 10/19/16 10:09 Urine Nitrite Positive (Negative) A 10/19/16 10:09 Urine Bilirubin Moderate (Negative) H 10/19/16 10:09 Ur Leukocyte Esterase Large (Negative) H 10/19/16 10:09 Urine Microscopic WBC TNTC per hpf (0-3) H 10/19/16 10:09 Ur Squamous Epith Cells Many per lpf (None-Few) H 10/19/16 10:09 Urine Bacteria Many per hpf (None-Few) H 10/19/16 10:09 Urine Yeast Present per hpf (None Seen) H 10/19/16 10:09 Urine Opiates Screen Positive ng/mL (Vlxbkc=731) H 10/19/16 10:09 General appearance: Present: morbidly obese, no acute distress - Head Head exam: Present: atraumatic, normal inspection - Eye Eye exam: Present: normal appearance - ENT ENT exam: Present: mucous membranes moist - Neck Neck exam: Present: normal inspection - Respiratory Respiratory exam: Present: decreased breath sounds (Not on BiPAP currently.) - Cardiovascular Cardiovascular exam: Present: RRR - GI/Abdominal GI/Abdominal exam: Present: normal bowel sounds, soft. Absent: tenderness - Extremities Exam Extremities exam: Present: normal inspection. Absent: pedal edema - Neurological Exam Neurological exam: Present: alert, oriented X3 - Psychiatric Psychiatric exam: Present: normal affect, normal mood. Absent: agitated, anxious - Skin Skin exam: Present: dry, warm Palliative Quality Palliative Quality: Screen for Code Status: Yes, Screen for Goals of Care: Yes, Screen for Pain: Yes, If Pain Regimen Started, Initiate Bowel Regimen: NA, Screen for Nausea/Vomitting: Yes Code Status: 10/19/16 01:09 Resuscitation Status: Active [RES] Routine Comment: Resuscitation Status: [id number] - Labs CBC & Chem 7: 10/26/16 11:18 10/26/16 11:18 Labs: Laboratory Results - last 24 hr 10/26/16 10/26/16 10/26/16 11:18 11:18 15:51 WBC 6.5 D RBC 3.08 L Hgb 8.7 L Hct 27.5 L MCV 89.3 MCH 28.2 MCHC 31.6 RDW 15.8 H Plt Count 122 L MPV 9.4 Immature Gran % 0.5 Seg Neutrophils % 80.4 Lymphocytes % 10.7 Monocytes % 4.6 Eosinophils % 3.3 Basophils % 0.5 Neutrophils # 5.2 Lymphocytes # 0.7 Monocytes # 0.3 Eosinophils # 0.2 Basophils # 0.0 Sodium 138 Potassium 5.0 H Chloride 103 Carbon Dioxide 29 BUN 17 Creatinine 1.29 H Est GFR ( Amer) 52 L Est GFR (Non-Af Amer) 43 L BUN/Creatinine Ratio 13 Glucose 153 H POC Glucose 110 H Calculated Osmolality 291 Calcium 8.8 10/26/16 10/27/16 20:54 07:50 WBC RBC Hgb Hct MCV MCH MCHC RDW Plt Count MPV Immature Gran % Seg Neutrophils % Lymphocytes % Monocytes % Eosinophils % Basophils % Neutrophils # Lymphocytes # Monocytes # Eosinophils # Basophils # Sodium Potassium Chloride Carbon Dioxide BUN Creatinine Est GFR ( Amer) Est GFR (Non-Af Amer) BUN/Creatinine Ratio Glucose POC Glucose 119 H 115 H Calculated Osmolality Calcium - Impressions Impressions Upper GI Series 10/22/16 14:54 IMPRESSION: Limited examination due to the patient's inability to stand and move on the table. There was evidence of gastroesophageal reflux and the esophagus did not completely empty suggesting some dysmotility or dysfunction. No obvious mass or stenosis. Limited evaluation of the stomach. The patient vomited contrast, and the study was then terminated. Endoscopy could better evaluate if indicated. D/ / 10/22/2016 16:02:29 Edith Rodriguez MD / bcarter Interpreting Provider: Edith Rodriguez MD - ABG Interpretation ABG results: PT/INR, D-dimer PT 13.1 Seconds (9.4-12.1) H 10/19/16 04:24 Consult Discharge Plan - Plan Referrals: Aide Foss DO [Primary Care Provider] - 11/01/16 10:00 am ()
[2016-10-27] MEDS: Insulin LISPRO 300 UNITS/3 ML VIAL SQ SCH ×3 (09:51→17:03)
[2016-10-27] MEDS: Sucralfate 1 GM TABLET PO SCH ×4 (09:51→21:02)
[2016-10-27] MEDS: *HR* HYDROmorphone (PF) 1 MG/ML SYRINGE IVP PRN ×2 (14:58→21:02)
--- NOTE | 2016-10-27 15:42 | Internal Med Progress Note ---
Date of Encounter: 10/27/16 Time of Encounter: 15:40 - Assessment and plan (1) COPD exacerbation Current Visit: Yes Status: Acute Assessment and plan: resolved. (2) Goals of care, counseling/discussion Current Visit: Yes Status: Acute Assessment and plan: palliative was consulted. maryan wants to remain DNR-CCA however just wanted work up for her peristent nausea. appreciate palliative recommnedations. (3) HLD (hyperlipidemia) Current Visit: Yes Status: Chronic Qualifiers: Hyperlipidemia type: mixed hyperlipidemia Qualified Code(s): E78.2 - Mixed hyperlipidemia (4) HTN (hypertension) Current Visit: Yes Status: Chronic Assessment and plan: bP stable today. Continue to monitor closely Qualifiers: Hypertension type: unspecified secondary hypertension Qualified Code(s): I15.9 - Secondary hypertension, unspecified; I15 - Secondary hypertension (5) Intractable cyclical vomiting with nausea Current Visit: Yes Status: Chronic Assessment and plan: Surgery had verbally signed off 10/23 due to patient refused offered diagnostic EGD Patient was scheduled for d/c to home hospice, however requests surgery consultation as she now wants the procedure she underwent EGD today and showed mild gastritis. will add sucralfate as per the recommendation. also added reglan as she has GERD and her upper bowel series also shows reflux disease. will consult GI as requested. (6) Morbid obesity with BMI of 70 and over, adult Current Visit: Yes Status: Chronic (7) VONDA (obstructive sleep apnea) Current Visit: Yes Status: Chronic Assessment and plan: BIPAP RTC (8) Acute kidney injury superimposed on chronic kidney disease Current Visit: Yes Status: Resolved Assessment and plan: Resolved. Creatinine has been stable at baseline - Time Spent With Patient 25 - 35 minutes - Subjective Interval history: Patient seen at the bedside, was changed tp zofran schedulaed and was started on reglan . she reports that she feels somewhat better but still has some nausea. when asked if she wants to be seen by GI< she says she would like a GI consult. s/p EGD that just showed mild gastritis. CODE STATUS is still DNR CC, however wanted to have work up for thus nausea. - Constitutional Vitals: Temp Pulse Resp BP Pulse Ox 98.9 F 88 20 98/73 99 10/27/16 11:39 10/27/16 11:39 10/27/16 11:39 10/27/16 11:39 10/27/16 11:39 General appearance: Present: A&O X 3, morbidly obese, no acute distress, answers questions appropriately Exam: neck- supple chest- b/l clear, no added sounds CVS- s1 and s2, no m/r/g abd-soft, obese, non tender, bs are present ext- no edema Internal Medicine: Result - Labs CBC & Chem 7: 10/26/16 11:18 10/26/16 11:18 - ABG Interpretation ABG results: PT/INR, D-dimer PT 13.1 Seconds (9.4-12.1) H 10/19/16 04:24 - Impressions Impressions Upper GI Series 10/22/16 14:54 IMPRESSION: Limited examination due to the patient's inability to stand and move on the table. There was evidence of gastroesophageal reflux and the esophagus did not completely empty suggesting some dysmotility or dysfunction. No obvious mass or stenosis. Limited evaluation of the stomach. The patient vomited contrast, and the study was then terminated. Endoscopy could better evaluate if indicated. D/ / 10/22/2016 16:02:29 Edith Rodriguez MD / art Interpreting Provider: Edith Rodriguez MD Consult Discharge Plan - Plan Referrals: Aide Foss DO [Primary Care Provider] - 11/01/16 10:00 am ()
[2016-10-27] MEDS: Nystatin POWDER 30 GM BOTTLE TP SCH ×2 (16:42→21:03)
[2016-10-27] MEDS: Insulin DETEMIR 100 UNIT/ML X5UNITS SQ SCH (20:49)
[2016-10-28] MEDS: Ondansetron 4 MG/2 ML VIAL IVP SCH ×4 (00:08→17:59)
[2016-10-28] MEDS: *HR* Heparin 5,000 UNIT/ML VIAL SQ SCH ×3 (00:08→17:57)
[2016-10-28] MEDS: *HR* HYDROmorphone (PF) 1 MG/ML SYRINGE IVP PRN ×3 (04:14→16:14)
[2016-10-28] MEDS: Budesonide/Formoterol 160/4.5 MDI IH SCH (07:50)
[2016-10-28] MEDS: Gabapentin 300 MG CAPSULE PO SCH (07:57)
[2016-10-28] MEDS: Magnesium Oxide 400 MG TABLET PO SCH (07:57)
[2016-10-28] MEDS: Sucralfate 1 GM TABLET PO SCH ×3 (07:57→17:58)
[2016-10-28] MEDS: Loratadine 10 MG TABLET PO SCH (07:57)
[2016-10-28] MEDS: Nystatin POWDER 30 GM BOTTLE TP SCH (07:58)
[2016-10-28] MEDS: Insulin LISPRO 300 UNITS/3 ML VIAL SQ SCH ×3 (07:58→17:58)
[2016-10-28 11:02] VITALS: BP 104/71
--- NOTE | 2016-10-28 11:31 | Gastroenterology Consult Note ---
<Ian Jose - Last Filed: 10/28/16 11:28> Date of Encounter: 10/28/16 Time of Encounter: 10:30 - Assessment and plan (1) Nausea and vomiting Current Visit: Yes Status: Acute Assessment and plan: s/p EGD which showed gastritis and upper GI series that showed reflux, mild narrowing of GE junction, esophagus never emtied which is concerning for dysmotility or dysfunction. Could be secondary to gastroparesis. Will try to complete gastric emptying study. Recommend: * Small frequent meals * Avoid fried and fatty foods * Chew food well * Blenderize food when symptomatic * Reduce or avoid high-fiber foods and medications * Avoid raw vegetables * If you have diabetes, keep blood sugars well controlled * Avoid medications that can delay gastric emptying such as narcotics, high- fiber medications, and high-fiber foods Qualifiers: Vomiting type: cyclical vomiting Vomiting Intractability: intractable Qualified Code(s): G43.A1 - Cyclical vomiting, intractable (2) DMII (diabetes mellitus, type 2) Current Visit: Yes Status: Chronic Qualifiers: Diabetes mellitus complication status: with unspecified complications Diabetes mellitus longterm insulin use: unspecified termite treater insulin use status Qualified Code(s): E11.8 - Type 2 diabetes mellitus with unspecified complications (3) Morbid obesity Current Visit: No Status: Chronic Qualifiers: Obesity type: due to excess calories Qualified Code(s): E66.01 - Morbid ( severe) obesity due to excess calories (4) COPD exacerbation Current Visit: Yes Status: Acute - Time Spent With Patient Total time spent is greater than 50% in coordination of care (as documented) at patient's floor/unit and/or counseling patient: GI History of Present Illness - Data of Consult Patient: new to practice Consult date: 10/28/16 Requesting Physician: Jensen Bangura MD - Consult Narrative Reason for consult: Persistent nausea and vomiting History of present illness: Ms. Pal is a 51 year old female with PMHx of COPD with home O2, DM, HTN, HLD, CKD III, CHF, and morbid obesity who presented to the ED with c/o intractable nausea and vomiting since July 2016. CT A/P with no acute intra- abdominal findings. Hepatic steatosis noted. No evidence of bowel obstruction or evidence of abnormal bowel wall thickening or distention. Appendix not identified. Gallbladder surgically absent. Mild fatty atrophy of the pancreas. Pt had upper GI series showed reflux, mild narrowing of GE junction, esophagus never emptied which is concerning for dysmotility or EGD 10/26/15 that showed small hiatal hernia and gastritis. Pt states that she is vomiting after every meal. Antiemetics are helping control her symptoms. She denies any NSAID use. Procedures: EGD 10/26/15 that showed small hiatal hernia and gastritis NSAIDs: None Anticoagulation: None Past Med Surg Social Fam HX - Past Medical History Medical history: arthritis, asthma, CHF, COPD, diabetes, GERD, hyperlipidemia, hypertension, osteoporosis, renal disease, thyroid disease, other (pulmonary hypertension, morbid obesity, VONDA, esophagitis, CKD, neuropathy) Psychiatric history: anxiety, depression, other - Past Surgical History Surgical History: appendectomy, , cholecystectomy, herniorrhaphy, orthopedic, other, sinus surgery, other (tonsillectomy) - Social History Smoking Status: Former smoker Packs per day: Smoked approximately 2 packs per day for most of her adult life quit x9yrs Smokeless Tobacco Status: No Alcohol use: none Drug use: none - Family History Mother Adopted: No Living Status: Hx Family Cardiac Disorders: No Hx Family Respiratory Disorders: No Hx Family Cancer: Yes Hx Family GI Disorders: No Hx Family Endocrine Disorder: No Hx Family Neuromuscular Disorders: No Hx Family Neurologic Disorders: No Hx Family HEENT Disorders: No Hx Family Autoimmune Disorders: No Sister Hx Family Cancer: Yes (Sister " female cancer requiring hysterectomy") Father Adopted: No Living Status: Hx Family Cardiac Disorders: No Hx Family Respiratory Disorders: No Hx Family Cancer: No Hx Family GI Disorders: Yes Hx Family Endocrine Disorder: Yes Hx Family Neuromuscular Disorders: No Hx Family Neurologic Disorders: No Hx Family HEENT Disorders: No Hx Family Autoimmune Disorders: No Maternal Grandfather History Unknown: Yes Hx Family Cancer: Yes - Gastrointestinal Gastrointestinal: Present: as per HPI - Constitutional Constitutional: as per HPI - EENT Eyes: as per HPI Ears: Present: as per HPI Nose, mouth and throat: Present: as per HPI - Cardiovascular Cardiovascular ROS: Present: as per HPI - Respiratory Respiratory IM: Present: as per HPI - Genitourinary Genitourinary: Absent: change in color, Urinary frequency - Neurological ROS Neurological GI: Present: as per HPI - Hematologic/Lymphatic Hematologic/Lymphatic pediatric: Present: as per HPI - Musculoskeletal Musculoskeletal ROS GI: Present: as per HPI - Integumentary Integumentary GI: Present: as per HPI - Psychiatric ROS Psychiatric GI: Present: as per HPI - Endocrine Endocrine IM: Present: as per HPI - Constitutional Vitals: Temp Pulse Resp BP Pulse Ox 98.4 F 86 18 104/71 99 10/28/16 11:01 10/28/16 11:01 10/28/16 11:01 10/28/16 11:01 10/28/16 11:01 General appearance: Present: cooperative, A&O X 3, no acute distress, answers questions appropriately Exam: Morbidly obese - Head Head exam: Present: atraumatic, normocephalic - Eye Eye exam: Present: normal appearance, sclera anicteric - ENT ENT exam: Present: mucous membranes moist - Neck Neck exam general surgery: Present: normal inspection, trachea midline - Respiratory Respiratory exam: Present: decreased breath sounds, CTAB - Cardiovascular Cardiovascular exam: Present: RRR, +S1, +S2 - GI/Abdominal GI/Abdominal exam: Present: soft, no peritoneal signs. Absent: distended, firm , guarding, tenderness - Rectal Rectal exam: Present: deferred - Extremities Exam Extremities exam: Present: warm - Neurological Exam Neurological exam: Present: no focal deficits - Psychiatric Psychiatric exam: Present: normal affect, normal mood - Skin Skin exam: Present: dry, intact, normal color, warm Results - Labs CBC & Chem 7: 10/26/16 11:18 10/26/16 11:18 Labs: Last Result Calcium 8.8 mg/dL (8.6-10.8) 10/26/16 11:18 Troponin I 0.02 ng/mL (0-0.03) 10/19/16 04:06 C-Reactive Protein 67 mg/L (Less than 5) H 10/19/16 04:06 Urine Opiates Screen Positive ng/mL (Xkuhje=533) H 10/19/16 10:09 Entire Visit Hgb 8.7 g/dL (11.5-15.4) L 10/26/16 11:18 Hct 27.5 % (35.3-44.9) L 10/26/16 11:18 PT 13.1 Seconds (9.4-12.1) H 10/19/16 04:24 Total Bilirubin 0.7 mg/dL (0.2-1.2) 10/18/16 23:00 AST 19 Units/L (5-34) 10/18/16 23:00 ALT 8 Units/L (0-55) 10/18/16 23:00 Lipase 29 Units/L (8-78) 10/18/16 23:00 - ABG ABG results: PT/INR, D-dimer PT 13.1 Seconds (9.4-12.1) H 10/19/16 04:24 Consult Discharge Plan - Plan Instructions: Heart Failure (DC), Asthma (DC), Chronic Obstructive Pulmonary Disease (DC) Referrals: Ian Jose CNP [Advanced Practice Nurse] - 11/12/16 3:20 pm Aide Foss DO [Primary Care Provider] - 11/01/16 10:00 am (Please follow up as schedule...) Prescriptions: Calcium Carbonate [Tums] 1,000 mg PO Q4HR #60 tab.chew Ondansetron [Zofran] 8 mg PO Q8HR #120 tablet Levofloxacin 500 mg PO Q12H #14 tablet Metoclopramide [Reglan] 10 mg PO QIDAC #120 tablet Sucralfate [Carafate] 1 gm PO QIDAC #120 <Gustavo Negrete - Last Filed: 10/28/16 17:36> Date of Encounter: 10/28/16 Time of Encounter: 17:40 - Time Spent With Patient Total time spent is greater than 50% in coordination of care (as documented) at patient's floor/unit and/or counseling patient: GI History of Present Illness - Data of Consult Requesting Physician: Jensen Bangura MD - Consult Narrative History of present illness: Ms. Pal is a 51 year old female - Constitutional Vitals: Temp Pulse Resp BP Pulse Ox 98.4 F 86 15 104/71 99 10/28/16 11:01 10/28/16 11:01 10/28/16 11:40 10/28/16 11:01 10/28/16 11:40 Results - Labs CBC & Chem 7: 10/26/16 11:18 10/26/16 11:18 Labs: Last Result Calcium 8.8 mg/dL (8.6-10.8) 10/26/16 11:18 Troponin I 0.02 ng/mL (0-0.03) 10/19/16 04:06 C-Reactive Protein 67 mg/L (Less than 5) H 10/19/16 04:06 Urine Opiates Screen Positive ng/mL ([id number]=824) H 10/19/16 10:09 Entire Visit Hgb 8.7 g/dL (11.5-15.4) L 10/26/16 11:18 Hct 27.5 % (35.3-44.9) L 10/26/16 11:18 PT 13.1 Seconds (9.4-12.1) H 10/19/16 04:24 Total Bilirubin 0.7 mg/dL (0.2-1.2) 10/18/16 23:00 AST 19 Units/L (5-34) 10/18/16 23:00 ALT 8 Units/L (0-55) 10/18/16 23:00 Lipase 29 Units/L (8-78) 10/18/16 23:00 - ABG ABG results: PT/INR, D-dimer PT 13.1 Seconds (9.4-12.1) H 10/19/16 04:24 - Attending Attestation I examined this patient and my medical decision-making was reviewed with the CREW MESS ATTENDANT/PA/Advanced Practice Nurse/Resident Physician. I agree with the documented findings, disposition and treatment plan as described except to the extent set forth below. Vision with the persistent nausea and vomiting. Patient she is feeling better after start of excellent. Patient most probably has gastroparesis. Recommend low-dose regimen such as 5 mg before each meal 3 times a day and gastroparesis diet as recommended
[2016-10-28 15:35] LABS: Bilirubin,Urine Small (Negative); Blood,Urine Moderate (Negative); Clarity,Urine Turbid (Clear); Color,Urine Dark Yellow (Yellow); Glucose,Urine (UA) Normal (Normal); Ketones,Urine 15 mg/dL (Negative); Leukocyte Esterase,Urine Large (Negative); Nitrite,Urine Positive (Negative); Protein,Urine 30 mg/dL (Neg-Trace); Urobilinogen,Urine Normal (Normal)
--- NOTE | 2016-10-28 15:35 | Discharge Summary ---
Date of Encounter: 10/28/16 Time of Encounter: 15:24 - Discharge Diagnosis (1) COPD exacerbation Priority: Secondary Status: Acute (2) Goals of care, counseling/discussion Priority: Secondary Status: Acute (3) HLD (hyperlipidemia) Priority: Secondary Status: Chronic Qualifiers: Hyperlipidemia type: mixed hyperlipidemia Qualified Code(s): E78.2 - Mixed hyperlipidemia (4) HTN (hypertension) Priority: Secondary Status: Chronic Qualifiers: Hypertension type: unspecified secondary hypertension Qualified Code(s): I15.9 - Secondary hypertension, unspecified; I15 - Secondary hypertension (5) Intractable cyclical vomiting with nausea Priority: Primary Status: Chronic (6) Morbid obesity with BMI of 70 and over, adult Priority: Secondary Status: Chronic (7) VONDA (obstructive sleep apnea) Priority: Secondary Status: Chronic (8) Acute kidney injury superimposed on chronic kidney disease Priority: Secondary Status: Resolved - Discharge Medications Prescriptions: Calcium Carbonate [Tums] 1,000 mg PO Q4HR #60 tab.chew Ondansetron [Zofran] 8 mg PO Q8HR #120 tablet Levofloxacin 500 mg PO Q12H #14 tablet Metoclopramide [Reglan] 10 mg PO QIDAC #120 tablet Sucralfate [Carafate] 1 gm PO QIDAC #120 Home Medications: Cetirizine HCl [Zyrtec] 10 mg PO DAILY 07/16/15 [History] Cholecalciferol (Vitamin D3) [Vitamin D3] 5,000 unit PO DAILY 07/16/15 [History] Ferrous Sulfate 325 mg PO TID 07/16/15 [History] Glimepiride [Amaryl] 1 mg PO BID 07/16/15 [History] Insulin Glargine,Hum.rec.anlog [Lantus Solostar] 67 unit SQ BID 07/16/15 [ History] Atorvastatin [Lipitor] 40 mg PO HS 02/13/16 [History] Guaifenesin [Mucinex] 600 mg PO Q12H 02/13/16 [History] Magnesium Oxide [Mag-Ox] 400 mg PO BID 02/13/16 [History] Oxybutynin [Ditropan] 2.5 mg PO BID 02/13/16 [History] Budesonide/Formoterol 160/4.5 [Symbicort 160/4.5] 2 puff IH BIDR #1 inhaler 04/08 [Rx] Capsaicin 0.025% [Trixaicin] 1 appl TP TID 05/30/16 [History] Clotrimazole/Betameth Dip CRM [Lotrisone CRM] 1 appl TP BID 05/30/16 [History] Gabapentin [Neurontin] 300 mg PO BID 05/30/16 [History] Insulin LISPRO [Humalog Kwikpen U-100] 30 unit SQ TIDWM 05/30/16 [History] LORazepam [Ativan] 1 mg PO BID PRN 05/30/16 [History] Levothyroxine [Synthroid] 175 mcg PO DAILY 05/30/16 [History] Omeprazole [PriLOSEC] 20 mg PO BIDAC 05/30/16 [History] Oxygen 3.5 l NS AD 05/30/16 [History] Saline Nasal [place] [[place] Nasal [place]] 1 - 2 spray NS Q4-6H PRN 05/30/16 [ History] Albuterol Sulfate [Albuterol Inhaler] 2 puff IH Q4HR PRN 30 Days 06/07/16 [Rx] LORazepam Oral Conc [Ativan Oral Conc] 1 mg PO Q6HR #30 mls 07/08/16 [Rx] OxyCODONE Immed Rel [Roxicodone 5 MG] 5 mg PO Q2H PRN #70 tab 07/08/16 [Rx] Cyanocobalamin (B-12) [Vitamin B12] 1,000 mcg PO DAILY 10/19/16 [History] Furosemide [Lasix] 80 mg PO BID 10/19/16 [History] Calcium Carbonate [Tums] 1,000 mg PO Q4HR #60 tab.chew 10/28/16 [Rx] Levofloxacin 500 mg PO Q12H #14 tablet 10/28/16 [Rx] Metoclopramide [Reglan] 10 mg PO QIDAC #120 tablet 10/28/16 [Rx] Ondansetron [Zofran] 8 mg PO Q8HR #120 tablet 10/28/16 [Rx] Sucralfate [Carafate] 1 gm PO QIDAC #120 10/28/16 [Rx] Allergies/Adverse Reactions: Allergies aspartame Allergy (Verified 06/08/16 15:48) Hives ciprofloxacin [From Cipro] Allergy (Verified 06/08/16 15:48) Hives escitalopram [From Lexapro] Allergy (Verified 06/08/16 15:48) Hives morphine Allergy (Verified 06/08/16 15:48) Hives Penicillins Allergy (Verified 06/08/16 15:48) Hives prochlorperazine Allergy (Verified 06/08/16 15:48) Hives haloperidol [From Haldol] Adverse Reaction (Verified 10/19/16 05:29) Hallucinating Procedures/tests Complete & Pending: Procedures Performed prior 72 hours Category Date Time Status NM gastric emptying study [NM] Routine Exams 10/30/16 11:38 Ordered Date of admission: 10/20/16 14:06 Primary care physician: Aide Foss DO Consults: 10/26/16 10:49 Consult to Palliative Care [CONS] Routine Comment: code status Consulting Provider: Palliative Care [place] 10/27/16 13:29 Consult to Gastroenterology [CONS] Routine Consulting Provider: Gastroenterology [facility] Reason for Consult: please evaluate for persistent nasuea and vomiting in this patinet s/p EGD and upper GI series that showed GERD and mild gastritis. thank you, Call Completed: Yes 10/20/16 14:24 Consult to Surgery [CONS] Routine Consulting Provider: Surgery [facility] Reason for Consult: Persistent vomitting Call Completed: Yes Discharging clinician: Kaylah Pitts Anticipated date of discharge: 10/28/16 - Patient Status Disposition: Home Health Service Condition: Fair Functional capacity at discharge: bed bound Overall status at discharge: patient is back to baseline - Discharge Instructions Instructions: Heart Failure (DC), Asthma (DC), Chronic Obstructive Pulmonary Disease (DC) Follow Up With: Ian Jose CNP [Advanced Practice Nurse] - 11/12/16 3:20 pm Aide Foss DO [Primary Care Provider] - 11/01/16 10:00 am (Please follow up as schedule...) - Diet and Activity Activity: as per physical therapy Diet: advance to your usual diet Interval History: 51-year-old female with the past medical history of diabetes, stage III CKD, COPD requiring supplemental oxygen 24/7 with BiPAP during sleep, pulmonary hypertension, morbid obesity presents with a several month history. This has been going on at least since with a worsening since July. She states that everything she eats come and that she also throws up yellow or green fluid. She has had a greater than 100 pound weight loss without trying to lose weight. She has no appetite. She has had a decrease in her bowel movements from once a day to every other day, she also notes that she now has diarrhea - sometimes with urgency. Her last EGD and colonoscopy were 2-3 years ago in [place]. As far as she can recall, the results were normal. Chest CT shows pulmonary hypertension. Abdominal/pelvic CT shows hepatic steatosis. Hospital course: she was admitted for intractable nausea and vomiting, surgery was consulted and EGD was done. Even though she has hospice, she wanted workup done for her nausea and vomiting. As per the EGD, it only showed mild gastritis. Negative for H pylori. She also had upper GI series which she could not tolerate the procedure however it showed esophageal dysmotility with GERD features. She was started on Zofran, Reglan was started for GERD and possible gastroparesis and also started Ernst for GERD. She improved with the medications and her nausea improved. She was also consulted for any further intervention, they recommended follow-up as outpatient to complete gastric emptying study. It was noted that her urine was purple in color. UA was checked and it showed evidence of UTI. She has indwelling Foleys catheter. She is not febrile with no leukocytosis and not sure if she can complain of urinary symptoms. Was started on by mouth levofloxacin, she will follow up as outpatient with PCP she is being dc in stable condition with home hospice. Time spent discussing smoking cessation with patient: more than 10 minutes - Time Spent with Patient Total time spent providing and/or coordinating discharge services: Greater than 30 minutes - Constitutional Vitals: Temp Pulse Resp BP Pulse Ox 98.4 F 86 15 104/71 99 10/28/16 11:01 10/28/16 11:01 10/28/16 11:40 10/28/16 11:01 10/28/16 11:40 General appearance: Present: A&O X 3, morbidly obese, no acute distress, answers questions appropriately Exam: General appearance: Present: cooperative, A&O X 3, no acute distress, answers questions appropriately Exam: Morbidly obese - Head Head exam: Present: atraumatic, normocephalic - Eye Eye exam: Present: normal appearance, sclera anicteric - ENT ENT exam: Present: mucous membranes moist - Neck Neck exam general surgery: Present: normal inspection, trachea midline - Respiratory Respiratory exam: Present: decreased breath sounds, CTAB - Cardiovascular Cardiovascular exam: Present: RRR, +S1, +S2 - GI/Abdominal GI/Abdominal exam: Present: soft, no peritoneal signs. Absent: distended, firm , guarding, tenderness - Rectal Rectal exam: Present: deferred - Extremities Exam Extremities exam: Present: warm - Neurological Exam Neurological exam: Present: no focal deficits - Psychiatric Psychiatric exam: Present: normal affect, normal mood - Skin Skin exam: Present: dry, intact, normal color, warm
[2016-10-28 15:36] LABS: Bacteria,Urine Many per hpf (None-Few); Hyaline Casts,Urine None Seen per lpf (None-Few); Squamous Epithelial Cell,Urine Many per lpf (None-Few); WBC,Urine TNTC per hpf (0-3)
[2016-10-28 15:48] LABS: RBC,Urine 30-50 per hpf (0-3)
--- NOTE | 2016-10-28 16:11 | Physician Discharge Referral ---
Home Health/Hosp Referral Info Transfer to: Hospice Attending Provider: gianluca bardales - Diagnosis (1) COPD exacerbation Status: Acute (2) Goals of care, counseling/discussion Status: Acute (3) HLD (hyperlipidemia) Status: Chronic (4) HTN (hypertension) Status: Chronic (5) Intractable cyclical vomiting with nausea Status: Chronic (6) Morbid obesity with BMI of 70 and over, adult Status: Chronic (7) VONDA (obstructive sleep apnea) Status: Chronic (8) Acute kidney injury superimposed on chronic kidney disease Status: Resolved - Respiratory Orders Oxygen / L per min (3l), Other (CPAP) Smoking Cessation: Smoking cessation has been advised. For more information, call the [employer] Tobacco Quit Line at 3-343-SVEX-NOW. - Diet/Nutrition Diet/Nutrition Orders: Mechanical Soft - Activity Activity Orders: Bedrest - Services Needed Following services are medically necessary services: Nursing, Home Health Aide - Transfer Medications Prescriptions: Calcium Carbonate [Tums] 1,000 mg PO Q4HR #60 tab.chew Ondansetron [Zofran] 8 mg PO Q8HR #120 tablet Levofloxacin 500 mg PO Q12H #14 tablet Metoclopramide [Reglan] 10 mg PO QIDAC #120 tablet Sucralfate [Carafate] 1 gm PO QIDAC #120 Home Medications: Cetirizine HCl [Zyrtec] 10 mg PO DAILY 07/16/15 [History] Cholecalciferol (Vitamin D3) [Vitamin D3] 5,000 unit PO DAILY 07/16/15 [History] Ferrous Sulfate 325 mg PO TID 07/16/15 [History] Glimepiride [Amaryl] 1 mg PO BID 07/16/15 [History] Insulin Glargine,Hum.rec.anlog [Lantus Solostar] 67 unit SQ BID 07/16/15 [ History] Atorvastatin [Lipitor] 40 mg PO HS 02/13/16 [History] Guaifenesin [Mucinex] 600 mg PO Q12H 02/13/16 [History] Magnesium Oxide [Mag-Ox] 400 mg PO BID 02/13/16 [History] Oxybutynin [Ditropan] 2.5 mg PO BID 02/13/16 [History] Budesonide/Formoterol 160/4.5 [Symbicort 160/4.5] 2 puff IH BIDR #1 inhaler 04/08 [Rx] Capsaicin 0.025% [Trixaicin] 1 appl TP TID 05/30/16 [History] Clotrimazole/Betameth Dip CRM [Lotrisone CRM] 1 appl TP BID 05/30/16 [History] Gabapentin [Neurontin] 300 mg PO BID 05/30/16 [History] Insulin LISPRO [Humalog Kwikpen U-100] 30 unit SQ TIDWM 05/30/16 [History] LORazepam [Ativan] 1 mg PO BID PRN 05/30/16 [History] Levothyroxine [Synthroid] 175 mcg PO DAILY 05/30/16 [History] Omeprazole [PriLOSEC] 20 mg PO BIDAC 05/30/16 [History] Oxygen 3.5 l NS AD 05/30/16 [History] Saline Nasal [place] [[place] Nasal [place]] 1 - 2 spray NS Q4-6H PRN 05/30/16 [ History] Albuterol Sulfate [Albuterol Inhaler] 2 puff IH Q4HR PRN 30 Days 06/07/16 [Rx] LORazepam Oral Conc [Ativan Oral Conc] 1 mg PO Q6HR #30 mls 07/08/16 [Rx] OxyCODONE Immed Rel [Roxicodone 5 MG] 5 mg PO Q2H PRN #70 tab 07/08/16 [Rx] Cyanocobalamin (B-12) [Vitamin B12] 1,000 mcg PO DAILY 10/19/16 [History] Furosemide [Lasix] 80 mg PO BID 10/19/16 [History] Calcium Carbonate [Tums] 1,000 mg PO Q4HR #60 tab.chew 10/28/16 [Rx] Levofloxacin 500 mg PO Q12H #14 tablet 10/28/16 [Rx] Metoclopramide [Reglan] 10 mg PO QIDAC #120 tablet 10/28/16 [Rx] Ondansetron [Zofran] 8 mg PO Q8HR #120 tablet 10/28/16 [Rx] Sucralfate [Carafate] 1 gm PO QIDAC #120 10/28/16 [Rx] Allergies/Adverse Reactions: Allergies aspartame Allergy (Verified 06/08/16 15:48) Hives ciprofloxacin [From Cipro] Allergy (Verified 06/08/16 15:48) Hives escitalopram [From Lexapro] Allergy (Verified 06/08/16 15:48) Hives morphine Allergy (Verified 06/08/16 15:48) Hives Penicillins Allergy (Verified 06/08/16 15:48) Hives prochlorperazine Allergy (Verified 06/08/16 15:48) Hives haloperidol [From Haldol] Adverse Reaction (Verified 10/19/16 05:29) Hallucinating Certification: Further, I certify that my clinical findings support that this patient is homebound (i.e. absences from home require considerable and taxing effort and are for medical reasons or syn[employer] services or infrequently or short duration when for other reasons) because: Homebound Reason: Patient requires assistance of a person or device to safely leave home Attestation: My signature below is to certify that this patient is under my care and that I, or nurse practitioner, or a physician's senior office support assistant sosa working with me, has a face-to -face encounter with this patient.
== END 2016-10-28 18:39 | disposition home health service (06) | DRG 190 ==
LOC: 3BNU 19:18 → EMEROO 19:18 → SUATTDRO 10-19 01:11 → 3BNU 10-19 02:02 → 2ANU 10-20 17:41
PROVIDERS: ADMIT Nurse Practitioner Family; ATTEND Internal Medicine